=== PATIENT | female | born 1980 | race Caucasian/White ===

== ENCOUNTER → 2020-12-06 16:07 | Outpatient (CLI) | payer OTHER, SELFPAY ==
[2020-12-06 15:27] VITALS: BMI 27.3
[2020-12-09 21:04] LABS: HPV APTIMA, High Risk Negative (Negative)
== END ==
PROVIDERS: PCP Family Medicine; Referring Provider Nurse Practitioner Women's Health; Visit Provider Nurse Practitioner Women's Health
DX: Z12.4 Encounter for screening for malignant neoplasm of cervix (principal)
CPT/HCPCS: 87624; 88175; G0145

== ENCOUNTER → 2021-04-06 12:27 | Outpatient (CLI) | payer OTHER, SELFPAY ==
[2020-12-06 15:27] VITALS: BMI 27.3
--- NOTE | 2021-04-06 12:38 | MRI_ITS ---
STUDY: MRI BRAIN WITH AND WITHOUT CONTRAST (ATTENTION INTERNAL AUDITORY CANALS - I.A.C.''s) REASON FOR EXAM: Female, 40 years old. DIZZINESS --attn IAC TECHNIQUE: Standardized multiplanar fat and water weighted pulse sequences were obtained. IV 13cc dotarem was administered for the contrast portion of the examination. COMPARISON: None. FINDINGS: Normal bilateral temporal bones. Normal bilateral internal auditory canals. There is no demonstrated intracanalicular or cisternal vestibular schwannoma (acoustic neuroma). There is no enhancement of the bilateral VIIth or VIIIth cranial nerves. Normal bilateral cochlea, vestibules and semicircular canals. Normal size of the ventricles and extra-axial spaces for the patient''s age. Normal white matter tracts of the supratentorial brain. There is no evidence for recent intracranial ischemia or other cause of cytotoxic edema on diffusion weighted imaging (DWI). Normal bilateral basal ganglia. Normal thalami. Normal flow voids within the major intracranial circulation suggesting patency by spin echo criteria. Normal venous enhancement. There is no enhancing intra-axial or extra-axial abnormality. There is no extra-axial fluid accumulation. Normal sella turcica, pituitary gland, infundibular stalk, optic chiasm and hypothalamus. Normal tectal plate and pineal gland. Normal midbrain, fatou and medulla. Normal cerebellum. Normal basal cisterns. No demonstrated orbital abnormality, within the constraints of a routine brain study. Normal visualized paranasal sinuses. Normal calvarium and skull base. Normal visualized soft tissue structures. Normal visualized upper cervical spine. MRI/Brain W/WO Contrast IMPRESSION: Normal unenhanced and enhanced MRI of the bilateral internal auditory canals (I.A.C''s). Electronically Signed: Adarsh Mendoza MD at 10:21 EDT Tel , Service support ,
== END ==
PROVIDERS: PCP Family Medicine; Referring Provider Otolaryngology; Visit Provider Otolaryngology
DX: R42 Dizziness and giddiness (principal)
CPT/HCPCS: 70553; A9575

== ENCOUNTER → 2022-03-01 | Outpatient (CLI) | payer OTHER, SELFPAY ==
--- NOTE | 2022-03-01 12:19 | BI_ITS ---
MAMMOGRAPHY - BILATERAL SCREENING REASON FOR EXAM: Female, 41 years old. Routine annual screening examination. PERTINENT HISTORY: Non-contributory. TECHNIQUE: Digital bilateral breast kaylan (3D mammographic acquisition) in the CC and MLO projections. 2-D mediolateral oblique (MLO) and craniocaudad (CC) views of both breasts were obtained. CAD: Full Field Digital Mammography with Computer Added Detection was performed. COMPARISON: Comparison is made with prior outside examination dated 05/06/2018. FINDINGS: Breast Composition: The breasts are heterogeneously dense, which may obscure small masses. There are no dominant masses or suspicious calcifications. No other significant abnormalities are identified. There has been no significant change since the prior study. BI/SCRN MAMM (CAD)W/KAYLAN BILAT IMPRESSION: Stable bilateral screening mammogram. Yearly follow-up mammogram recommended. (A) ASSESSMENT CATEGORY: BIRADS Category 1: Negative. A letter regarding these results will be sent to the patient by the facility within 30 days. Approximately 10% of breast cancers are not detected by mammography. A normal mammogram should not delay biopsy of a clinically suspicious abnormality. [id number] Electronically Signed: Arian Zhu MD at 13:02 EDT ,
== END | disposition home or self-care (01) ==
LOC: OPBI 12:19
PROVIDERS: PCP Family Medicine; Referring Provider Nurse Practitioner Women's Health; Visit Provider Nurse Practitioner Women's Health
DX: Z12.31 Encounter for screening mammogram for malignant neoplasm of breast (principal)
CPT/HCPCS: 77063; 77067

== ENCOUNTER → 2022-03-05 | Outpatient (CLI) | payer OTHER, SELFPAY ==
--- NOTE | 2022-03-05 | SKTAG_PTH ---
PATIENT: JANETTE BARLOW LOC: [facility] U#:[id number] AGE/SX: 41/F ROOM: RE03/05/[address]: Dr. Cassidy Villa MD : 1980 BED: DIS: 03/05/2022 SPEC #: [id number] RECD: 03/05/22 16:23 STATUS: PAU TATUM #: [id number] SUE: 03/05/22 00:[address]: Cassidy Villa DEPT: SURGICAL PATHOLOGY RECD BY: Jose Ramon Catherine ENTERED: 03/06/22 11:55 SP TYPE: SKIN TAG LANIE DR: Dr. Saad Rocha MD Tissues: Skin appendage, NOS Procedures: Surgery Specimen Level IV HEADER OPERATION: Skin tag removal (vulva) PRE-OP DIAGNOSIS: Vulvar skin tag TISSUE SUBMITTED: Vulvar skin tag MICROSCOPIC DIAGNOSIS Vulvar lesion, biopsy: Polypoid intradermal nevus. AM:flora 03/07/2022 MICROSCOPIC DESCRIPTION Slides are reviewed. GROSS DESCRIPTION Received is one container labeled with the patient's name and not further designated. The specimen consists of a piece of stewart-white skin measuring 0.5 x 0.5 x 0.3 cm. The specimen is bisected and submitted entirely in one cassette. / LILIBETH:flora 03/06/2022 TC:5 CPT: 38524
== END | disposition home or self-care (01) ==
LOC: LABSPEC 16:32
PROVIDERS: PCP Family Medicine; Visit Provider Obstetrics & Gynecology
DX: L91.8 Other hypertrophic disorders of the skin (principal)
CPT/HCPCS: 88304; 88305

== ENCOUNTER → 2023-03-15 | Outpatient (CLI) | payer OTHER, SELFPAY ==
--- NOTE | 2023-03-15 10:30 | BI_ITS ---
MAMMOGRAPHY - BILATERAL SCREENING REASON FOR EXAM: Female, 42 years old. Routine annual screening examination. PERTINENT HISTORY: Non-contributory. TECHNIQUE: Digital bilateral breast kaylan (3D mammographic acquisition) in the CC and MLO projections. 2-D mediolateral oblique (MLO) and craniocaudad (CC) views of both breasts were obtained. CAD: Full Field Digital Mammography with Computer Added Detection was performed. COMPARISON: Mammogram from 03/01/2022. FINDINGS: Breast Composition: The breasts are heterogeneously dense, which may obscure small masses. There are no dominant masses or suspicious calcifications. No other significant abnormalities are identified. There has been no significant change since the prior study. BI/SCRN MAMM (CAD)W/KAYLAN BILAT IMPRESSION: Stable bilateral screening mammogram. Yearly follow-up mammogram recommended. (A) ASSESSMENT CATEGORY: BIRADS Category 1: Negative. A letter regarding these results will be sent to the patient by the facility within 30 days. Approximately 10% of breast cancers are not detected by mammography. A normal mammogram should not delay biopsy of a clinically suspicious abnormality. Electronically Signed: Devin Triplett DO at 16:06 EDT ,
== END | disposition home or self-care (01) ==
LOC: OPBI 10:27
PROVIDERS: PCP Family Medicine; Referring Provider Nurse Practitioner Women's Health; Visit Provider Nurse Practitioner Women's Health
DX: Z12.31 Encounter for screening mammogram for malignant neoplasm of breast (principal)
CPT/HCPCS: 77063; 77067

== ENCOUNTER → 2024-03-10 | Outpatient (CLI) | payer OTHER, SELFPAY ==
[2024-03-10 13:38] LABS: HIV - WCH Non-Reactive (Nonreactive); Hepatitis C Antibody Non-Reactive (Nonreactive); Syphilis Antibodies Non-reactive
[2024-03-11 10:09] LABS: HSV 1 IgG < 0.91 index (0.00-0.90); HSV 2 IgG < 0.91 index (0.00-0.90)
[2024-03-12 20:09] LABS: Chlamydia By Nucleic Acid AMP Negative (Negative); Gonococcus By Nucleic Acid AMP Negative (Negative)
== END | disposition home or self-care (01) ==
PROVIDERS: PCP Family Medicine; Referring Provider Nurse Practitioner Women's Health; Visit Provider Nurse Practitioner Women's Health
DX: Z20.2 Contact with and (suspected) exposure to infections with a predominantly sexual mode of transmission (principal)
CPT/HCPCS: 36415; 86695; 86696; 86703; 86780; 86803; 87491; 87591

== ENCOUNTER → 2024-03-16 | Outpatient (CLI) | payer OTHER, SELFPAY ==
--- NOTE | 2024-03-16 13:13 | BI_ITS ---
MAMMOGRAPHY - BILATERAL SCREENING REASON FOR EXAM: Female, 43 years old. Routine annual screening examination. PERTINENT HISTORY: Non-contributory. TECHNIQUE: Digital bilateral breast kaylan (3D mammographic acquisition) in the CC and MLO projections. 2-D mediolateral oblique (MLO) and craniocaudad (CC) views of both breasts were obtained. CAD: Full Field Digital Mammography with Computer Added Detection was performed. COMPARISON: Comparison is made with prior study dated March 15, 2023 and March 01, 2022. FINDINGS: Breast Composition: The breasts are heterogeneously dense, which may obscure small masses. There are no dominant masses or suspicious calcifications. No other significant abnormalities are identified. There has been no significant change since the prior study. BI/SCRN MAMM (CAD)W/KAYLAN BILAT IMPRESSION: Stable bilateral screening mammogram. Yearly follow-up mammogram recommended. (A) ASSESSMENT CATEGORY: BIRADS Category 1: Negative. A letter regarding these results will be sent to the patient by the facility within 30 days. Approximately 10% of breast cancers are not detected by mammography. A normal mammogram should not delay biopsy of a clinically suspicious abnormality. [id number] Electronically Signed: Arian Zhu MD at 14:26 EDT ,
== END | disposition home or self-care (01) ==
PROVIDERS: PCP Family Medicine; Referring Provider Nurse Practitioner Women's Health; Visit Provider Nurse Practitioner Women's Health
DX: Z12.31 Encounter for screening mammogram for malignant neoplasm of breast (principal)
CPT/HCPCS: 77063; 77067

== ENCOUNTER → 2024-06-23 | Outpatient (CLI) | payer OTHER, SELFPAY ==
--- NOTE | 2024-06-23 16:21 | US_ITS ---
HISTORY: check position of IUD. TECHNIQUE: Transabdominal and transvaginal pelvic ultrasound was performed with alegre scale and color Doppler evaluation. 158 images. COMPARISON: None. FINDINGS: UTERUS: 8.5 x 4.5 x 5.9 cm. 1.2 x 1.3 x 1.4 cm and 1.5 x 1.7 x 1.8 cm round heterogeneous lesions anteriorly. ENDOMETRIAL THICKNESS: 4 mm. Intrauterine device in place. RIGHT OVARY: 1.1 x 1.1 x 3.2 cm. No adnexal masses. LEFT OVARY: 3 x 5 x 5.4 cm. 3.4 x 4.3 x 4.5 cm simple cyst. FREE FLUID: Very mild. URINARY BLADDER: Well-distended at 457 cc. US/Pelvic w/ Transvaginal IMPRESSION: Intrauterine device in place. Leiomyomatous uterus. 4.5 cm left ovarian cyst with mild free fluid in the pelvis; no follow-up is necessary. Electronically Signed: Angie Anderson MD at 8:37 EDT ,
== END | disposition home or self-care (01) ==
LOC: US 16:20
PROVIDERS: PCP Family Medicine; Referring Provider Nurse Practitioner Women's Health; Visit Provider Nurse Practitioner Women's Health
DX: R10.2 Pelvic and perineal pain (principal); Z30.431 Encounter for routine checking of intrauterine contraceptive device
CPT/HCPCS: 76830; 76856

== ENCOUNTER → 2025-03-19 | Outpatient (CLI) | payer OTHER, SELFPAY ==
--- NOTE | 2025-03-19 15:30 | BI_ITS ---
EXAM: SCRN MAMM (CAD)W/KAYLAN BILAT DATE: 03/19/2025 CLINICAL HISTORY: F, Age 44 y/o , SCREENING FOR BREAST CANCER TECHNIQUE: SCRN MAMM (CAD)W/KAYLAN BILAT COMPARISON: Prior exam(s) were compared FINDINGS: TISSUE DENSITY: The breasts are heterogeneously dense, which may obscure small masses. Bilateral Breast Mammographic Findings: Right breast: There is an asymmetry in the inner right breast posterior depth. Left breast: No significant masses, calcifications or other abnormalities are identified. BI/SCRN MAMM (CAD)W/KAYLAN BILAT IMPRESSION: Additional views are recommended of the right breast. No mammographic evidence of malignancy in the left breast. OVERALL FINAL ASSESSMENT BI-RADS 0: INCOMPLETE - NEED ADDITIONAL IMAGING EVALUATION. RECOMMENDATION: Additional Views obtained/call backs A letter with findings and recommendations will be mailed to the patient. Reading Location: [id number]
== END | disposition home or self-care (01) ==
LOC: OPBI 15:25
PROVIDERS: PCP Family Medicine; Referring Provider Nurse Practitioner Women's Health; Visit Provider Nurse Practitioner Women's Health
DX: Z12.31 Encounter for screening mammogram for malignant neoplasm of breast (principal)
CPT/HCPCS: 77063; 77067

== ENCOUNTER → 2025-03-23 | Outpatient (CLI) | payer OTHER, SELFPAY ==
--- NOTE | 2025-03-23 09:29 | BI_ITS ---
EXAM: DIAG MAMM W/CAD, UNILAT; BREAST LIMITED UNILATERAL; RT BRST UNILAT KAYLAN ADD-ON 03/23/2025 CLINICAL HISTORY: F, Age 44 y/o , ASYMMETRY TECHNIQUE: DIAG MAMM W/CAD, UNILAT; BREAST LIMITED UNILATERAL; RT BRST UNILAT KAYLAN ADD-ON. COMPARISON: Prior exam(s) dated 03/19/2025, 03/16/2024, 03/15/2023, 03/01/2022. FINDINGS: MAMMOGRAM: TISSUE DENSITY: The breasts are heterogeneously dense, which may obscure small masses. The mammogram demonstrates that the patient has dense breasts. Supplemental screening with whole breast ultrasound or MRI may be considered for further evaluation. Unilateral Right Breast Mammographic Findings: Follow-up examination performed for the asymmetry in the right breast visualized on examination of 03/19/2025. On the present examination, the asymmetry in the medial right breast at posterior depth partially effaces. ULTRASOUND: Targeted right breast ultrasound performed of the medial right breast. On the present examination, there is no sonographic correlate. BI/Rt Brst Unilat Kaylan Add-On IMPRESSION: The asymmetry in the medial right breast likely represents dense fibroglandular tissues. OVERALL FINAL ASSESSMENT BI-RADS 2: BENIGN RECOMMEND ANNUAL MAMMOGRAPHIC SCREENING. RECOMMENDATION: Routine annual follow-up in 1 Year A letter with findings and recommendations will be mailed to the patient. Reading Location: [id number]
--- NOTE | 2025-03-23 09:29 | BI_ITS ---
EXAM: DIAG MAMM W/CAD, UNILAT; BREAST LIMITED UNILATERAL; RT BRST UNILAT KAYLAN ADD-ON 03/23/2025 CLINICAL HISTORY: F, Age 44 y/o , ASYMMETRY TECHNIQUE: DIAG MAMM W/CAD, UNILAT; BREAST LIMITED UNILATERAL; RT BRST UNILAT KAYLAN ADD-ON. COMPARISON: Prior exam(s) dated 03/19/2025, 03/16/2024, 03/15/2023, 03/01/2022. FINDINGS: MAMMOGRAM: TISSUE DENSITY: The breasts are heterogeneously dense, which may obscure small masses. The mammogram demonstrates that the patient has dense breasts. Supplemental screening with whole breast ultrasound or MRI may be considered for further evaluation. Unilateral Right Breast Mammographic Findings: Follow-up examination performed for the asymmetry in the right breast visualized on examination of 03/19/2025. On the present examination, the asymmetry in the medial right breast at posterior depth partially effaces. ULTRASOUND: Targeted right breast ultrasound performed of the medial right breast. On the present examination, there is no sonographic correlate. BI/DIAG MAMM W/CAD, UNILAT IMPRESSION: The asymmetry in the medial right breast likely represents dense fibroglandular tissues. OVERALL FINAL ASSESSMENT BI-RADS 2: BENIGN RECOMMEND ANNUAL MAMMOGRAPHIC SCREENING. RECOMMENDATION: Routine annual follow-up in 1 Year A letter with findings and recommendations will be mailed to the patient. Reading Location: [id number]
--- OUTSIDE RECORDS SUMMARY | 2025-03-23 19:55 | XMS RPT_ITS | CCD ---
Author Organization [facility] CliniSynj Care Team Providers Care Internal Auditor Name Role Phone Cassidy Villa MD Unavailable Schloneger, Lara E Unavailable Unavailable Schloneger Lara E Unavailable Unavailable SOUZDALNITSKI, NEHA Admitting Unavailabl e SOUZDALNITSKI, NEHA Attending Unavailabl e AA UNKNOWN PCP, UNKNOWN Primary Care Unavaila ble SOUZDANICOLAKI, NEHA Admitting Unavailabl e SOUZDALNITSKI, NEHA Attending Unavailabl e AA UNKNOWN PCP, UNKNOWN Primary Care Unavaila Deniz [place] Primary Care Provider [phone] Dr. Deniz Melchor Primary Care Provider Dr. Deniz Melchor Referring Provider Mohamud ENGINE LATHE SET UP OPERATORCORNELIUS Attending Provider Dr. Cassidy Villa Attending Provider [phone] Dr. Deniz Melchor Primary Care Provider [phone] Dr. Deniz Melchor Referring Provider Mohamud ENGINE LATHE SET UP OPERATORCORNELIUS Attending Provider [phone] DENIZ MELCHOR MD Primary Care Physician Ashly PT, Sue Unavailable DENIZ Solis MD Primary Care Unavailable DENIZ MELCHOR MD Attending Unavailable PAIGE GIBSON MD Attending Unavailable DENIZ MELCHOR MD Primary Care Unavailable DENIZ MELCHOR MD Primary Care Unavailable PAIGE GIBSON MD Attending Unavailable DENIZ MELCHOR MD Primary Care Unavailable DENIZ MELCHOR MD Attending Unavailable DENIZ MELCHOR MD Attending Unavailable DENIZ MELCHOR MD Primary Care Unavailable Dr. Deniz Melchor MD Primary Care Provider Dr. Deniz Melchor MD Referring Provider [place] ENGINE LATHE SET UP OPERATOR-C, Kesha Attending Provider [place] ENGINE LATHE SET UP OPERATOR, Kesha Attending Unavailable Deniz Melchor Primary Care Unavailable Deniz Melchor Referring Unavailable [place] ENGINE LATHE SET UP OPERATOR, Kesha Attending Unavailable Mohamud ENGINE LATHE SET UP OPERATOR, Kesha Referring Unavailable Ray Melchoren Primary Care Unavailable [place] ENGINE LATHE SET UP OPERATOR, Kesha Attending Unavailable Mohamud ENGINE LATHE SET UP OPERATOR, Kesha Referring Unavailable Deniz Melchor Primary Care Unavailable Mohamud ENGINE LATHE SET UP OPERATOR, Kesha Referring Unavailable [place] ENGINE LATHE SET UP OPERATOR, Kesha Attending Unavailable Ray Melchoren Primary Care Unavailable Mohamud ENGINE LATHE SET UP OPERATOR, Kesha Attending Unavailable AjRayen Primary Care Unavailable Deniz Melchor Referring Unavailable [place] ENGINE LATHE SET UP OPERATOR-C, Kesha Referring Provider Allergies Allergy Classification Reported Allergen(s) Allergy Type Date of Onset Reaction(s) Facility (4 sources) [facility]ript[facility] Drug Allergy 7 [facility] (2 sources) Albuterol Drug Allergy 0 [facility] Work Phone: (7 sources) POISON BEA EXTRACT Drug Allergy 0 Hives, Itching, Swelling [facility] Work Phone: (11 sources) [facility]riptan; Translations: [sumatriptan] Drug Allergy 7 Anaphylaxis, Other (See Comments), Anaphylaxis (disorder) [facility] Work Phone: (2 sources) Food Propensity to adverse reactions to drug 0 [facility] Work Phone: (2 sources) Other Propensity to adverse reactions 0 Nausea Only [facility] Work Phone: (9 sources) Albuterol; Translations: [albuterol] Drug Allergy 2 Pulse fast (finding), Dizziness and giddiness (finding) [facility] (6 sources) SUMAtriptan; Translations: [sumatriptan succinate] Drug Allergy 2 Anaphylaxis [facility] (1 source) Albuterol Drug Allergy 5 [facility] Repository (1 source) [facility]riptan Drug Allergy 5 [facility] Repository (1 source) poison bea extract Drug allergy (disorder) 5 [facility] Repository Medications Current Medications Medication Drug Class(es) Dates Sig (Normalized) Sig (Original) acetaminophen 325 mg oral capsule (11 sources) Start: 03-31-2024 acetaminophen 325 mg oral capsule Dose : 325 mg = 1 cap(s), Oral, q4h, PRN as needed for pain, # 20 cap(s), 0 Refill(s) Start Date: 03/31/24 Status: Ordered Start: 12-13-2020 take 650 mg by mouth every six hours, then take 4000 mg by mouth every twenty-four hours 650 mg, Oral, EVERY 6 HOURS, First dose on Sat12/13/20 at 1900 Maximum dose of acetaminophen is 4000 mg from all sources in 24 hours. Post-op Start: 12-13-2020 End: 12-13-2020 acetaminophen (TYLENOL) tabl et 1,000 mg Start: 10-28-2019 take 1 capsule by [facility] once as needed Acetaminophen 325 mg capsule Active 325 mg PO ONCE as needed October 28, 2019 1:00am acetaminophen (T YLENOL) 325 MG tablet 1 tablet as needed 0 Active acetaminophen 325 mg / HYDROcodone bitartrate 5 mg oral tablet (1 source) Opioid Agonist Start: 04-02-2024 End: 04-09-2024 [place] 325- 5 mg oral tablet Dose = 1 tab(s), Oral, q4h, PRN Pain, scale 1-6, X 7 day(s), # 15 tab(s), 0 Refill(s), Pharmacy: [facility]/pharmacy #[id number], Acute post-operative pain, 162.6, cm, 04/02/24 10:22:00 EDT, Height, 68.2, kg, 04/02/24 10:22:00 EDT, Dosing Weight Start Date: 04/02/24 Stop Date: 04/09/24 Status: Ordered acetaminophen 325 mg / oxyCODONE hydrochloride 5 mg oral tablet (1 source) Opioid Agonist Start: 12-16-2020 End: 12-23-2020 take 1 tablet by mouth every six hours as needed for pain, then take 1 tablet by mouth as needed for pain oxyCODONE-acetamin ophen (PERCOCET) 5-325 MG per tablet Indications: Neurogenic thoracic outlet syndrome of right brachial plexus Take 1 tablet by mouth every 6 hours as needed for Pain for up to 7 days. Intended supply: 7 days. Take lowest dose possible to manage pain 28 tablet 0 12/16/2020 12/23/2020 Active ascorbic acid 60 mg / beta carotene 5000 unt / copper sulfate 40 mg / dl-alpha tocopheryl acetate 30 unt / sodium selenite 0.04 mg / zinc oxide 40 mg oral tablet (2 sources) Vitamin C take 1 tablet by mouth once daily Multiple Vitamins-Minerals (HAIR/SKIN/NAILS/B IOTIN) TABS Take 5,000 mcg by mouth daily 0 Active bisacodyl 10 mg rectal suppository (1 source) Stimulant Laxative Start: 12-13-2020 take 10 mg rectal route once daily as needed for constipation 10 mg, Rectal, DAILY PRN, Constipation, Starting Sat12/13/20 at 1839 Second line therapy for constipation, After 24 hours, if no result from first line PRN therapy, give second line therapy in combination with first line therapy. Post-op Suyjdazjnl-BYWL-Wr ffeine (FIORICET PO) (2 sources) Butalbital-APAP- Ca ffeine (FIORICET PO) Take by mouth as needed 0 Active docusate sodium 50 mg / sennosides, longterm 8.6 mg oral tablet (1 source) Start: 12-14-2020 take 2 tablets by mouth once daily 2 tablet, Oral, DAILY, First dose on Sat12/14/20 at 0900 0.4 ml enoxaparin sodium 100 mg/ml prefilled syringe (1 source) Low Molecular Weight Heparin Start: 12-14-2020 inject 40 mg by subcutaneous injection once daily 40 mg, Subcutaneous, DAILY, First dose on Sat12/14/20 at 0900, Post-op fluticasone propionate 0.05 mg/actuat metered dose nasal spray (17 sources) Corticosteroid Start: 04-14-2021 Flonase 50 mcg/inh nasal spray qDay, PRN Allergy symptoms, 0 Refill(s) Start Date: 04/14/21 Status: Ordered Start: 12-13-2020 take 2 spray(s) nasa l route once daily 2 spray, Each Nostril, DAILY, First dose on Sat12/13/20 at 1900 Start: 12-06-2020 take 50 ug nasal rou te once daily Fluticasone Propionate (Flonase Allergy Relief) 50 mcg/actuation spray,suspension Active 1 NMA INTRANASAL DAILY December 06, 2020 12:00am administer into each nostril Start: 12-06-2020 take 1 spray(s) nasa l route once daily Fluticasone Propionate (Flonase Allergy Relief) 50 mcg/actuation spray,suspension Active 1 SPRAY INTRANASAL DAILY December 06, 2020 12:00am administer into each nostril Start: 07-14-2018 End: 10-28-2019 Fluticasone Propionate (Flon ase Allergy Relief) 50 mcg/actuation spray,suspension Discontinued 1 NMA INTRANASAL DAILY July 14, 2018 12:00am October 28, 2019 3:02pm Start: 07-14-2018 End: 10-28-2019 Fluticasone Propionate (Flon ase Allergy Relief) 50 mcg/actuation spray,suspension Discontinued 1 SPRAY INTRANASAL DAILY July 14, 2018 12:00am October 28, 2019 3:02pm fluticasone (LUC NASE ALLERGY RELIEF) 50 MCG/ACT nasal spray 1 spray in each nostril 0 Active 1 ml hydrALAZINE hydrochloride 20 mg/ml injection (1 source) Arteriolar Vasodilator Start: 12-13-2020 10 mg, Intravenous, EVERY 1 HOUR PRN, High Blood Pressure, Starting Sat12/13/20 at 1839 2nd Line: Give for SBP greater than 140 mmHG and HR <110 BPM Post-op Ibuprofen (1 source) Nonsteroidal Anti-inflammatory Drug Start: 04-02-2024 ibuprofen Dose : 200 mg =, 0 Refill(s) Start Date: 04/02/24 Status: Ordered ketoconazole 20 mg/ml medicated shampoo (4 sources) Azole Antifungal Start: 04-14-2021 ketoconazole 2% topical shampoo Apply 1 quinn, Topical, Once, PRN as needed, # 120 mL, 0 Refill(s), Shampoo, 68.4 Start Date: 04/14/21 Status: Ordered labetalol hydrochloride 5 mg/ml injectable solution (1 source) beta-Adrenergic Mark Start: 12-13-2020 10 mg, Intravenous, EVERY 2 HOURS PRN, High Blood Pressure, Starting Sat12/13/20 at 1839 1st Line: Give for SBP greater than 140 mmHG and HR >60 BPM Post-op levonorgestrel 0.853036 mg/hr intrauterine system (2 sources) Progestin, Progestin-containing Intrauterine Device Start: 03-16-2024 Levonorgestrel (Mirena) 21 mcg/24 hr (8 yrs) 52 mg intrauterine device Active 1 NMA INTRA-UTER ONCE March 16, 2024 12:00am as a single dose meclizine hydrochloride 12.5 mg oral tablet (17 sources) Antiemetic Start: 04-11-2020 meclizine 12.5 mg oral tablet Dose : 12.5 mg = 1 tab(s), Oral, TID, PRN as needed for dizziness, # 30 tab(s), 0 Refill(s) Start Date: 04/11/20 Status: Ordered Start: 10-28-2019 End: 02-27-2022 take 1 tablet by mouth once daily as needed Meclizine 12.5 mg tablet Active 12.5 mg PO DAILY as needed February 27, 2022 10:00am 1 ml morphine sulfate 2 mg/ml injection (1 source) Opioid Agonist Start: 12-13-2020 take 2 mg by mouth every four hours as needed for pain 2 mg, Intravenous, EVERY 4 HOURS PRN, breakthrough pain, Starting Sat12/13/20 at 1839 If oral and IV narcotics ordered, use oral first and only use IV if oral is ineffective or cannot take oral. Do Not give oral and IV within 1 hour of each other unless specifically ordered. Multivitamin preparation (4 sources) Start: 06-14-2021 take 1 tablet by mouth once daily Multivitamin Dose = 1 tab(s), Oral, Daily, 0 Refill(s) Start Date: 06/14/21 Status: Ordered Multivitamin With Minerals (Hair,Skin And Nails) tablet (5 sources) Start: 12-06-2020 take 1 tablet by mouth once daily Multivitamin With Minerals (Hair,Skin And Nails) tablet Active 1 TABLET PO DAILY December 06, 2020 3:26pm Start: 12-06-2020 Multivitamin W ith Minerals (Hair,Skin And Nails) tablet Active 1 {tbl} PO DAILY December 06, 2020 12:00am Start: 12-06-2020 take 1 tablet by fernando th once daily Multivitamin With Minerals (Hair,Skin And Nails) tablet Active 1 TABLET PO DAILY December 06, 2020 12:00am nystatin 088235 unt/ml topical cream (1 source) Polyene Antifungal Start: 12-17-2023 nystatin 100,000 units/g topical cream Apply 1 quinn, Topical, BID, # 30 gram(s), 1 Refill(s), Pharmacy: [facility]/pharmacy #[id number], Cream, 167, cm, 12/17/23 7:38:00 EDT, Height, 70.7, kg, 12/17/23 7:38:00 EDT, Dosing Weight Start Date: 12/17/23 Status: Ordered ondansetron (ZOFRAN-ODT) disintegrating tablet 4 mg (1 source) Start: 12-13-2020 ondansetron (ZOFRAN-ODT) disintegrating tablet 4 mg oxyCODONE (1 source) Opioid Agonist Start: 12-13-2020 oxyCODONE (ROXICODONE) immediate release tablet 5 mg polyethylene glycol 3350 71500 mg powder for oral solution (1 source) Osmotic Laxative Start: 12-16-2020 polyethylene glycol (GLYCOLAX) packet 17 g pramoxine hydrochloride 10 mg/ml topical lotion (1 source) Start: 02-24-2024 End: 03-23-2024 apply 1 dose topically three times daily as needed Prax 1% topical lotion Dose = 1 quinn, Topical, TID, PRN for itching, X 14 day(s), # 120 mL, 1 Refill(s), Pharmacy: [facility]/pharmacy #[id number], 162, cm, 02/24/24 15:07:00 EDT, Height, kg, 02/24/24 15:07:00 EDT, Dosing Weight Start Date: 02/24/24 Stop Date: 03/23/24 Status: Ordered predniSONE 5 mg oral tablet (2 sources) Start: 04-28-2024 Prednisone 5 mg tablets,dose pack Active 5 mg PO As Directed April 28, 2024 12:00am see taper instructions psyllium 520 mg oral capsule (2 sources) Start: 03-31-2024 take 5 capsules by mouth twice daily as needed for constipation Metamucil 520 mg oral capsule 5 cap(s), Oral, BID, PRN for constipation, 0 Refill(s) Start Date: 03/31/24 Status: Ordered sertraline 50 mg oral tablet (12 sources) Serotonin Reuptake Inhibitor Start: 10-28-2019 End: 04-26-2024 take 1 tablet by mouth once daily Sertraline (Zoloft) 50 mg tablet Active 50 mg PO DAILY October 28, 2019 1:00am 3 ml sodium chloride 9 mg/ml injection (2 sources) Start: 12-13-2020 10 mL, Intravenous, EVERY 12 HOURS SCHEDULED (2 times per day), First dose on Sat12/13/20 at 2100, Post-op Start: 12-13-2020 take 10 mL intravenous route o nce 10 mL, Intravenous, PRN, Line Care, Starting Sat12/13/20 at 1839 After every IV line use Post-op tiZANidine 2 mg oral capsule (2 sources) Central alpha-2 Adrenergic Agonist Start: 03-15-2025 take 1 capsule by mouth every eight hours as needed Tizanidine (Zanaflex) 2 mg capsule Active 2 mg PO Q8H as needed March 15, 2025 12:00am Completed/Discontinued Medications Medication Drug Class(es) Dates Sig (Normalized) Sig (Original) acetaminophen 325 mg / butalbital 50 mg / caffeine 40 mg oral tablet (14 sources) Barbiturate, Central Nervous System Stimulant, Methylxanthine Start: 04-24-2021 take 1 tablet by mouth every four hours as needed, then take 6 tablets by mouth once daily as needed APAP/butalbital/c affeine 325-50-40 mg oral tablet (Fioricet) Dose = 2 tab(s), Oral, q4h, PRN as needed, Not to exceed 6 tablets/day. To replace previously sent Rx., # 30 tab(s), 0 Refill(s), [facility], 167.5, cm, 04/14/21 10:53:00 EDT, Height, kg, 04/14/21 10:53:00 EDT, Dosing Weight Start Date: 04/24/21 Status: Ordered Start: 12-06-2020 End: 03-15-2025 Ouzncuohtd-Xrmqozufdjfbv-Tyu f 50-325-40 mg tablet Discontinued 1 {tbl} PO EVERY 6 HOURS as needed February 27, 2022 9:59am March 15, 2025 1:23pm Start: 12-06-2020 End: 02-27-2022 take 1 tablet by mouth every six hours Zqsdcjxknv-Loyhfupozsuri-Juym Active 1 T ABLET PO EVERY 6 HOURS February 27, 2022 9:59am calcium chloride 0.0014 meq/ ml / potassium chloride 0.004 meq/ml / sodium chloride 0.103 meq/ml / sodium lactate 0.028 meq/ml injectable solution (2 sources) Start: 12-13-2020 End: 12-13-2020 Intravenous, at 125 mL/hr, CONTINUOUS, Starting Sat12/13/20 at 1900, For 5 hours, Post-op Start: 12-13-2020 End: 12-13-2020 lactated ringers infusion ceFAZolin 2000 mg injection (1 source) Cephalosporin Antibacterial Start: 12-13-2020 End: 12-13-2020 ceFAZolin (ANCEF) 2000 mg in dextrose 4 % 100 mL IVPB (premix) celecoxib 200 mg oral capsule (1 source) Nonsteroidal Anti-inflammatory Drug Start: 12-13-2020 End: 12-13-2020 celecoxib (CELEBREX) capsule 200 mg cetirizine hydrochloride 10 mg oral tablet (5 sources) Histamine-1 Receptor Antagonist Start: 10-28-2019 End: 12-06-2020 take 1 tablet by mouth once daily Cetirizine (Zyrtec) 10 mg tablet Discontinued 10 mg PO DAILY October 28, 2019 1:00am December 06, 2020 3:24pm clobetasol propionate 0.0005 mg/mg topical ointment (4 sources) Corticosteroid Start: 07-03-2017 CLOBETASOL PROPIONATE 0.05 % OINT apply pea sized amount nightly x 6-12 weeks then 1-2x weekly CLOBETASOL PROPIONATE [id number] Cassidy Villa MD famotidine 20 mg oral tablet (1 source) Histamine-2 Receptor Antagonist Start: 12-13-2020 End: 12-13-2020 famotidine (PEPCID) tablet 20 mg 2 ml fentaNYL 0.05 mg/ml injection (1 source) Opioid Agonist Start: 12-13-2020 End: 12-13-2020 fentaNYL (SUBLIMAZE) injection 50 mcg gabapentin 100 mg oral capsule (1 source) Anti-epileptic Agent Start: 12-13-2020 End: 12-13-2020 gabapentin (NEURONTIN) capsule 100 mg 1 ml HYDROmorphone hydrochloride 1 mg/ml cartridge (1 source) Opioid Agonist Start: 12-13-2020 End: 12-13-2020 HYDROmorphone (DILAUDID) injection 0.5 mg 2 ml ondansetron 2 mg/ml injection (1 source) Serotonin-3 Receptor Antagonist Start: 12-13-2020 End: 12-13-2020 ondansetron (ZOFRAN) injection 4 mg Vit,Qftx38-Ucyr-Ebe ic (3 sources) Start: 01-29-2014 End: 07-07-2018 take 1 tablet by mouth once daily Vit,Afno67-Neha-Wa lic Discontinued 1 TABLET PO DAILY January 29, 2014 6:43am July 07, 2018 1:50pm Start: 01-29-2014 End: 07-07-2018 take 1 tablet by mouth once daily Vit,Rmwp43-Drgb-Pftgo Discontinued 1 TABLET PO DAILY January 29, 2014 12:00am July 07, 2018 1:50pm Vit,Mymw27-Ggbw-Urcgb 1 TABLET tablet (2 sources) Start: 01-29-2014 End: 07-07-2018 take 1 tablet by mouth once daily Vit,Nllj87-Fotx-Yjarj 1 TABLET tablet Discontinued 1 {tbl} PO DAILY January 29, 2014 12:00am July 07, 2018 1:50pm 1 ml promethazine hydrochloride 25 mg/ml injection (1 source) Phenothiazine Start: 12-13-2020 End: 12-13-2020 promethazine (PHENERGAN) injection 12.5 mg Start: 12-13-2020 End: 12-13-2020 promethazine (PHENERGAN) inj ection 12.5 mg Turmeric Root Extract (7 sources) Start: 12-06-2020 End: 02-27-2022 take 500 mg by mouth once daily Turmeric Root Extract Discontinued 500 MG PO DAILY December 06, 2020 3:26pm February 27, 2022 10:00am Start: 12-06-2020 End: 02-27-2022 take 1 capsule by mouth once daily Turmeric Root Extract 500 mg capsule Discontinued 500 mg PO DAILY December 06, 2020 12:00am February 27, 2022 10:00am Start: 12-06-2020 End: 02-27-2022 take 500 mg by mouth once daily Turmeric Root Extract Discontinued 500 MG PO DAILY December 06, 2020 12:00am February 27, 2022 10:00am take 1 tablet by fernando th once daily Turmeric 500 MG TABS Take 500 mg by mouth daily 0 Active Problems Active Problems Problem Classification Problem Date Documented Da te Episodic/Chronic Abdominal pain (3 sources) Pain in pelvis; Translations: [Pelvic and perineal pain] Onset: 4 06-19-2024 Episodic Allergic reactions (4 sources) Perianal dermatitis 12-17-2023 Episodic Anxiety disorders (11 sources) Anxiety; Translations: [Anxiety disorder, unspecified] Onset: 0 07-27-2020 Chronic Conditions associated with dizziness or vertigo (15 sources) Vertigo; Translations: [Dizziness and giddiness] Onset: 0 07-27-2020 Episodic Hemorrhoids (7 sources) Thrombosed external hemorrhoids; Translations: [Hemorrhoids] 12-17-2023 Episodic Mood disorders (4 sources) Depressive disorder 06-02-2019 Chronic Other aftercare (1 source) Other operations research manager (current) drug therapy; Translations: [OTH ALF CURRENT DRUG THERAPY] Onset: 0 Episodic Other bone disease and musculoskeletal deformities (4 sources) Costal chondritis 05-02-2023 Episodic Other female genital disorders (1 source) Other specified noninflammatory disorders of vulva and perineum; Translations: [Other specified noninflammatory disorders of vulva and perineum] Episodic Other gastrointestinal disorders (4 sources) Irritable bowel syndrome 06-02-2019 Chronic Other inflammatory condition of skin (2 sources) Pruritus ani 03-23-2024 Episodic Other injuries and conditions due to external causes (4 sources) Injury of buttock 12-17-2023 Episodic Other nervous system disorders (2 sources) Brachial plexus disorders; Translations: [BRACHIAL PLEXUS DISORDERS] Onset: 0 Chronic Other nervous system disorders (1 source) Neurogenic thoracic outlet syndrome; Translations: [Neurogenic thoracic outlet syndrome] Onset: 0 07-27-2020 Chronic Other nervous system disorders (2 sources) Brachial plexus disorder; Translations: [Brachial plexus disorders] Onset: 0 07-27-2020 Chronic Other nervous system disorders (2 sources) Thoracic outlet syndrome; Translations: [Thoracic outlet syndrome] Onset: 1 12-13-2020 Chronic Other nervous system disorders (1 source) Postoperative pain ; Translations: [Other acute postprocedural pain] Onset: 4 Episodic Other nervous system disorders (3 sources) Neurogenic thoracic outlet syndrome of right brachial plexus; Translations: [Neurogenic thoracic outlet syndrome of right brachial plexus] Onset: 0 12-13-2020 Other non-traumatic joint disorders (2 sources) Arthritis of acromioclavicular joint; Translations: [Acromioclavicular joint arthritis] Onset: 0 07-27-2020 Chronic Other screening for suspected conditions (not mental disorders or infectious disease) (3 sources) Encounter for screening mammogram for malignant neoplasm of breast; Translations: [Encounter for other screening for malignant neoplasm of breast] Onset: 5 Episodic Other skin disorders (6 sources) Lichen sclerosus et atrophicus; Translations: [Lichen sclerosus et atrophicus] Onset: 7 07-03-2017 Chronic Other upper respiratory disease (4 sources) Seasonal allergy 05-02-2023 Chronic Spondylosis; intervertebral disc disorders; other back problems (2 sources) Cervical radiculopathy; Translations: [Cervical radiculopathy] Onset: 0 07-27-2020 Chronic Spondylosis; intervertebral disc disorders; other back problems (1 source) Cervicalgia; Translations: [CERVICALGIA] Onset: 0 Episodic Unclassified (4 sources) Screening for malignant neoplasm of cervix ; Translations: [Encounter for screening for malignant neoplasm of cervix] Onset: 7 07-04-2017 Unclassified (4 sources) Gynecologic examination ; Translations: [Encounter for gynecological examination (general) (routine) with abnormal findings] Onset: 7 07-03-2017 Unclassified (1 source) Myalgia, other site; Translations: [MYALGIA OTHER SITE] Onset: 0 Unclassified (2 sources) Female genitalia finding; Translations: [Normal pelvic exam] Onset: 7 07-27-2020 Unclassified (2 sources) IUD surveillance 06-19-2024 Past or Other Problems Problem Classification Problem Date Documented Date Episodic/Chronic Immunizations and screening for infectious disease (4 sources) Encounter for screening for human papillomavirus (HPV); Translations: [Encounter for screening for human papillomavirus (HPV)] Onset: 07-03-2017 07-04-2017 Episodic Malaise and fatigue (2 sources) Fatigue; Translations: [Other fatigue] Onset: 03-25-2018 07-27-2020 Episodic Other connective tissue disease (2 sources) Muscle pain; Translations: [Myalgia, other site] Onset: 07-14-2020 07-27-2020 Episodic Other connective tissue disease (2 sources) Impingement syndrome of shoulder region; Translations: [Impingement syndrome of shoulder region] Onset: 10-28-2019 07-27-2020 Episodic Unclassified (2 sources) Cancer cervix screening status; Translations: [Screening for malignant neoplasm of cervix] Onset: 07-03-2017 Resolved: 08-26-2020 08-26-2020 Unclassified (2 sources) Patient encounter status; Translations: [Encounter for screening for human papillomavirus (HPV)] Onset: 07-03-2017 Resolved: 08-26-2020 08-26-2020 Results Test Name Value Interpretation Reference Range Facility Breast imaging reportOrdered By: Aminta Black on 03-19-2025 Study report [facility] Imaging Services [address] [place] [id number] SCRN MAMM (CAD)W/KAYLAN BILAT MR#: [id number] Acct: [id number] Name: JANETTE BARLOW Rep #: [id number] : 1980 F 44 From: Silvestre Joseph MD PCP: Dr. Deniz Melchor MD Status: REG CLI Study:SCRN MAMM (CAD)W/KAYLAN BILAT Date of Exa m: 03/19/25 Exam# [id number] Ordering Dr: Kesha Mallory ENGINE LATHE SET UP OPERATOR ENGINE LATHE SET UP OPERATOR-C EXAM: SCRN MAMM (CAD)W/KAYLAN BILAT DATE: 03/19/2025 CLINICAL HISTORY: F, Age 44 y/o , SCREENING FOR BREAST CANCER TECHNIQUE: SCRN MAMM (CAD)W/KAYLAN BILAT COMPARISON: Prior exam(s) were compared FINDINGS: TISSUE DENSITY: The breasts are heterogeneously dense, which may obscure small masses. Bilateral Breast Mammographic Findings: Right breast: There is an asymmetry in the inner right breast posterior depth. Left breast: No significant masses, calcifications or other abnormalities are identified. BI/SCRN MAMM (CAD)W/KAYLAN BILAT IMPRESSION: Additional views are recommended of the right breast. No mammographic evidence of malignancy in the left breast. OVERALL FINAL ASSESSMENT BI-RADS 0: INCOMPLETE - NEED ADDITIONAL IMAGING EVALUATION. RECOMMENDATION: Additional Views obtained/call backs A letter with findings and recommendations will be mailed to the patient. Reading Location: [id number] CC: ENGINE LATHE SET UP OPERATOR-C Kesha Mallory; Dr. Deniz Melchor MD ~ Skidway Worker: Signed [facility] SCRN MAMM (CAD)W/KAYLAN BILATo n 03-19-2025 SCRN MAMM (CAD)W/KAYLAN BILAT [facility] Imaging Services [address] [place] [address] SCRN MAMM (CAD)W/KAYLAN BILAT MR#: [id number] Acct: [id number] Name: JANETTE BARLOW Rep #: [id number] : 1980 F 44 From: Aminta Urena i, MD PCP: Dr. Deniz Melchor MD Status: [facility] Study: SCRN MAMM (CAD)W/KAYLAN BILAT Date of Exam: 02/22 04/16 Exam# [id number] Ordering Dr: Kesha Mallory NP ENGINE LATHE SET UP OPERATOR -C EXAM: SCRN MAMM (CAD)W/KAYLAN BILAT DATE: 03/19/2025 CLINICAL HISTORY: F, Age 44 y/o , SCREENING FOR BREAST CANCER TECHNIQUE: SCRN MAMM (CAD)W/KAYLAN BILAT COMPARISON: Prior exam(s) were compared FINDINGS: TISSUE DENSITY: The breasts are heterogeneously dense, which may obscure small masses. Bilateral Breast Mammographic Findings: Right breast: There is an asymmetry in the inner right breast posterior depth. Left breast: No significant masses, calcifications or other abnormalities are identified. BI/SCRN MAMM (CAD)W/KAYLAN BILAT IMPRESSION: Additional views are recommended of the right breast. No mammographic evidence of malignancy in the left breast. OVERALL FINAL ASSESSMENT BI-RADS 0: INCOMPLETE - NEED ADDITIONAL IMAGING EVALUATION. RECOMMENDATION: Additional Views obtained/call backs A letter with findings and recommendations will be mailed to the patient. Reading Location: [id number] CC: CORNELIUS Mallory; Dr. Deniz Melchor MD Skidway Worker: Signed Normal [facility] Inspector Air Carrier Office Visit Reporton 03-15-2025 Inspector Air Carrier Office Visit Report [facility]'s [address], [address] [place] [address] OFFICE VISIT Date of Service: 03/15/25 MR#: [id number] Acct: [id number] Name: JANETTE BARLOW Rep #: [id number] : 1980 Provider: CORNELIUS hdz Age/Sex: 44/F Location: [facility] Status: Signed Intake Vital Signs 04/28/24 14:45 03/15/25 13:19 03/15/25 13:23 Height 5 ft 3 in 5 ft 3 in 5 ft 3 in Weight: 165 lb 6 oz BMI 29.2 BP 120/70 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 Is patient in pain?: No Allergies albuterol (From ProAir HFA) Allergy (Mild, Verified 03/15/25 13:18) rapid heartrate poison bea extract (Poison Bea Extract) Allergy (Verified 03/15/25 13:18) Hives sumatriptan (From Imitrex) Allergy (Verified 03/15/25 13:18) Anaphylaxis sumatriptan succinate (From Imitrex) Allergy (Verified 03/15/25 13:18) Anaphylaxis Medications ???Medication ???Instructions ???Recorded ???Confirmed ???Type acetaminophen 325 mg capsule 325 mg PO ONCE PRN 10/28/19 History sertraline 50 mg tablet (Zoloft) 50 mg PO DAILY 10/28/19 03/15/25 H istory fluticasone propionate 50 1 spray intranasal DAILY 12/06/20 03/15/25 History mcg/actuation nasal spray,suspension (Flonase Allergy Relief) multivitamin with minerals 1 tablet PO DAILY 12/06/20 5 History (Hair,Skin and Nails tablet) meclizine 12.5 mg tablet 12.5 mg PO DAILY PRN 02/27/2202/22 History levonorgestrel (Mirena) 1 device intrauterine ONCE 4 03/15/25 History prednisone 5 mg tablets in a dose 5 mg PO DIRECTED 04/28/2402/22 History pack tizanidine 2 mg capsule (Zanaflex) 2 mg PO Q8H PRN 03/15/25 5 History Is last menstrual period known: No Post menopausal: No Patient : No : No Nurse's Note: No menses with IUD. 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 current occupational exposures/hazards: No pets and animals: Yes history of recent travel: No Smoking Status: Never smoker second hand exposure: No alcohol intake: current alcohol intake frequency: holidays/special occasions only substance use type: does not use caffeine: Yes what type of physical activity do you participate in: none frequency: 1-2 times per week seatbelt use: always do you feel safe at home: Yes additional social history: History 2 Elective abortions Hx Para 2 Spontaneous abortions Hx # Term Pregnancies Ectopic pregnancies Hx # Pregnancies Multiple births # of living children Past Pregnancies Del. Date Name GA/Weeks Outcome Route Bth Weight Gen Labor Lgth Anesthesia Del [facility] Provider FOB Unknown 2010 Kristyn Unknown 2013 Mike HPI Encounter for routine gynecological examination Details: JANETTE BARLOW is a 44 year old who presents for annual exam. Continues with off and on breast tenderness but not new complaint. Significant caffeine intake. Same sexual partner. No menses with IUD Last PAP: 2020 History of abnormal PAP: no Last mammogram: 02/2024 History of abnormal mammogram: no Colon cancer screening: age 46 Other preventative health care screenings: Aj Ibarra Constitutional: Denies fatigue, weight gain or weight loss Cardio Card: Denies chest pain Resp Resp: Denies cough or dyspnea on exertion GI GI: Denies abdominal pain, bloating, change in stool character, constipation or vomiting : Reports as per HPI; Denies difficulty voiding, pelvic pain, urinary frequency, urinary incontinence, urinary urgency, vaginal discharge or vaginal pruritus Exam Const General: cooperative, healthy appearing, no acute distress and well developed Orientation: alert, oriented to person and oriented to place HENMT Head: normal to inspection Neck Neck: normal visual inspection Thyroid: thyroid normal Lymphatic: no lymphadenopathy noted Chest Breast inspection: normal inspection of the breasts and normal inspection of the axillae Breast palpation: normal palpation of the breasts, normal palpation of the axillae and no axillary lymp (more content not included)... Normal [facility] Pelvic w/ Transvaginalon Pelvic w/ Transvaginal [facility] Imaging Services [address] [place], [place] [id number] Pelvic w/ Transvaginal MR#: [id number] Acct: [id number] Name: JANETTE BARLOW Rep #: [id number] : 1980 F 44 From: Angie jaime MD PCP: Dr. Deniz Melchor MD Status: REG CLI Study: Pelvic w/ Transvaginal Date of Exam: 06/23/24 Exam# [id number] Ordering Dr: MohamudKesha howard NP, [place] [id number] HISTORY: check position of IUD. TECHNIQUE: Transabdominal and transvaginal pelvic ultrasound was performed with alegre scale and color Doppler evaluation. 158 images. COMPARISON: None. FINDINGS: UTERUS: 8.5 x 4.5 x 5.9 cm. 1.2 x 1.3 x 1.4 cm and 1.5 x 1.7 x 1.8 cm round heterogeneous lesions anteriorly. ENDOMETRIAL THICKNESS: 4 mm. Intrauterine device in place. RIGHT OVARY: 1.1 x 1.1 x 3.2 cm. No adnexal masses. LEFT OVARY: 3 x 5 x 5.4 cm. 3.4 x 4.3 x 4.5 cm simple cyst. FREE FLUID: Very mild. URINARY BLADDER: Well-distended at 457 cc. US/Pelvic w/ Transvaginal IMPRESSION: Intrauterine device in place. Leiomyomatous uterus. 4.5 cm left ovarian cyst with mild free fluid in the pelvis; no follow-up is necessary. Electronically Signed: Angie Anderson MD at 8:37 EDT , CC: CORNELIUS Mallory; Dr. Deniz Melchor MD Skidway Worker: Signed Normal [facility] Inspector Air Carrier Office Visit Reporton 04-28-2024 Inspector Air Carrier Office Visit Report [facility] [address] [place] [address]. 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 Is patient in pain?: No Allergies albuterol (From ProAir HFA) Allergy (Mild, Verified 04/28/24 14:40) rapid heartrate poison bea extract (Poison Bea Extract) Allergy (Verified 04/28/24 14:40) Hives sumatriptan (From Imitrex) Allergy (Verified 04/28/24 14:40) Anaphylaxis sumatriptan succinate (From Imitrex) Allergy (Verified 04/28/24 14:40) Anaphylaxis Medications ???Medication ???Instructions ???Recorded ???Confirmed ???Type acetaminophen 325 mg capsule 325 mg PO ONCE PRN 10/28/19 04/28/24 History sertraline 50 mg tablet (Zoloft) 50 mg PO DAILY 10/28/19 04/28/24 History fluticasone propionate 50 1 spray intranasal DAILY 12/06/20 04/28/24 History mcg/actuation nasal spray,suspension (Flonase Allergy Relief) multivitamin with minerals 1 tablet PO DAILY 12/06/20 04/28/24 History (Hair,Skin and Nails tablet) butalbital-acetaminoph en-caffeine 1 tab PO Q6H PRN 02/27/22 04/28/24 History 50 mg-325 mg-40 mg tablet meclizine 12.5 mg tablet 12.5 mg PO DAILY PRN 02/27/22 04/28/24 History levonorgestrel 21 mcg/24 hr (up to 1 device intrauterine ONCE 03/16/24 04/28/24 History 8 years) 52 mg intrauterine device (Mirena) prednisone 5 mg tablets in a dose 5 mg PO DIRECTED 04/28/24 04/28/24 History pack Is last menstrual period known: No Post menopausal: No Patient : No : No PFSH Medical History Thoracic outlet syndrome Lichen sclerosus IBS (irritable bowel syndrome) Anxiety with depression Surgical History Rib deformity History of wisdom tooth extraction, class II edentulism Hx laparoscopic cholecystectomy Family History Father Heart disease Diabetes Grandmother Diabetes Social History adopted: No housing: house number of children: 2 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 Denies pain although continues to have off and on light bleeding since placement. History 2 Elective abortions Hx Para 2 Spontaneous abortions Hx # Term Pregnancies Ectopic pregnancies Hx # Pregnancies Multiple births # of living children Past Pregnancies Del. Date Name GA/Weeks Outcome Route B[facility] 2010 Kristyn Unknown 2013 Mike ROS Const Constitutional: Reports system reviewed and no additional complaints, except as documented Eyes Eyes: Reports system reviewed and no additional complaints, except as documented GI GI: Denies abdominal pain or change in bowel habits : Reports as per HPI Exam Const General: cooperative and no acute distress Orientation: oriented x3 General: bladder normal to palpation External Female Exam: normal external appearance and normal appearance of the urethra Urethra: normal appearance of the urethra Speculum Exam - Vagina: normal appearance of the vagina, normal vaginal discharge, no lesions and nontender Speculum Exam - Cervix: normal appearance of the cervix (IUD strings noted 2-3 cm from os) Bimanual Exam- Vagina Uterus: normal bimanual exam, uterine size normal, bladder normal to palpation, uterine shape normal, uterine mobility normal and non-tender Bimanual Exam- Adnexa, other: normal adnexae, no masses and non-tender Coding Level of Care Code Off vis,est,level 2 Diagnoses IUD check up Z30.431 Assessment and Plan Assessment and Plan (1) IUD check up: (more content not included)... Normal [facility] LABORATORYOrdered By: Paige bailey on 04-02-2024 HCG ( test) Ql Negative (04/02/24 10:08 AM) Normal AO Manual Urine SS test (u) int Not detected Invalid Interpretation Code AO Manual Urine SS LABORATORYOrdered By: SYSTEM SYSTEM on 03-31-2024 Basophil, Absolute 0.1 103/mcL Normal 0.0 - 0.2 10^3/mcL AO Workflow SS Basophils/100 WBC (Bld) 1.2 % Normal 0.0 - 2.5 % AO Workflow SS Calcium [Mass/Vol] 9.4 mg/dL Normal 8.4 - 10. 2 mg/dL AO ADM SS Chloride [Moles/Vol] 105 mmol/L Normal 98 - 10 7 mmol/L AO ADM SS CO2 [Moles/Vol] 25 mmol/L Normal 22 - 29 mmol/L AO ADM SS Creatinine [Mass/Vol] 0.77 mg/dL Normal 0.55 - 1.02 mg/dL AO ADM SS Electrolyte Balance 10.0 mEq/L Normal 4.0 - 15 .0 mEq/L AO ADM SS Eosinophil, Absolute 0.1 103/mcL Normal 0.0 - 0 .4 10^3/mcL AO Workflow SS Eosinophils/100 WBC (Bld) 1.3 % Normal 0.0 - 7.0 % AO Workflow SS Erythrocyte distribution width (RBC) [Ratio] 14.0 % Normal 11.5 - 14.5 % AO Workflow SS GFR/1.73 sq M.predicted among blacks MDRD (S/P/Bld) [Vol rate/Area] 100 ml/min/1.73sqm Invalid Interpretation Code AO Chemistry S Comment on above: Interpretive Data: GFR Population mean for , Non- Americans Ages 20-29 = 116 mL/min/1.73 sq.m. Ages 30-39 = 107 mL/min/1.73 sq.m. Ages 40-49 = 99 mL/min/1.73 sq.m. Ages 50-59 = 93 mL/min/1.73 sq.m. Ages 60-69 = 85 mL/min/1.73 sq.m. Ages 70+ = 75 mL/min/1.73 sq.m. Chronic Kidney Disease: Less than 60 mL/min/1.73 square meters End Stage Renal Disease: Less than 15 mL/min/1.73 square meters GFR/1.73 sq M.predicted among non-blacks MDRD (S/P/Bld) [Vol rate/Area] 82 ml/min/1.73sqm Invalid Interpretation Code AO Chemistry S Comment on above: Interpretive Data: GFR Population mean for , Non- Americans Ages 20-29 = 116 mL/min/1.73 sq.m. Ages 30-39 = 107 mL/min/1.73 sq.m. Ages 40-49 = 99 mL/min/1.73 sq.m. Ages 50-59 = 93 mL/min/1.73 sq.m. Ages 60-69 = 85 mL/min/1.73 sq.m. Ages 70+ = 75 mL/min/1.73 sq.m. Chronic Kidney Disease: Less than 60 mL/min/1.73 square meters End Stage Renal Disease: Less than 15 mL/min/1.73 square meters Glucose [Mass/Vol] 100 mg/dL Normal 70 - 105 mg/dL AO ADM SS Hematocrit (Bld) [Volume fraction] 38.0 % Normal 37.0 - 47.0 % AO Workflow SS Hemoglobin (Bld) [Mass/Vol] 12.9 G/dL Normal 12.0 - 16.0 G/dL AO Workflow SS Lymphocyte, Absolute 1.8 103/mcL Normal 0.8 - 3 .9 10^3/mcL AO Workflow SS Lymphocytes/100 WBC (Bld) 17.9 % Normal 10.0 - 50.0 % AO Workflow SS MCH (RBC) [Entitic mass] 29.5 pg Normal 27.0 - 31.2 pg AO Workflow SS MCHC 33.9 G/dL Normal 33.0 - 37.0 G/dL AO Workflow SS MCV (RBC) [Entitic vol] 86.9 fL Normal 80.0 - 94.0 fL AO Workflow SS Monocyte, Absolute 0.7 103/mcL Normal 0.2 - 1.0 10^3/mcL AO Workflow SS Monocytes/100 WBC (Bld) 6.5 % Normal 1.7 - 13.0 % AO Workflow SS Neutrophil, Absolute 7.6 103/mcL High 2.9 - 6 .2 10^3/mcL AO Workflow SS Neutrophils/100 WBC (Bld) 73.1 % Normal 37.0 - 80.0 % AO Workflow SS Platelet mean volume (Bld) [Entitic vol] 8.1 fL Normal 7.4 - 10.4 fL AO Workflow SS Platelets (Bld) [#/Vol] 357 103/mcL Normal 130 - 400 10^3/mcL AO Workflow SS Potassium [Moles/Vol] 4.3 mmol/L Normal 3.5 - 5.1 mmol/L AO ADM SS RBC (Bld) [#/Vol] 4.38 106/mcL Normal 4.20 - 5.4 0 10^6/mcL AO Workflow SS Sodium [Moles/Vol] 140 mmol/L Normal 136 - 145 mmol/L AO ADM SS Urea nitrogen [Mass/Vol] 11 mg/dL Normal 7 - 18 mg/dL AO ADM SS Urea nitrogen/Creatinine [Mass ratio] 14 ratio Normal 7 - 27 ratio AO ADM SS WBC (Bld) [#/Vol] 10.3 103/mcL Normal 4.6 - 10.8 10^3/mcL AO Workflow SS MRI HIP W/O CONTRAST LEFTon 02-25-2024 MRI HIP W/O CONTRAST LEFT ORIGINAL EXAMINATION: MRI OF THE LEFT HIP WITHOUT CONTRAST 02/25/2024 9:58 am TECHNIQUE: Multiplanar multisequence MRI of the hip was performed without the administration of intravenous contrast. COMPARISON: Left hip radiographs 01/09/2024 HISTORY: ORDERING SYSTEM PROVIDED HISTORY: Reason for Exam: soft tissue injury FINDINGS: There is no bone marrow edema or acute fracture. The cartilage appears intact. There is no joint effusion and there are no bursal fluid collections. There is no evidence of labral tear. Muscle signal and volume is normal. There is no tendon tear. IMPRESSION: Unremarkable left hip. Interpreted by: Ty Marinelli Preliminary Report By: Ty Marinelli Electronically signed By Ty Marinelli Dictated Date: 02/25/2024 11:48:57 AM Prelim Date: 02/25/2024 11:52:34 AM Sign Date: 02/25/2024 11:52:34 AM Ordering Provider: DENIZ Freeman [facility] (MD) XR HIP 2-3 VIEWS LEFTon 12-23 XR HIP 2-3 VIEWS LEFT ORIGINAL EXAMINATION: 2 XRAY VIEWS OF THE LEFT HIP 01/09/2024 3:39 pm COMPARISON: None. HISTORY: ORDERING SYSTEM PROVIDED HISTORY: Reason for Exam: Soft tissue injury FINDINGS: The hip demonstrates normal alignment. No evidence of acute fracture. No focal osseus lesion. Pelvis is intact. IMPRESSION: No acute abnormality of the hip. Interpreted by: Kaiden Waters DO Preliminary Report By: Kaiden Waters DO Electronically signed By Kaiden Waters DO Dictated Date: 01/12/2024 9:20:21 AM Prelim Date: 01/12/2024 9:20:39 AM Sign Date: 01/12/2024 9:20:39 AM Ordering Provider: DENIZ Freeman [facility] (MD) Basic Metabolic Panelon 03-2 Anion gap [Moles/Vol] 9 mmol/L Normal 3-13 [facility] Comment on above: Performed By: #### H RAFFI BMP3M #### [place] [address] [place] [address] Calcium [Mass/Vol] 9.6 mg/dL Normal 8.4-10.4 [facility] Comment on above: Performed By: #### H RAFFI BMP3M #### [facility] [address] [place] [address] CO2 [Moles/Vol] 25 mmol/L Normal 22-30 [facility] Comment on above: Performed By: #### H RAFFI BMP3M #### [place] [address] [place] [address] Glucose [Mass/Vol] 103 mg/dL High 70-100 [facility] Comment on above: Performed By: #### H RAFFI BMP3M #### [facility] [address] [place] [address] Urea nitrogen [Mass/Vol] 14 mg/dL Normal 7-20 [facility] Comment on above: Performed By: #### H RAFFI BMP3M #### [facility] [address] [place] [address] Creatinine [Mass/Vol] 0.70 mg/dL Normal 0.52-1.25 [facility] Comment on above: Performed By: #### H RAFFI BMP3M #### [place] [address] [place] [address] GFR/1.73 sq M predicted among blacks MDRD (S/P/Bld) [Vol rate/Area] mL/min/{1.73_m2} Normal >60 [facility] Comment on above: Performed By: #### H RAFFI BMP3M #### [facility] [address] [place] [address] GFR/1.73 sq M predicted among non-blacks MDRD (S/P/Bld) [Vol rate/Area] mL/min/{1.73_m2} Normal >60 [facility] Comment on above: Result Comment: KDIG O guidelines provide the following GFR categories: Stage GFR(ml/min/1.73 m2) Terms G1 >=90 Normal or high G2 60-89 Mildly decreased* G3a 45-59 Mildly to moderately decreased G3b 30-44 Moderately to severely decreased G4 15-29 Severely decreased G5 <15 Kidney failure *Relative to young adult level. In the absence of evidence of kidney damage, neither GFR category G1 nor G2 fulfill the criteria for CKD. The CKD-EPI equation is validated in individuals 18 years of age and older. Currently the best equation for estimating glomerular filtration rate (GFR) from serum creatinine in children is the Bedside López equation. It is less accurate in patients with extremes of muscle mass, restriction of dietary protein, ingestion of creatine, extra-renal metabolism of creatinine, or treatment with medications that affect renal tubular creatinine secretion. Performed By: #### H RAFFI BMP3M #### [facility] [address] [place], [place] Potassium [Moles/Vol] 4.1 mmol/L Normal 3.5-5.1 [facility] Comment on above: Performed By: #### H RAFFI BMP3M #### [facility] [address] [place], [place] Chloride [Moles/Vol] 102 mmol/L Normal 98-107 [facility] Comment on above: Performed By: #### H RAFFI BMP3M #### [place] [address] [address] [place], [place] Sodium [Moles/Vol] 136 mmol/L Normal 135-145 [facility] Comment on above: Performed By: #### H EMD, BMP3M #### [facility] [address] [place] [address] Basic Metabolic Panel w/ Ref casey to MGon 12-16-2020 Anion gap [Moles/Vol] 9 mmol/L 3 - 13 mmol/L [employer] Work Phone: Calcium [Mass/Vol] 9.6 mg/dL 8.4 - 10. 4 mg/dL [facility] Work Phone: Chloride [Moles/Vol] 102 mmol/L 98 - 10 7 mmol/L [facility] Work Phone: CO2 [Moles/Vol] 25 mmol/L 22 - 30 mmol/L [facility] Work Phone: Creatinine [Mass/Vol] 0.7 mg/dL 0.52 - 1.25 mg/dL [employer] Work Phone: EGFR IF NonAfrican Greenlandic >90.0 >60 mL/min [facility] Work Phone: Comment on above: KDIGO guidelines pro vide the following GFR categories: Stage GFR(ml/min/1.73 m2) Terms G1 >=90 Normal or high G2 60-89 Mildly decreased* G3a 45-59 Mildly to moderately decreased G3b 30-44 Moderately to severely decreased G4 15-29 Severely decreased G5 <15 Kidney failure *Relative to young adult level. In the absence of evidence of kidney damage, neither GFR category G1 nor G2 fulfill the criteria for CKD. The CKD-EPI equation is validated in individuals 18 years of age and older. Currently the best equation for estimating glomerular filtration rate (GFR) from serum creatinine in children is the Bedside López equation. It is less accurate in patients with extremes of muscle mass, restriction of dietary protein, ingestion of creatine, extra-renal metabolism of creatinine, or treatment with medications that affect renal tubular creatinine secretion. GFR/1.73 sq M predicted among blacks MDRD (S/P/Bld) [Vol rate/Area] mL/min/{1.73_m2} >60 mL/min [facility] Work Phone: Glucose [Mass/Vol] 103 mg/dL High 70 - 100 mg/dL [facility] Work Phone: Interpretation and review of laboratory results Abnormal [employer] Work Phone: Potassium [Moles/Vol] 4.1 mmol/L 3.5 - 5.1 mmol/L [employer] Work Phone: Sodium [Moles/Vol] 136 mmol/L 135 - 145 mmol/L [employer] Work Phone: Urea nitrogen [Mass/Vol] 14 mg/dL 7 - 20 mg/dL [employer] Work Phone: Test Performed by [employer], [address] [place] [address] [facility] Work Phone: CBC auto differentialon 11-22 Absolute Baso # 0.1 10*3/uL 0.0 - 0.2 10*3/uL [facility] Work Phone: Absolute Neut # 7.0 10*3/uL 1.8 - 7.0 10*3/uL [employer] Work Phone: Basophils/100 WBC (Bld) 0.8 % 0.0 - 2.0 % [facility] Work Phone: Eosinophils (Bld) [#/Vol] 0.3 10*3/uL 0.0 - 0.5 10*3/uL [employer] Work Phone: Eosinophils/100 WBC (Bld) 2.2 % 1.0 - 6.0 % [facility] Work Phone: Erythrocyte distribution width (RBC) [Ratio] 13.7 % 11.5 - 14.5 % [employer] Work Phone: Granulocytes/100 WBC (Bld) 61.5 % 40.0 - 80.0 % [employer] Work Phone: Hematocrit (Bld) [Volume fraction] 40.1 % 35.0 - 47.0 % [employer] Work Phone: Hemoglobin (Bld) [Mass/Vol] 13.6 g/dL 11.7 - 16.0 g/dL [employer] Work Phone: Interpretation and review of laboratory results Abnormal [employer] Work Phone: Lymphocytes (Bld) [#/Vol] 3.2 10*3/uL 1.0 - 4.3 10*3/uL [employer] Work Phone: Lymphocytes/100 WBC (Bld) 28.2 % 20.0 - 40.0 % [employer] Work Phone: MCH (RBC) [Entitic mass] 29.3 pg 26.0 - 34.0 pg [employer] Work Phone: MCHC (RBC) [Mass/Vol] 33.8 % 32.0 - 36.0 % [employer] Work Phone: MCV (RBC) [Entitic vol] 86.8 fL 79.0 - 98.0 fL [employer] Work Phone: Monocytes (Bld) [#/Vol] 0.8 10*3/uL 0.0 - 0.8 10*3/uL [employer] Work Phone: Monocytes/100 WBC (Bld) 7.3 % 2.0 - 10.0 % [employer] Work Phone: Platelet mean volume (Bld) [Entitic vol] 7.7 fL 7.4 - 10.4 fL [employer] Phone: Platelets (Bld) [#/Vol] 298 10*3/uL 140 - 440 10*3/uL [employer] Work Phone: RBC (Bld) [#/Vol] 4.62 10*6/uL 3.80 - 5.2 0 10*6/uL [employer] Work Phone: WBC (Bld) [#/Vol] 11.4 10*3/uL High 3.6 - 10.7 10*3/uL [employer] Work Phone: Test Performed by [employer], [address] [place] [address] [employer] Work Phone: Hemogram w/ Autodiffon 12-16 Abs Baso Cnt 0.1 10*3/uL Normal 0.0-0.2 [facility] Comment on above: Performed By: #### H EMDF BMP3M #### [place] [address] [address] [place], [place] Abs Neutrophile Cnt 7.0 10*3/uL Normal 1.8-7.0 [facility] Comment on above: Performed By: #### H EMDF BMP3M #### [place] [address] [place], [place] Basophils/100 WBC (Bld) 0.8 % Normal 0.0-2.0 [facility] Comment on above: Performed By: #### H EMDF BMP3M #### [place] [address] [place], [place] Eosinophils (Bld) [#/Vol] 0.3 10*3/uL Normal 0.0-0.5 [facility] Comment on above: Performed By: #### H EMDF BMP3M #### [place] [address] [place], [place] Eosinophils/100 WBC (Bld) 2.2 % Normal 1.0-6.0 [facility] Comment on above: Performed By: #### H EMDF BMP3M #### [address] Erythrocyte distribution width (RBC) [Ratio] 13.7 % Normal 11.5-14.5 [facility] Comment on above: Performed By: #### H EMDF BMP3M #### [place] [address] [place], [place] Granulocytes/100 WBC (Bld) 61.5 % Normal 40.0-80.0 [facility] Comment on above: Performed By: #### H EMDF BMP3M #### [address] Hematocrit (Bld) [Volume fraction] 40.1 % Normal 35.0-47.0 [facility] Comment on above: Performed By: #### H EMDF BMP3M #### [address] Hemoglobin (Bld) [Mass/Vol] 13.6 g/dL Normal 11.7-16.0 [facility] Comment on above: Performed By: #### Marissa NUGENT BMP3M #### [place] [address] [address] [place], [place] Lymphocytes (Bld) [#/Vol] 3.2 10*3/uL Normal 1.0-4.3 [facility] Comment on above: Performed By: #### Marissa NUGENT BMP3M #### [place] [address] [address] [place], [place] Lymphocytes/100 WBC (Bld) 28.2 % Normal 20.0-40.0 [facility] Comment on above: Performed By: #### Marissa NUGENT BMP3M #### [place] [address] [address] [place], [place] MCH (RBC) [Entitic mass] 29.3 pg Normal 26.0-34.0 [facility] Comment on above: Performed By: #### Marissa NUGENT BMP3M #### [place] [address] [address] [place], [place] MCHC (RBC) [Mass/Vol] 33.8 % Normal 32.0-36.0 [facility] Comment on above: Performed By: #### Marissa NUGENT BMP3M #### [place] [address] [address] [place], [place] MCV (RBC) [Entitic vol] 86.8 fL Normal 79.0-98.0 [facility] Comment on above: Performed By: #### Marissa NUGENT BMP3M #### [place] [address] [address] [place], [place] Monocytes (Bld) [#/Vol] 0.8 10*3/uL Normal 0.0-0.8 [facility] Comment on above: Performed By: #### Marissa NUGENT BMP3M #### [place] [address] [address] [place], [place] Monocytes/100 WBC (Bld) 7.3 % Normal 2.0-10.0 [facility] Comment on above: Performed By: #### H RAFFI BMP3M #### [facility] [address], [place] Platelet mean volume (Bld) [Entitic vol] 7.7 fL Normal 7.4-10.4 [facility] Comment on above: Performed By: #### H RAFFI BMP3M #### [facility] [address] [place], [place] Platelets (Bld) [#/Vol] 298 10*3/uL Normal 140-440 [facility] Comment on above: Performed By: #### H RAFFI BMP3M #### [place] [address] [address] [place], [place] RBC (Bld) [#/Vol] 4.62 10*6/uL Normal 3.80-5.20 [facility] Comment on above: Performed By: #### H RAFFI BMP3M #### [place] [address] [address] [place], [place] WBC (Bld) [#/Vol] 11.4 10*3/uL High 3.6-10.7 [facility] Comment on above: Performed By: #### Marissa NUGENT BMP3M #### [place] [address] [address] [place], [place] Basic Metabolic Panelon 03-2 Anion gap [Moles/Vol] 10 mmol/L Normal 3-13 [facility] Comment on above: Performed By: #### B MP3Yvrose HEMDF #### [place] [address] [address] [place], [place] Calcium [Mass/Vol] 9.4 mg/dL Normal 8.4-10.4 [facility] Comment on above: Performed By: #### B MP3Yvrose, HEMDF #### [place] [address] [address] [place], [place] CO2 [Moles/Vol] 23 mmol/L Normal 22-30 [facility] Comment on above: Performed By: #### B MP3M, HEMDF #### [place] [address] [place] [address] Glucose [Mass/Vol] 90 mg/dL Normal 70-100 [facility] Comment on above: Performed By: #### B MP3M, HEMDF #### [facility] [address] [place] [address] Urea nitrogen [Mass/Vol] 12 mg/dL Normal 7-20 [facility] Comment on above: Performed By: #### B MP3M, HEMDF #### [facility] [address] [place] [address] Creatinine [Mass/Vol] 0.67 mg/dL Normal 0.52-1.25 [facility] Comment on above: Performed By: #### B MP3M, HEMDF #### [place] [address] [place] [address] GFR/1.73 sq M predicted among blacks MDRD (S/P/Bld) [Vol rate/Area] mL/min/{1.73_m2} Normal >60 [facility] Comment on above: Performed By: #### B MP3M, HEMDF #### [facility] [address] [place] [address] GFR/1.73 sq M predicted among non-blacks MDRD (S/P/Bld) [Vol rate/Area] mL/min/{1.73_m2} Normal >60 [facility] Comment on above: Result Comment: KDIG O guidelines provide the following GFR categories: Stage GFR(ml/min/1.73 m2) Terms G1 >=90 Normal or high G2 60-89 Mildly decreased* G3a 45-59 Mildly to moderately decreased G3b 30-44 Moderately to severely decreased G4 15-29 Severely decreased G5 <15 Kidney failure *Relative to young adult level. In the absence of evidence of kidney damage, neither GFR category G1 nor G2 fulfill the criteria for CKD. The CKD-EPI equation is validated in individuals 18 years of age and older. Currently the best equation for estimating glomerular filtration rate (GFR) from serum creatinine in children is the Bedside López equation. It is less accurate in patients with extremes of muscle mass, restriction of dietary protein, ingestion of creatine, extra-renal metabolism of creatinine, or treatment with medications that affect renal tubular creatinine secretion. Performed By: #### B MP3M, HEMDF #### [facility] [address] [place] [address] Potassium [Moles/Vol] 4.3 mmol/L Normal 3.5-5.1 [facility] Comment on above: Performed By: #### B MP3M, HEMDF #### [facility] [address] [place] [address] Chloride [Moles/Vol] 106 mmol/L Normal 98-107 [facility] Comment on above: Performed By: #### B MP3M, HEMDF #### [facility] [facility] [address] [place] [address] Sodium [Moles/Vol] 139 mmol/L Normal 135-145 [facility] Comment on above: Performed By: #### B MP3M, HEMDF #### [facility] [address] [place] [address] Basic Metabolic Panel w/ Ref casey to MGon 12-15-2020 Anion gap [Moles/Vol] 10 mmol/L 3 - 13 mmol/L [facility] Work Phone: Calcium [Mass/Vol] 9.4 mg/dL 8.4 - 10. 4 mg/dL [facility] Work Phone: Chloride [Moles/Vol] 106 mmol/L 98 - 10 7 mmol/L [facility] Work Phone: CO2 [Moles/Vol] 23 mmol/L 22 - 30 mmol/L [facility] Work Phone: Creatinine [Mass/Vol] 0.67 mg/dL 0.52 - 1.25 mg/dL [facility] Work Phone: EGFR IF NonAfrican Greenlandic >90.0 >60 mL/min [facility] Work Phone: Comment on above: KDIGO guidelines pro vide the following GFR categories: Stage GFR(ml/min/1.73 m2) Terms G1 >=90 Normal or high G2 60-89 Mildly decreased* G3a 45-59 Mildly to moderately decreased G3b 30-44 Moderately to severely decreased G4 15-29 Severely decreased G5 <15 Kidney failure *Relative to young adult level. In the absence of evidence of kidney damage, neither GFR category G1 nor G2 fulfill the criteria for CKD. The CKD-EPI equation is validated in individuals 18 years of age and older. Currently the best equation for estimating glomerular filtration rate (GFR) from serum creatinine in children is the Bedside López equation. It is less accurate in patients with extremes of muscle mass, restriction of dietary protein, ingestion of creatine, extra-renal metabolism of creatinine, or treatment with medications that affect renal tubular creatinine secretion. GFR/1.73 sq M predicted among blacks MDRD (S/P/Bld) [Vol rate/Area] mL/min/{1.73_m2} >60 mL/min [employer] Work Phone: Glucose [Mass/Vol] 90 mg/dL 70 - 100 mg/dL [employer] Work Phone: Potassium [Moles/Vol] 4.3 mmol/L 3.5 - 5.1 mmol/L [employer] Work Phone: Sodium [Moles/Vol] 139 mmol/L 135 - 145 mmol/L [employer] Work Phone: Urea nitrogen [Mass/Vol] 12 mg/dL 7 - 20 mg/dL [employer] Work Phone: Test Performed by [employer], [address] [place] [address] [employer] Work Phone: CBC auto differentialon 03-2 Absolute Baso # 0.1 10*3/uL 0.0 - 0.2 10*3/uL [employer] Work Phone: Absolute Neut # 7.3 10*3/uL High 1.8 - 7.0 10*3/uL [employer] Work Phone: Basophils/100 WBC (Bld) 0.5 % 0.0 - 2.0 % [employer] Work Phone: Eosinophils (Bld) [#/Vol] 0.1 10*3/uL 0.0 - 0.5 10*3/uL [employer] Work Phone: Eosinophils/100 WBC (Bld) 0.9 % Low 1.0 - 6.0 % [employer] Work Phone: Erythrocyte distribution width (RBC) [Ratio] 14.0 % 11.5 - 14.5 % [employer] Work Phone: Granulocytes/100 WBC (Bld) 66.2 % 40.0 - 80.0 % [employer] Work Phone: Hematocrit (Bld) [Volume fraction] 42.9 % 35.0 - 47.0 % [employer] Work Phone: Hemoglobin (Bld) [Mass/Vol] 14.2 g/dL 11.7 - 16.0 g/dL [employer] Work Phone: Interpretation and review of laboratory results Abnormal [employer] Work Phone: Lymphocytes (Bld) [#/Vol] 2.7 10*3/uL 1.0 - 4.3 10*3/uL [employer] Work Phone: Lymphocytes/100 WBC (Bld) 24.6 % 20.0 - 40.0 % [employer] Work Phone: MCH (RBC) [Entitic mass] 29.2 pg 26.0 - 34.0 pg [employer] Work Phone: MCHC (RBC) [Mass/Vol] 33.2 % 32.0 - 36.0 % [employer] Work Phone: MCV (RBC) [Entitic vol] 88.0 fL 79.0 - 98.0 fL [employer] Work Phone: Monocytes (Bld) [#/Vol] 0.9 10*3/uL High 0.0 - 0.8 10*3/uL [employer] Work Phone: Monocytes/100 WBC (Bld) 7.8 % 2.0 - 10.0 % [employer] Work Phone: Platelet mean volume (Bld) [Entitic vol] 7.8 fL 7.4 - 10.4 fL [employer] Work Phone: Platelets (Bld) [#/Vol] 253 10*3/uL 140 - 440 10*3/uL [employer] Work Phone: RBC (Bld) [#/Vol] 4.88 10*6/uL 3.80 - 5.2 0 10*6/uL [employer] Work Phone: WBC (Bld) [#/Vol] 11.0 10*3/uL High 3.6 - 10.7 10*3/uL [employer] Work Phone: Test Performed by [employer], [place] [address] [employer] Work Phone: Hemogram w/ Autodiffon 12-15 Abs Baso Cnt 0.1 10*3/uL Normal 0.0-0.2 [facility] Comment on above: Performed By: #### B MP3M, HEMDF #### [employer] [facility] [place] [address] Abs Neutrophile Cnt 7.3 10*3/uL High 1.8-7.0 [facility] [employer] Comment on above: Performed By: #### B MP3M, HEMDF #### [employer] [facility] [place] [address] Basophils/100 WBC (Bld) 0.5 % Normal 0.0-2.0 [facility] [employer] Comment on above: Performed By: #### B MP3M, HEMDF #### [employer] [address] [place] [phone] Eosinophils (Bld) [#/Vol] 0.1 10*3/uL Normal 0.0-0.5 [facility] [employer] Comment on above: Performed By: #### B MP3M, HEMDF #### [employer] [facility] [place] [address] Eosinophils/100 WBC (Bld) 0.9 % Low 1.0-6.0 [facility] [employer] Comment on above: Performed By: #### B MP3M, HEMDF #### [employer] [address] [place] [phone] Erythrocyte distribution width (RBC) [Ratio] 14.0 % Normal 11.5-14.5 [facility] [employer] Comment on above: Performed By: #### B MP3M, HEMDF #### [facility] [address] [place], [place] Granulocytes/100 WBC (Bld) 66.2 % Normal 40.0-80.0 [facility] Comment on above: Performed By: #### B MP3M, HEMDF #### [facility] [address] [place], [place] Hematocrit (Bld) [Volume fraction] 42.9 % Normal 35.0-47.0 [facility] Comment on above: Performed By: #### B MP3M, HEMDF #### [facility] [address] [place], [place] Hemoglobin (Bld) [Mass/Vol] 14.2 g/dL Normal 11.7-16.0 [facility] Comment on above: Performed By: #### B MP3M, HEMDF #### [place] [address] [address] [place], [place] Lymphocytes (Bld) [#/Vol] 2.7 10*3/uL Normal 1.0-4.3 [facility] Comment on above: Performed By: #### B MP3M, HEMDF #### [place] [address] [address] [place], [place] Lymphocytes/100 WBC (Bld) 24.6 % Normal 20.0-40.0 [facility] Comment on above: Performed By: #### B MP3M, HEMDF #### [facility] [address] [place], [place] MCH (RBC) [Entitic mass] 29.2 pg Normal 26.0-34.0 [facility] Comment on above: Performed By: #### B MP3M, HEMDF #### [facility] [address] [place], [place] MCHC (RBC) [Mass/Vol] 33.2 % Normal 32.0-36.0 [facility] Comment on above: Performed By: #### B MP3M, HEMDF #### [facility] [address] [place], [place] MCV (RBC) [Entitic vol] 88.0 fL Normal 79.0-98.0 [facility] Comment on above: Performed By: #### B MP3M, HEMDF #### [facility] [address] [place], [place] Monocytes (Bld) [#/Vol] 0.9 10*3/uL High 0.0-0.8 [facility] Comment on above: Performed By: #### B MP3M, HEMDF #### [place] [address] [place] [place], [place] Monocytes/100 WBC (Bld) 7.8 % Normal 2.0-10.0 [facility] Comment on above: Performed By: #### B MP3M, HEMDF #### [place] [address] [address] [place], [place] Platelet mean volume (Bld) [Entitic vol] 7.8 fL Normal 7.4-10.4 [facility] Comment on above: Performed By: #### B MP3M, HEMDF #### [place] [address] [place] [place], [place] Platelets (Bld) [#/Vol] 253 10*3/uL Normal 140-440 [facility] Comment on above: Performed By: #### B MP3M, HEMDF #### [place] [address] [place] [place], [place] RBC (Bld) [#/Vol] 4.88 10*6/uL Normal 3.80-5.20 [facility] Comment on above: Performed By: #### B MP3M, HEMDF #### [place] [address] [place], [place] WBC (Bld) [#/Vol] 11.0 10*3/uL High 3.6-10.7 [facility] Comment on above: Performed By: #### B MP3M, HEMDF #### [place] [address] [address] [place], [place] Surgical Pathologyon 021 Sodium [Moles/Vol] SEE BELOW [facility] Work Phone: [phone] [facility] PATHOLOGY AND LABORATORY MEDICINE [address] [place] [address] [place] [id number] FINAL SURGICAL PATHOLOGY REPORT NAME: JANETTE VILLEGAS I : 1980 40 Y F BILLING NO.: [id number] LOCATION: [address] [place] [address] PROCEDURE 12/13/2020 DATE: SURGEON: JULI CANTOR M.D. RECEIVED 12/14/2020 DATE: ATTENDING: JULI CANTOR M.D. REPORT DATE: 12/15/2020 COPIES TO: DIAGNOSIS: A. ANTERIOR SCALENE MUSCLE, EXCISION - SKELETAL MUSCULAR TISSUE WITH NO SIGNIFICANT PATHOLOGIC CHANGES B. RIGHT FIRST RIB, EXCISION - GROSSLY UNREMARKABLE RIB BONE. SKELETAL MUSCULAR TISSUE WITH NO SIGNIFICANT PATHOLOGIC CHANGES SMT/SMT Signature> S DAHLIA DE LA O M.D. CLINICAL INFORMATION: Right thoracic outlet syndrome SPECIMEN: (A) TISSUE NOS (B) RIB(S) GROSS DESCRIPTION: A. Received in formalin labeled anterior scalene muscle is an irregular, shaggy, red-brown, fibromuscular tissue segment measuring 3.5 x 2 x 2 cm. Cut surfaces are grossly unremarkable. A random section is submitted in a single cassette. B. Received in formalin labeled right first rib is a curved, flat portion of bone consistent with rib measuring 4 x 1.5 x 0.5 cm. There is adherent fibromuscular tissue present. Bone is grossly unremarkable. Random sections of fibromuscular tissue are submitted in a single cassette. JCK/JAF Disclaimer: The following statement applies to all immunohistochemistry, in situ hybridization, molecular studies, and immunofluorescence testing. The use of one or more reagents in the above tests is regulated as an analyte specific reagent (ASR). These tests were developed and their performance characteristics determined by the clinical laboratories of [facility]. They have not been cleared by the [place] Food and Drug Administration (FDA). The FDA has determined that such clearance or approval is not necessary. All the above immunostains were performed on paraffin embedded tissue. Appropriate positive and negative controls (where applicable) were run in parallel with the patient's specimen; these controls showed expected staining pattern, with acceptable intensity of staining. Immunohistochemical assays have not been validated on decalcified tissues. Results should be interpreted with caution given the raised possibility of false negativity on decalcified specimens. Professional Performing Location: [place] [address]. DEPARTMENT OF PATHOLOGY AND LABORATORY MEDICINE [place], [place] [address] [facility] Work Phone: Basic Metabolic Panelon - Anion gap [Moles/Vol] 9 mmol/L Normal 3-13 [facility] Comment on above: Performed By: #### H EMDCordell BMP3M #### [address] [address] Calcium [Mass/Vol] 8.8 mg/dL Normal 8.4-10.4 [facility] Comment on above: Performed By: #### H RAFFI BMP3M #### [address] [address] CO2 [Moles/Vol] 20 mmol/L Low 22-30 [facility] Comment on above: Performed By: #### H RAFFI BMP3M #### [facility] [address] [place] [address] Creatinine [Mass/Vol] 0.58 mg/dL Normal 0.52-1.25 [facility] Comment on above: Performed By: #### H RAFFI BMP3M #### [facility] [address] [place] [address] GFR/1.73 sq M predicted among blacks MDRD (S/P/Bld) [Vol rate/Area] mL/min/{1.73_m2} Normal >60 [facility] Comment on above: Performed By: #### H RAFFI BMP3M #### [facility] [address] [place] [address] GFR/1.73 sq M predicted among non-blacks MDRD (S/P/Bld) [Vol rate/Area] mL/min/{1.73_m2} Normal >60 [facility] Comment on above: Result Comment: KDIG O guidelines provide the following GFR categories: Stage GFR(ml/min/1.73 m2) Terms G1 >=90 Normal or high G2 60-89 Mildly decreased* G3a 45-59 Mildly to moderately decreased G3b 30-44 Moderately to severely decreased G4 15-29 Severely decreased G5 <15 Kidney failure *Relative to young adult level. In the absence of evidence of kidney damage, neither GFR category G1 nor G2 fulfill the criteria for CKD. The CKD-EPI equation is validated in individuals 18 years of age and older. Currently the best equation for estimating glomerular filtration rate (GFR) from serum creatinine in children is the Bedside López equation. It is less accurate in patients with extremes of muscle mass, restriction of dietary protein, ingestion of creatine, extra-renal metabolism of creatinine, or treatment with medications that affect renal tubular creatinine secretion. Performed By: #### H RAFFI BMP3M #### [facility] [address] [place], [place] Glucose [Mass/Vol] 152 mg/dL High 70-100 [facility] Comment on above: Performed By: #### H RAFFI BMP3M #### [facility] [address] [place], [place] Urea nitrogen [Mass/Vol] 8 mg/dL Normal 7-20 [facility] Comment on above: Performed By: #### H RAFFI BMP3M #### [facility] [address] [place], [place] Chloride [Moles/Vol] 106 mmol/L Normal 98-107 [facility] Comment on above: Performed By: #### H RAFFI BMP3M #### [facility] [facility] [address] [place], [place] Potassium [Moles/Vol] 4.8 mmol/L Normal 3.5-5.1 [facility] Comment on above: Performed By: #### H RAFFI BMP3M #### [facility] [address] [place], [place] Sodium [Moles/Vol] 135 mmol/L Normal 135-145 [facility] Comment on above: Performed By: #### H RAFFI BMP3M #### [facility] [address] [place], [place] Basic Metabolic Panel w/ Ref casey to MGon 12-14-2020 Anion gap [Moles/Vol] 9 mmol/L 3 - 13 mmol/L [facility] Work Phone: Calcium [Mass/Vol] 8.8 mg/dL 8.4 - 10. 4 mg/dL [facility] Work Phone: Chloride [Moles/Vol] 106 mmol/L 98 - 10 7 mmol/L [facility] Work Phone: CO2 [Moles/Vol] 20 mmol/L Low 22 - 30 mmol/L [facility] Work Phone: Creatinine [Mass/Vol] 0.58 mg/dL 0.52 - 1.25 mg/dL [facility] Work Phone: EGFR IF NonAfrican Greenlandic >90.0 >60 mL/min [facility] Work Phone: Comment on above: KDIGO guidelines pro vide the following GFR categories: Stage GFR(ml/min/1.73 m2) Terms G1 >=90 Normal or high G2 60-89 Mildly decreased* G3a 45-59 Mildly to moderately decreased G3b 30-44 Moderately to severely decreased G4 15-29 Severely decreased G5 <15 Kidney failure *Relative to young adult level. In the absence of evidence of kidney damage, neither GFR category G1 nor G2 fulfill the criteria for CKD. The CKD-EPI equation is validated in individuals 18 years of age and older. Currently the best equation for estimating glomerular filtration rate (GFR) from serum creatinine in children is the Bedside López equation. It is less accurate in patients with extremes of muscle mass, restriction of dietary protein, ingestion of creatine, extra-renal metabolism of creatinine, or treatment with medications that affect renal tubular creatinine secretion. GFR/1.73 sq M predicted among blacks MDRD (S/P/Bld) [Vol rate/Area] mL/min/{1.73_m2} >60 mL/min [employer] Work Phone: Glucose [Mass/Vol] 152 mg/dL High 70 - 100 mg/dL [employer] Work Phone: Interpretation and review of laboratory results Abnormal [employer] Work Phone: Potassium [Moles/Vol] 4.8 mmol/L 3.5 - 5.1 mmol/L [employer] Work Phone: Sodium [Moles/Vol] 135 mmol/L 135 - 145 mmol/L [employer] Work Phone: Urea nitrogen [Mass/Vol] 8 mg/dL 7 - 20 mg/dL [employer] Work Phone: Test Performed by [employer], [address] [place] [address] [employer] Work Phone: CBC auto differentialon 11-22 Absolute Baso # 0.0 10*3/uL 0.0 - 0.2 10*3/uL [employer] Work Phone: Absolute Neut # 10.2 10*3/uL High 1.8 - 7.0 10*3/uL [employer] Work Phone: Basophils/100 WBC (Bld) 0.1 % 0.0 - 2.0 % [employer] Work Phone: Eosinophils (Bld) [#/Vol] 0.0 10*3/uL 0.0 - 0.5 10*3/uL [facility] Work Phone: Eosinophils/100 WBC (Bld) 0.0 % Low 1.0 - 6.0 % [employer] Work Phone: Erythrocyte distribution width (RBC) [Ratio] 13.6 % 11.5 - 14.5 % [employer] Work Phone: Granulocytes/100 WBC (Bld) 91.1 % High 40.0 - 80.0 % [employer] Work Phone: Hematocrit (Bld) [Volume fraction] 36.9 % 35.0 - 47.0 % [employer] Work Phone: Hemoglobin (Bld) [Mass/Vol] 12.2 g/dL 11.7 - 16.0 g/dL [employer] Work Phone: Interpretation and review of laboratory results Abnormal [employer] Work Phone: Lymphocytes (Bld) [#/Vol] 0.5 10*3/uL Low 1.0 - 4.3 10*3/uL [employer] Work Phone: Lymphocytes/100 WBC (Bld) 4.1 % Low 20.0 - 40.0 % [employer] Phone: MCH (RBC) [Entitic mass] 28.8 pg 26.0 - 34.0 pg [employer] Work Phone: MCHC (RBC) [Mass/Vol] 33.1 % 32.0 - 36.0 % [employer] Work Phone: MCV (RBC) [Entitic vol] 87.2 fL 79.0 - 98.0 fL [employer] Work Phone: Monocytes (Bld) [#/Vol] 0.5 10*3/uL 0.0 - 0.8 10*3/uL [employer] Work Phone: Monocytes/100 WBC (Bld) 4.7 % 2.0 - 10.0 % [employer] Work Phone: Platelet mean volume (Bld) [Entitic vol] 7.6 fL 7.4 - 10.4 fL [employer] Work Phone: Platelets (Bld) [#/Vol] 250 10*3/uL 140 - 440 10*3/uL [employer] Work Phone: RBC (Bld) [#/Vol] 4.23 10*6/uL 3.80 - 5.2 0 10*6/uL [employer] Work Phone: WBC (Bld) [#/Vol] 11.2 10*3/uL High 3.6 - 10.7 10*3/uL [employer] Work Phone: Hemogram w/ Autodiffon 12-14 Abs Baso Cnt 0.0 10*3/uL Normal 0.0-0.2 [facility] Comment on above: Performed By: #### H EMDF BMP3M #### [facility] [address] [place] [address] Abs Neutrophile Cnt 10.2 10*3/uL High 1.8-7.0 [facility] Comment on above: Performed By: #### H EMDF, BMP3M #### [facility] [address] [place] [address] Basophils/100 WBC (Bld) 0.1 % Normal 0.0-2.0 [facility] Comment on above: Performed By: #### H EMDF, BMP3M #### [facility] [address] [place] [address] Eosinophils (Bld) [#/Vol] 0.0 10*3/uL Normal 0.0-0.5 [facility] Comment on above: Performed By: #### H EMDF, BMP3M #### [facility] [employer] [facility] [address] [place] [address] Eosinophils/100 WBC (Bld) 0.0 % Low 1.0-6.0 [facility] Comment on above: Performed By: #### H EMDF, BMP3M #### [facility] [address] [place] [address] Erythrocyte distribution width (RBC) [Ratio] 13.6 % Normal 11.5-14.5 [facility] Comment on above: Performed By: #### H EMDF BMP3M #### [place] [address], [place] Granulocytes/100 WBC (Bld) 91.1 % High 40.0-80.0 [facility] Comment on above: Performed By: #### H EMDF BMP3M #### [place] [address], [place] Hematocrit (Bld) [Volume fraction] 36.9 % Normal 35.0-47.0 [facility] Comment on above: Performed By: #### H EMDF BMP3M #### [place] [address] [place], [place] Hemoglobin (Bld) [Mass/Vol] 12.2 g/dL Normal 11.7-16.0 [facility] Comment on above: Performed By: #### H EMDF BMP3M #### [place] [address] [place], [place] Lymphocytes (Bld) [#/Vol] 0.5 10*3/uL Low 1.0-4.3 [facility] Comment on above: Performed By: #### H EMDF BMP3M #### [place] [address] [place], [place] Lymphocytes/100 WBC (Bld) 4.1 % Low 20.0-40.0 [facility] Comment on above: Performed By: #### H EMDF BMP3M #### [place] [address], [place] MCH (RBC) [Entitic mass] 28.8 pg Normal 26.0-34.0 [facility] Comment on above: Performed By: #### H EMDF BMP3M #### [address] MCHC (RBC) [Mass/Vol] 33.1 % Normal 32.0-36.0 [facility] Comment on above: Performed By: #### H EMDF BMP3M #### [place] [address] [place], [place] MCV (RBC) [Entitic vol] 87.2 fL Normal 79.0-98.0 [facility] Comment on above: Performed By: #### JUNG WARNER3M #### [address] Monocytes (Bld) [#/Vol] 0.5 10*3/uL Normal 0.0-0.8 [facility] Comment on above: Performed By: #### Marissa NUGENT BMP3M #### [facility] [employer] [place] [address] [place], [place] Monocytes/100 WBC (Bld) 4.7 % Normal 2.0-10.0 [facility] Comment on above: Performed By: #### Marissa NUGENT BMP3M #### [address] Platelet mean volume (Bld) [Entitic vol] 7.6 fL Normal 7.4-10.4 [facility] Comment on above: Performed By: #### Marissa NUGENT BMP3M #### [facility] [employer] [address] Platelets (Bld) [#/Vol] 250 10*3/uL Normal 140-440 [facility] Comment on above: Performed By: #### Marissa NUGENT BMP3M #### [address] RBC (Bld) [#/Vol] 4.23 10*6/uL Normal 3.80-5.20 [facility] Comment on above: Performed By: #### H RAFFI BMP3M #### [facility] [employer] [address] WBC (Bld) [#/Vol] 11.2 10*3/uL High 3.6-10.7 [facility] Comment on above: Performed By: #### H RAFFI BMP3M #### [address] Otheron 12-14-2020 [facility], [address] [place] [address] [facility] Work Phone: CR Chest Portableon 12-14-19 21 CR Chest Portable Patient Name: JANETTE VILLEGAS I Diagnostic Radiology ACCESSION EXAM DATE/TIME PROCEDURE ORDERING PROVIDER [id number] 12/13/2020 16:47 EDT CR Chest Portable MD FERRER ANDREW CPT code 46689 Reason For Exam (CR Chest Portable) assessment for right pneumothorax, diaphragm paralysis of pleural effusion Report CLINICAL INFORMATION: Chest pain. Portable view of the chest at 1610 hours is provided without comparison. FINDINGS: The cardiac silhouette and mediastinum are within normal limits. The lungs are free of infiltrate or pleural effusion. There is no pneumothorax. The patient is status post right upper thoracic surgery (resection of the 1st rib). IMPRESSION: 1. No pneumothorax. Report Dictated on Final Dictated: 12/13/2020 5:22 pm Dictating Physician: MD CHAO JEFFREY Signed Date and Time: 12/13/2020 5:24 pm Signed by: MD CHAO JEFFREY Transcribed Date and Time: 12/13/2020 5:22 Normal [facility] HCG,Urine Qualon 12-13-2020 Beta HCG ( test) Ql (U) Negative Negative NA [facility] Comment on above: Result Comment: Plea se note: Very dilute urine specimens, as indicated by a low specific gravity, may not contain entry level account representative levels of hCG. If is still suspected, a first morning urine specimen should be collected 48 hours later and tested. is the most common reason for HCG in urine, although choriocarcinoma, hydatidiform mole, and certain nontropho- blastic malignancies also result in detectable urinary HCG levels. Sensitivity = 20mIU/mL. Performed By: #### H CGUR #### [facility] [employer] [address] [address] Please note: Very di lute urine specimens, as indicated by a low specific gravity, may not contain entry level account representative levels of hCG. If is still suspected, a first morning urine specimen should be collected 48 hours later and tested. is the most common reason for HCG in urine, although choriocarcinoma, hydatidiform mole, and certain nontropho- blastic malignancies also result in detectable urinary HCG levels. Sensitivity = 20mIU/mL. Op Noteon 12-13-2020 Op Note PATIENT: SUNDEEP VILLEGAS I ADMISSION DATE: 12/13/2020 SURGERY DATE: 12/13/2020 DATE OF : 1980 AGE: 40 ADMITTING PHYSICIAN: Juli Cantor MD ATTENDING PHYSICIAN: Juli Cantor MD DICTATING PHYSICIAN: Juli Cantor MD OPERATIVE RECORD Procedures: RIGHT THORACIC OUTLET DECOMPRESSION AND PECTORALIS MINOR TENOTOMY. Preoperative Diagnosis: Right neurogenic thoracic outlet syndrome. Postoperative Diagnosis: Right neurogenic thoracic outlet syndrome. Anesthesia: General. Traffic Monitor Specialist: Dr. Ferrer. Indications: A 40-year-old white female brought to the operating room for decompression of right thoracic outlet syndrome. Description of Procedure: The patient was placed in the supine position and general anesthesia was induced. The right arm and neck was prepped and draped in the usual sterile fashion. Incision was made and the deltopectoral groove over the coracoid process and this incision was carried down through the fascia between the deltoid and pectoralis major muscles exposing the coracoid process. The insertion of the pectoralis minor on the coracoid was dissected circumferentially and then divided with electrocautery completely decompressing that muscle. The fascia of the pectoralis major and deltoid was then closed with running 2-0 Vicryl suture followed by a running 3-0 Vicryl subcutaneous closure and then a 4-0 Vicryl skin closure. A transverse incision was made in the right supraclavicular fossa about a cm above the clavicle. Through this incision, the platysma was divided with electrocautery as was the lateral edge of the sternocleidomastoid muscle. The scalene fat pad was mobilized from medial to lateral exposing the underlying anterior scalene muscle. The phrenic nerve was identified and dissected off of the anterior scalene muscle. The anterior scalene muscle was then completely excised from the transverse processes down to the first rib. The brachial plexus neurolysis was then performed from C5 through T1. The patient had moderate amounts of fibrous tissue around the lower part of the brachial plexus. Once these nerves were completely dissected circumferentially, the medial half of the middle scalene was also excised. During the dissection, the long thoracic nerve was identified and preserved. The anterior half of the first rib was then removed using bone cutters. were used to smooth down the cut edges. After everything was removed, again the nerves were examined and found to be intact as was the underlying pleura. The 7 mm FABRICIO drain was then placed through a lateral stab incision and brought into the wound and placed in the bed of the first rib. This was sutured to the skin with a 2-0 silk stitch. The scalene fat pad was sutured medially with interrupted 2-0 Vicryl suture. Platysma was closed with a running 3-0 Vicryl suture and then the skin closed with a running 4-0 Vicryl subcuticular stitch, Steri-Strips, and a dry sterile dressing. Estimated blood loss for the procedure was 50 cc. Sponge and needle counts were correct at the end of the case. The patient was taken to the recovery room in stable condition postoperatively. [employer] Job ID: [id number] Juli Cantor MD DOD:12/13/2020 03:26 P DP/rudy DOT:12/13/2020 08:00 P Job Number: [id number] Document Number: [id number] cc: Juli Cantor MD [address] [place] [id number] [facility] Surgical Pathologyon 021 Surgical Pathology [id number] [facility] PATHOLOGY AND LABORATORY MEDICINE [address] [place], [place] [id number] FINAL SURGICAL PATHOLOGY REPORT NAME: JANETTE VILLEGAS I : 1980 40 Y F BILLING NO.: [id number] LOCATION: [address] [place] [address] PROCEDURE 12/13/2020 DATE: SURGEON: JULI CANTOR M.D. RECEIVED 12/14/2020 DATE: ATTENDING: JULI CANTOR M.D. REPORT DATE: 12/15/2020 COPIES TO: DIAGNOSIS: A. ANTERIOR SCALENE MUSCLE, EXCISION - SKELETAL MUSCULAR TISSUE WITH NO SIGNIFICANT PATHOLOGIC CHANGES B. RIGHT FIRST RIB, EXCISION - GROSSLY UNREMARKABLE RIB BONE. SKELETAL MUSCULAR TISSUE WITH NO SIGNIFICANT PATHOLOGIC CHANGES SMT/SMT Signature> S DAHLIA DE LA O M.D. CLINICAL INFORMATION: Right thoracic outlet syndrome SPECIMEN: (A) TISSUE NOS (B) RIB(S) GROSS DESCRIPTION: A. Received in formalin labeled anterior scalene muscle is an irregular, shaggy, red-brown, fibromuscular tissue segment measuring 3.5 x 2 x 2 cm. Cut surfaces are grossly unremarkable. A random section is submitted in a single cassette. B. Received in formalin labeled right first rib is a curved, flat portion of bone consistent with rib measuring 4 x 1.5 x 0.5 cm. There is adherent fibromuscular tissue present. Bone is grossly unremarkable. Random sections of fibromuscular tissue are submitted in a single cassette. JCK/JAF Disclaimer: The following statement applies to all immunohistochemistry, in situ hybridization, molecular studies, and immunofluorescence testing. The use of one or more reagents in the above tests is regulated as an analyte specific reagent (ASR). These tests were developed and their performance characteristics determined by the clinical laboratories of [facility]. They have not been cleared by the US Food and Drug Administration (FDA). The FDA has determined that such clearance or approval is not necessary. All the above immunostains were performed on paraffin embedded tissue. Appropriate positive and negative controls (where applicable) were run in parallel with the patient's specimen; these controls showed expected staining pattern, with acceptable intensity of staining. Immunohistochemical assays have not been validated on decalcified tissues. Results should be interpreted with caution given the raised possibility of false negativity on decalcified specimens. Professional Performing Location: [address] [address]. DEPARTMENT OF PATHOLOGY AND LABORATORY MEDICINE [place], [place] [address] [email or web address] Normal [facility] XR CHEST PORTABLEon 12-14-19 [facility] Incoming Radiology Results From [facility] - 12/13/2020 5:25 PM EDT Patient Name: JANETTE VILLEGAS I Diagnostic Radiology ACCESSION EXAM DATE/TIME PROCEDURE ORDERING PROVIDER [id number] 12/13/2020 16:47 EDT CR Chest Portable MD FERRER ANDREW CPT code 80499 Reason For Exam (CR Chest Portable) assessment for right pneumothorax, diaphragm paralysis of pleural effusion Report CLINICAL INFORMATION: Chest pain. Portable view of the chest at 1610 hours is provided without comparison. FINDINGS: The cardiac silhouette and mediastinum are within normal limits. The lungs are free of infiltrate or pleural effusion. There is no pneumothorax. The patient is status post right upper thoracic surgery (resection of the 1st rib). IMPRESSION: 1. No pneumothorax. Report Dictated on --- Final --- Dictated: 12/13/2020 5:22 pm Dictating Physician: MD CHAO JEFFREY Signed Date and Time: 12/13/2020 5:24 pm Signed by: MD CHAO JEFFREY Transcribed Date and Time: 12/13/2020 5:22 [facility] Work Phone: Patient Name: JANETTE VILLEGAS I Diagnostic Radiology ACCESSION EXAM DATE/TIME PROCEDURE ORDERING PROVIDER [id number] 12/13/2020 16:47 EDT CR Chest Portable MD FERRER ANDREW CPT code 43617 Reason For Exam (CR Chest Portable) assessment for right pneumothorax, diaphragm paralysis of pleural effusion Report CLINICAL INFORMATION: Chest pain. Portable view of the chest at 1610 hours is provided without comparison. FINDINGS: The cardiac silhouette and mediastinum are within normal limits. The lungs are free of infiltrate or pleural effusion. There is no pneumothorax. The patient is status post right upper thoracic surgery (resection of the 1st rib). IMPRESSION: 1. No pneumothorax. Report Dictated on --- Final --- Dictated: 12/13/2020 5:22 pm Dictating Physician: MD CHAO JEFFREY Signed Date and Time: 12/13/2020 5:24 pm Signed by: MD CHAO JEFFREY Transcribed Date and Time: 12/13/2020 5:22 [facility] Work Phone: Basic Metabolic Panelon 11-21 Anion gap [Moles/Vol] 11 mmol/L Normal 3-13 [facility] Comment on above: Performed By: #### Gerard COHEN3, HEMOG #### [facility] [address] [place] [address] Calcium [Mass/Vol] 9.4 mg/dL Normal 8.4-10.4 [facility] Comment on above: Performed By: #### Gerard MP3, HEMOG #### [facility] [address] [place] [address] CO2 [Moles/Vol] 24 mmol/L Normal 22-30 [facility] Comment on above: Performed By: #### Gerard MP3, HEMOG #### [facility] [address] [place] [address] Glucose [Mass/Vol] 95 mg/dL Normal 70-100 [facility] Comment on above: Performed By: #### Gerard MP3, HEMOG #### [facility] [address] [place] [address] Urea nitrogen [Mass/Vol] 10 mg/dL Normal 7-20 [facility] Comment on above: Performed By: #### B MP3, HEMOG #### [employer] [address] [place] [address] Creatinine [Mass/Vol] 0.61 mg/dL Normal 0.52-1.25 [facility] Comment on above: Performed By: #### B MP3, HEMOG #### [employer] [address] [place] [address] GFR/1.73 sq M predicted among blacks MDRD (S/P/Bld) [Vol rate/Area] mL/min/{1.73_m2} Normal >60 [facility] Comment on above: Performed By: #### B MP3, HEMOG #### [employer] [address] [place] [address] GFR/1.73 sq M predicted among non-blacks MDRD (S/P/Bld) [Vol rate/Area] mL/min/{1.73_m2} Normal >60 [facility] Comment on above: Result Comment: KDIG O guidelines provide the following GFR categories: Stage GFR(ml/min/1.73 m2) Terms G1 >=90 Normal or high G2 60-89 Mildly decreased* G3a 45-59 Mildly to moderately decreased G3b 30-44 Moderately to severely decreased G4 15-29 Severely decreased G5 <15 Kidney failure *Relative to young adult level. In the absence of evidence of kidney damage, neither GFR category G1 nor G2 fulfill the criteria for CKD. The CKD-EPI equation is validated in individuals 18 years of age and older. Currently the best equation for estimating glomerular filtration rate (GFR) from serum creatinine in children is the Bedside López equation. It is less accurate in patients with extremes of muscle mass, restriction of dietary protein, ingestion of creatine, extra-renal metabolism of creatinine, or treatment with medications that affect renal tubular creatinine secretion. Performed By: #### B MP3, HEMOG #### [employer] [address] [place] [address] Potassium [Moles/Vol] 4.6 mmol/L Normal 3.5-5.1 [facility] Comment on above: Performed By: #### B MP3, HEMOG #### [facility] [address] [place] [address] Sodium [Moles/Vol] 139 mmol/L Normal 135-145 [facility] Comment on above: Performed By: #### B MP3, HEMOG #### [facility] [address] [place] [address] Chloride [Moles/Vol] 104 mmol/L Normal 98-107 [facility] Comment on above: Performed By: #### B MP3, HEMOG #### [facility] [address] [place] [address] Anion gap [Moles/Vol] 11 mmol/L 3 - 13 mmol/L [facility] Work Phone: Calcium [Mass/Vol] 9.4 mg/dL 8.4 - 10. 4 mg/dL [facility] Work Phone: Chloride [Moles/Vol] 104 mmol/L 98 - 10 7 mmol/L [facility] Work Phone: CO2 [Moles/Vol] 24 mmol/L 22 - 30 mmol/L [facility] Work Phone: Creatinine [Mass/Vol] 0.61 mg/dL 0.52 - 1.25 mg/dL [facility] Work Phone: EGFR IF NonAfrican Greenlandic >90.0 >60 mL/min [facility] Work Phone: Comment on above: KDIGO guidelines pro vide the following GFR categories: Stage GFR(ml/min/1.73 m2) Terms G1 >=90 Normal or high G2 60-89 Mildly decreased* G3a 45-59 Mildly to moderately decreased G3b 30-44 Moderately to severely decreased G4 15-29 Severely decreased G5 <15 Kidney failure *Relative to young adult level. In the absence of evidence of kidney damage, neither GFR category G1 nor G2 fulfill the criteria for CKD. The CKD-EPI equation is validated in individuals 18 years of age and older. Currently the best equation for estimating glomerular filtration rate (GFR) from serum creatinine in children is the Bedside López equation. It is less accurate in patients with extremes of muscle mass, restriction of dietary protein, ingestion of creatine, extra-renal metabolism of creatinine, or treatment with medications that affect renal tubular creatinine secretion. GFR/1.73 sq M predicted among blacks MDRD (S/P/Bld) [Vol rate/Area] mL/min/{1.73_m2} >60 mL/min [employer] Work Phone: Glucose [Mass/Vol] 95 mg/dL 70 - 100 mg/dL [employer] Work Phone: Potassium [Moles/Vol] 4.6 mmol/L 3.5 - 5.1 mmol/L [employer] Work Phone: Sodium [Moles/Vol] 139 mmol/L 135 - 145 mmol/L [employer] Work Phone: Urea nitrogen [Mass/Vol] 10 mg/dL 7 - 20 mg/dL [employer] Work Phone: Test Performed by [employer], [address] [place] [id number] [employer] Work Phone: CBC (Hemogram)on 12-06-2020 Erythrocyte distribution width (RBC) [Ratio] 13.3 % 11.5 - 14.5 % [employer] Work Phone: Hematocrit (Bld) [Volume fraction] 38.7 % 35.0 - 47.0 % [employer] Work Phone: Hemoglobin (Bld) [Mass/Vol] 13.0 g/dL 11.7 - 16.0 g/dL [employer] Phone: MCH (RBC) [Entitic mass] 29.0 pg 26.0 - 34.0 pg [employer] Work Phone: MCHC (RBC) [Mass/Vol] 33.7 % 32.0 - 36.0 % [employer] Phone: MCV (RBC) [Entitic vol] 86.1 fL 79.0 - 98.0 fL [employer] Work Phone: Platelet mean volume (Bld) [Entitic vol] 7.5 fL 7.4 - 10.4 fL [employer] Work Phone: Platelets (Bld) [#/Vol] 338 10*3/uL 140 - 440 10*3/uL [employer] Work Phone: RBC (Bld) [#/Vol] 4.49 10*6/uL 3.80 - 5.2 0 10*6/uL [facility] Work Phone: WBC (Bld) [#/Vol] 7.1 10*3/uL 3.6 - 10.7 10*3/uL [facility] Work Phone: Test Performed by [facility], [address] [place] [address] [facility] Work Phone: Hemogramon 12-06-2020 Erythrocyte distribution width (RBC) [Ratio] 13.3 % Normal 11.5-14.5 [facility] Comment on above: Performed By: #### B MP3, HEMOG #### [facility] [address] [place] [place] [address] Hematocrit (Bld) [Volume fraction] 38.7 % Normal 35.0-47.0 [facility] Comment on above: Performed By: #### B MP3, HEMOG #### [facility] [address] [place] [place] [address] Hemoglobin (Bld) [Mass/Vol] 13.0 g/dL Normal 11.7-16.0 [facility] Comment on above: Performed By: #### B MP3, HEMOG #### [facility] [address] [place] [place] [address] MCH (RBC) [Entitic mass] 29.0 pg Normal 26.0-34.0 [facility] Comment on above: Performed By: #### B MP3, HEMOG #### [facility] [address] [place] [address] MCHC (RBC) [Mass/Vol] 33.7 % Normal 32.0-36.0 [facility] Comment on above: Performed By: #### B MP3, HEMOG #### [facility] [address] [place] [address] MCV (RBC) [Entitic vol] 86.1 fL Normal 79.0-98.0 [facility] Comment on above: Performed By: #### B MP3, HEMOG #### [facility] [address] [place] [address] Platelet mean volume (Bld) [Entitic vol] 7.5 fL Normal 7.4-10.4 [facility] Comment on above: Performed By: #### B MP3, HEMOG #### [facility] [address] [place] [address] Platelets (Bld) [#/Vol] 338 10*3/uL Normal 140-440 [facility] Comment on above: Performed By: #### B MP3, HEMOG #### [facility] [address] [place] [address] RBC (Bld) [#/Vol] 4.49 10*6/uL Normal 3.80-5.20 [facility] Comment on above: Performed By: #### B MP3, HEMOG #### [facility] [address] [place] [address] WBC (Bld) [#/Vol] 7.1 10*3/uL Normal 3.6-10.7 [facility] Comment on above: Performed By: #### B MP3, HEMOG #### [facility] [address] [place] [address] TS GELon 12-06-2020 TS GEL ABO Group: A Rh, Gel: POS Antibody Screen Gel: NEG Normal [facility] Comment on above: Performed By: #### T SGL #### [facility] TYPE AND SCREENon 12-06-2020 Sodium [Moles/Vol] Negative [employer] Work Phone: Sodium [Moles/Vol] Positive [facility] Work Phone: Sodium [Moles/Vol] A [facility] Work Phone: Test Performed by [facility] [employer] [facility], [address] [place], [place] [address] [employer] Work Phone: Lab Report: PAP I-G HPV Hi R iskon 07-11-2017 HPV HC,[facility] RISK Negative Invalid Interpretation Code Negative [facility] Work Phone: Office Visit: annualon 07-03 Documentation of current medications (procedure) Done Invalid Interpretation [facility] No Invalid Interpretation Code [facility] Tobacco smoking status NHIS Never Invalid Interpretation Code [facility] Tobacco use CPHS Never smoker Invalid Interpretation Code [facility] CNCOon 06-11-2017 CNCO Letter Carli Reynoso M.D.[facility] [place], [place] [address]Orpjs: Janette Villegas[address] [facility] [id number] #: [id number] ,Due to unforeseen circumstances, there has been a change in the schedule forDr. Aparna Reynoso's office . Your original appointment was scheduled for06/20/17 at 3:50pm. Please give our office a call at [phone] toreschedule your appointment. We apologize for any inconvenience this maycause you.Sincerely,[facility] Normal [facility] Office Visit: annualon 03-23 General categories [Interpretation] of Cervical or vaginal smear or scraping by Cyto stain Normal Invalid Interpretation Code [facility] Vital Signs Date Time Vital Sign Value Performing Clinician Faci jamie 03-15-2025 13:23-0400 Body height 160.[address] Deniz Melchor MD Work Phone: [facility] 03-15-2025 13:19-0400 Body mass index (BMI) [Ratio] 29.2 kg/m2 Dr. Deniz Melchor MD Work Phone: [facility] 03-15-2025 13:19-0400 Body weight 75.[address] Deniz Melchor MD Work Phone: [facility] 03-15-2025 13:19-0400 Diastolic blood pressure 70 mm[Hg] Dr. Deniz Melchor MD Work Phone: [facility] 03-15-2025 13:19-0400 Systolic blood pressure 120 mm[Hg] Dr. Deniz Melchor MD Work Phone: [facility] 04-02-2024 14:03-0400 Diastolic Blood Pressure Non-Invasive 87 mm[Hg] PAIGE GIBSON MD [facility] 04-02-2024 14:03-0400 Heart rate 62 /min PAIGE GIBSON MD [facility] 04-02-2024 14:03-0400 Systolic Blood Pressure Non-Invasive 118 mm[Hg] PAIGE GIBSON MD [facility] 04-02-2024 13:05-0400 Diastolic Blood Pressure Non-Invasive 81 mm[Hg] PAIGE GIBSON MD [facility] 04-02-2024 13:05-0400 Heart rate 63 /min PAIGE GIBSON MD [facility] 04-02-2024 13:05-0400 Systolic Blood Pressure Non-Invasive 117 mm[Hg] PAIGE GIBSON MD [facility] 04-02-2024 12:50-0400 Diastolic Blood Pressure Non-Invasive 71 mm[Hg] PAIGE GIBSON MD [facility] 04-02-2024 12:50-0400 Heart rate 57 /min PAIGE GIBSON MD [facility] 04-02-2024 12:50-0400 Systolic Blood Pressure Non-Invasive 106 mm[Hg] PAIGE GIBSON MD [facility] 04-02-2024 12:20-0400 Body temperature 97.88 [degF] PAIGE GIBSON MD [facility] 04-02-2024 12:05-0400 Body temperature 97.52 [degF] PAIGE GIBSON MD [facility] 04-02-2024 12:00-0400 Respiratory Rate - Anes 8 br/min PAIGE GIBSON MD [facility] 04-02-2024 11:55-0400 Respiratory Rate - Anes 6 br/min PAIGE GIBSON MD [facility] 04-02-2024 11:50-0400 Respiratory Rate - Anes 6 br/min PAIGE GIBSON MD [facility] 04-02-2024 10:17-0400 Body height 162.6 cm PAIGE GIBSON MD [facility] 04-02-2024 10:17-0400 Body temperature 98.06 [degF] PAIGE GIBSON MD [facility] 04-02-2024 10:17-0400 Body weight 68.2 kg PAIGE GIBSON MD [facility] 04-02-2024 10:17-0400 Heart rate 64 /min PAIGE GIBSON MD [facility] 04-02-2024 10:17-0400 Respiratory rate 16 /min PAIGE GIBSON MD [facility] 03-31-2024 14:42-0400 Blood Pressure Cuff Size PAIGE GIBSON MD [facility] 03-31-2024 14:42-0400 Blood Pressure Location PAIGE GIBSON MD [facility] 03-31-2024 14:42-0400 Blood Pressure Method PAIGE GIBSON MD [facility] 03-31-2024 14:42-0400 Body height 162.6 cm PAIGE GIBSON MD [facility] 03-31-2024 14:42-0400 Body weight 68.2 kg PAIGE GIBSON MD [facility] 03-31-2024 14:42-0400 Body weight 25.8 kg/m2 PAIGE GIBSON MD [facility] 03-31-2024 14:42-0400 Diastolic Blood Pressure Non-Invasive 68 mm[Hg] PAIGE GIBSON MD [facility] 03-31-2024 14:42-0400 Heart rate 69 /min PAIGE GIBSON MD [facility] 03-31-2024 14:42-0400 Systolic Blood Pressure Non-Invasive 101 mm[Hg] PAIGE GIBSON MD [facility] 03-05-2023 14:02-0400 Body height 160.[address] Deniz Melchor Work Phone: [facility] 03-05-2022 13:14-0400 Body height 160.[address] Deniz Melchor Work Phone: [facility] Work Phone: 03-05-2022 13:14-0400 Body mass index (BMI) [Ratio] 27.6 kg/m2 Dr. Deniz Melchor Work Phone: [facility] Work Phone: 03-05-2022 13:14-0400 Body weight 70.[address] Deniz Melchor Work Phone: [facility] Work Phone: 03-05-2022 13:14-0400 Diastolic blood pressure 80 mm[Hg] Dr. Deniz Melchor Work Phone: [facility] Work Phone: 03-05-2022 13:14-0400 Systolic blood pressure 126 mm[Hg] Dr. Deniz Melchor Work Phone: [facility] Work Phone: 03-05-2022 13:14-0400 Body height 160.[address] Deniz Melchor Work Phone: [facility] Work Phone: 03-05-2022 13:14-0400 Body mass index (BMI) [Ratio] 27.6 kg/m2 Dr. Deniz Melchor Work Phone: [facility] Work Phone: 03-05-2022 13:14-0400 Body weight 70.[address] Deniz Melchor Work Phone: [facility] Work Phone: 03-05-2022 13:14-0400 Diastolic blood pressure 80 mm[Hg] Dr. Deniz Melchor Work Phone: [facility] Work Phone: 03-05-2022 13:14-0400 Systolic blood pressure 126 mm[Hg] Dr. Deniz Melchor Work Phone: [facility] Work Phone: 02-27-2022 10:02-0400 Body mass index (BMI) [Ratio] 27.4 kg/m2 Dr. Deniz Melchor Work Phone: [facility] Work Phone: 02-27-2022 10:02-0400 Body weight 70.[address] Deniz Melchor Work Phone: [facility] Work Phone: 02-27-2022 10:02-0400 Diastolic blood pressure 60 mm[Hg] Dr. Deniz Melchor Work Phone: [facility] Work Phone: 02-27-2022 10:02-0400 Systolic blood pressure 94 mm[Hg] Dr. Deniz Melchor Work Phone: [facility] Work Phone: 02-27-2022 10:02-0400 Body mass index (BMI) [Ratio] 27.4 kg/m2 Dr. Deniz Melchor Work Phone: [facility] Work Phone: 02-27-2022 10:02-0400 Body weight 70.[address] Deniz Melchor Work Phone: [facility] Work Phone: 02-27-2022 10:02-0400 Diastolic blood pressure 60 mm[Hg] Dr. Deniz Melchor Work Phone: [facility] Work Phone: 02-27-2022 10:02-0400 Systolic blood pressure 94 mm[Hg] Dr. Deniz Melchor Work Phone: [facility] Work Phone: 12-16-2020 07:54-0400 Body Temperature 96.69 [degF] Juli Cantor [employer] Work Phone: 12-16-2020 07:54-0400 BP Diastolic 73 mm[Hg] Juli Cantor [employer] Work Phone: 12-16-2020 07:54-0400 BP Systolic 113 mm[Hg] Juli Cantor [facility] Work Phone: 12-16-2020 07:54-0400 Pulse (Heart Rate) 62 /min Juli Cantor [facility] Work Phone: 12-16-2020 07:54-0400 Pulse Oximetry 98 % Juli Cantor [facility] Work Phone: 12-16-2020 07:54-0400 Respiratory Rate 16 /min Juli Cantor [facility] Work Phone: 12-13-2020 11:34-0400 BMI (Body Mass Index) 27.1 kg/m2 Juli Cantor [facility] Work Phone: 12-13-2020 11:34-0400 Body weight 69.4 kg Juli PAYNEA Work Phone: 12-13-2020 11:34-0400 Height 160 cm Juli PAYNEA Work Phone: 12-06-2020 10:12-0400 Body Temperature 96.8 [degF] Juli PAYNEA Work Phone: 12-06-2020 10:12-0400 BP Diastolic 81 mm[Hg] Juli PAYNEA Work Phone: 12-06-2020 10:12-0400 BP Systolic 122 mm[Hg] Juli PAYNEA Work Phone: 12-06-2020 10:12-0400 Pulse (Heart Rate) 65 /min Juli PAYNEA Work Phone: 12-06-2020 10:12-0400 Pulse Oximetry 99 % Juli PAYNEA Work Phone: 12-06-2020 10:08-0400 BMI (Body Mass Index) 27.17 kg/m2 Juli PAYNEA Work Phone: 12-06-2020 10:08-0400 Body weight 69.58 kg Juli PAYNEA Work Phone: 12-06-2020 10:08-0400 Height 160 cm Juli PAYNEA Work Phone: 12-06-2020 10:08-0400 Respiratory Rate 16 /min Juli PAYNEA Work Phone: 07-03-2017 15:47-0400 BMI (Body Mass Index) 0 kg/m2 Cassidy Villa MD [facility] 07-03-2017 15:47-0400 BP Diastolic 80 mm[Hg] Cassidy Villa MD [facility] 07-03-2017 15:47-0400 BP Systolic 114 mm[Hg] Cassidy Villa MD [facility] 07-03-2017 15:47-0400 Height 160.02 cm Cassidy Villa MD [facility] 07-03-2017 15:47-0400 Weight Cassidy Villa MD [facility] 07-03-2017 15:47-0400 Weight 0 kg Cassidy Villa MD [facility] Encounters Encounter Date Encounter Type Care Provider Facility Start: 03-23-2025 ambulatory Kesha Mohamud ENGINE LATHE SET UP OPERATOR Facil ity:[facility] Start: 03-23-2025 Patient encounter procedure Kesha Mohamud ENGINE LATHE SET UP OPERATOR-C -[facility] Work Phone: Start: 03-19-2025 End: 03-19-2025 Patient encounter procedure Kesha Mohamud ENGINE LATHE SET UP OPERATOR-C -[facility] Work Phone: Start: 03-19-2025 End: 03-19-2025 ambulatory Kesha Mohamud ENGINE LATHE SET UP OPERATOR Facility:[facility] Start: 03-15-2025 End: 03-15-2025 Patient encounter procedure Kesha Mohamud ENGINE LATHE SET UP OPERATOR-C -[facility] Work Phone: Start: 03-15-2025 End: 03-15-2025 Patient encounter status Kesha Mohamud ENGINE LATHE SET UP OPERATOR-C [facility] Start: 03-15-2025 End: 03-15-[address] Deniz Melchor MD Work Phone: [facility] Work Phone: Start: 06-23-2024 End: 06-23-2024 ambulatory Kesha Mohamud ENGINE LATHE SET UP OPERATOR Facility:[facility] Start: 04-28-2024 End: 04-28-2024 ambulatory Kesha [place] ENGINE LATHE SET UP OPERATOR Facility:[facility] Start: 04-02-2024 End: 04-02-2024 SAME DAY STAY PAIGE GIBSON MD [facility] Start: 03-31-2024 End: 03-31-2024 Admission to establishment PAIGE GIBSON MD [facility] Start: 03-24-2024 ambulatory DENIZ MELCHOR MD Faci lity:B Start: 02-25-2024 End: 02-25-2024 ambulatory DENIZ MELCHOR MD Facility:[facility] Start: 02-25-2024 End: 02-25-2024 Patient encounter procedure DENIZ MELCHOR MD [facility] Start: 01-09-2024 End: 01-09-2024 ambulatory DENIZ MELCHOR MD Facility:[facility] Start: 01-09-2024 End: 01-09-2024 Patient encounter procedure DENIZ MELCHOR MD [facility] Start: 12-31-2023 ambulatory DENIZ MELCHOR MD Faci lity:B Start: 03-15-2023 End: 03-15-[address] Deniz Melchor Work Phone: [facility] Work Phone: Start: 03-15-2023 End: 03-15-[address] Deniz Melchor Work Phone: [facility]-Outpatient Breast Imaging Work Phone: Start: 03-05-2023 End: 03-05-[address] Deniz Melchor Work Phone: [facility] Work Phone: Start: 03-05-2022 End: 03-05-[address] Deniz Melchor Work Phone: [facility]-Laboratory, Specimen Start: 03-05-2022 End: 03-05-[address] Deniz Melchor Work Phone: [facility] Start: 03-01-2022 End: 03-01-[address] Deniz Melchor Work Phone: [facility]-Outpatient Breast Imaging Start: 02-27-2022 End: 02-27-[address] Deniz Melchor Work Phone: [facility] Start: 12-13-2020 End: 12-16-2020 Evaluation and management of inpatient Juli Cantor Work Phone: [facility]acity Management Comment on above: Neurogenic thoracic outlet syndrome of right brachial plexus (Primary Dx) Start: 12-06-2020 End: 12-06-2020 Subsequent hospital visit by physician Juli Cantor Work Phone: [facility] Pre-Admit Testing Comment on above: Neurogenic thoracic outlet syndrome of right brachial plexus Start: 07-06-2020 End: 07-07-2020 Patient encounter procedure [facility] Start: 06-27-2020 End: 06-28-2020 Patient encounter procedure [facility] Procedures Date Procedure Procedure Detail Performing Clinician Start: 03-19-2025 Screening mammography Clarice Melchor MD Work Phone: Start: 03-15-2023 Screening mammography Clarice Melchor Work Phone: Start: 03-01-2022 Screening mammography Clarice Melchor Work Phone: Start: 12-16-2020 BASIC METABOLIC PANE L W/ REFLEX TO MG FOR LOW K Daniel Agustin Ferrer Work Phone: Start: 12-16-2020 Blood count complete auto&auto difrntl wbc Daniel Ferrer Work Phone: Start: 12-15-2020 BASIC METABOLIC PANE L W/ REFLEX TO MG FOR LOW K Daniel A Nabil Work Phone: Start: 12-15-2020 Blood count complete auto&auto difrntl wbc Daniel Ferrer Work Phone: Start: 12-14-2020 OPERATIVE REPORT 3m Sca nning Start: 12-14-2020 BASIC METABOLIC PANE L W/ REFLEX TO MG FOR LOW K Daniel Ferrer Work Phone: Start: 12-14-2020 Blood count complete auto&auto difrntl wbc Daniel Ferrer Work Phone: Start: 12-13-2020 Radiologic exam ches t single view Daniel Ferrer Work Phone: Start: 12-13-2020 Level iv surg pathol ogy gross&microscopic exam Juli Cantor Work Phone: Start: 12-13-2020 Urine test visual color cmprsn meths Bud Dubon Work Phone: Start: 12-06-2020 Basic metabolic pane l calcium total Juli Cantor Work Phone: Start: 12-06-2020 Blood count complete automated Juli Cantor Work Phone: Start: 12-06-2020 Blood typing serologic abo Juli Cantor Work Phone: Start: 12-06-2020 Ecg routine ecg w/le ast 12 lds w/i&r Juli Cantor Work Phone: Start: 05-24-2003 Cholecystectomy DENIZ MELCHOR MD Colonoscope, device (physical object) DENIZ MELCHOR MD Comment on above: less than 10 years a gp Excision of rib DENIZ Masters MD Comment on above: 1st rib removal Rhinoplasty augmenta tion with synthetic implant PAIGE GIBSON MD Structure of wisdom tooth (body structure) PAIGE GIBSON MD Plan of Treatment Date Care Activity Detail Author Start: 03-23-2025 Mammography DIAG MAMM W/CA D, UNILAT [facility] Start: 03-23-2025 MG Breast Diagnostic [facility] Start: 03-23-2025 Ultrasonography of breast Alejandra st Limited Unilateral [facility] Start: 11-06-2023 DTaP/Tdap/Td vaccine (8 - Td) DTaP/Tdap/Td vaccine (8 - Td) [facility] Work Phone: Start: 12-26-2020 End: 12-26-2020 Office Visit 12/26/2020 Office Visit Vascular Surgery Juli Cantor MD [address] [place] [address] [phone] [facility] Start: 12-13-2020 End: 12-13-2020 Appointment 12/13/2020 Appointment General Surgery Juli Cantor MD [address] [place] [address] [phone] [facility] General Surgery Start: 12-09-2020 COVID-19 Vaccine (2 - Pfizer 2-dose series) COVID-19 Vaccine (2 - Pfizer 2-dose series) [facility] Work Phone: Start: 2002 Screening for malign ant neoplasm of cervix Cervical cancer screen [facility] Work Phone: Start: 1996 HIV screening HIV screen [facility] Work Phone: Start: 1982 Varicella vaccine (1 of 2 - 2-dose childhood series) Varicella vaccine (1 of 2 - 2-dose childhood series) [facility] Work Phone: Start: 1981 Hepatitis C screening Hepatitis C sc reen [facility] Work Phone: Basic Metabolic Pane l w/ Reflex to MG Basic Metabolic Panel w/ Reflex to MG Lab Routine Daily until discontinued starting 12/14/2020, 3 completed [facility] Work Phone: Comment on above: Daily until disconti nued starting 12/14/2020, 3 completed CBC auto differential CBC auto d ifferential Lab Routine Daily until discontinued starting 12/14/2020, 3 completed [facility] Work Phone: Comment on above: Daily until disconti nued starting 12/14/2020, 3 completed EKG 12 lead EKG 12 lead ECG Routine Neurogenic thoracic outlet syndrome of right brachial plexus 12/06/2020 10:25 AM EDT [facility] Work Phone: End: 12-13-2020 Intermittent pulse oximetry Pulse Oximetry Spot Check Respiratory Care Routine One Time for 1 Occurrences starting 12/13/2020 until 12/13/2020 [facility] Work Phone: Comment on above: One Time for 1 Occur rences starting 12/13/2020 until 12/13/2020 MG Breast - bilatera l Screening [facility] Oxygen therapy [Mini [facility] Data Set] Initiate Oxygen Therapy Protocol Respiratory Care Routine Daily until discontinued starting 12/13/2020 [facility] Work Phone: Comment on above: Daily until disconti nued starting 12/13/2020 Spirometry panel Incentive whitney metry Respiratory Care Routine Every 2hr while awake until discontinued starting 12/13/2020 [facility] Work Phone: Comment on above: Every 2hr while awak e until discontinued starting 12/13/2020 [facility] Immunizations Immunization Date Immunization Notes Care Provider Fa [facility] 06-14-2021 tetanus toxoid, redu christian diphtheria toxoid, and acellular pertussis vaccine, adsorbed; Translations: [Boostrix (Tdap)] DENIZ MELCHOR MD [facility] 07-22-2020 influenza, injectabl e, quadrivalent, preservative free; Translations: [Fluarix PF Quadrivalent ] DENIZ MELCHOR MD [facility] 06-25-2019 influenza, injectabl e, quadrivalent, preservative free; Translations: [Fluarix PF Quadrivalent ] DENIZ MELCHOR MD [facility] 06-18-2018 influenza virus vaccine, unspecified formulation DENIZ MELCHOR MD [facility] 11-06-2013 tetanus toxoid, redu christian diphtheria toxoid, and acellular pertussis vaccine, adsorbed Juli Cantor [employer] Work Phone: 07-04-2013 influenza virus vaccine, unspecified formulation Juli Cantor [employer] Work Phone: 04-02-2013 tetanus toxoid, redu christian diphtheria toxoid, and acellular pertussis vaccine, adsorbed DENIZ MELCHOR MD [facility] 06-21-2010 influenza virus vaccine, unspecified formulation Juli [employer] Work Phone: 01-10-2009 hepatitis B pediatri c vaccine DENIZ MELCHOR MD [facility] 07-23-2008 hepatitis B pediatri c vaccine DENIZ MELCHOR MD [facility] 06-21-2008 hepatitis B pediatri c vaccine DENIZ MELCHOR MD [facility] 03-10-2003 hepatitis B vaccine, unspecified formulation DENIZ MELCHOR MD [facility] 02-04-2003 hepatitis B vaccine, unspecified formulation DENIZ MELCHOR MD [facility] 04-22-1986 diphtheria, tetanus toxoids and acellular pertussis vaccine DENIZ MELCHOR MD [facility] 04-22-1986 poliovirus vaccine, inactivated DENIZ MELCHOR MD [facility] 01-18-1983 diphtheria, tetanus toxoids and acellular pertussis vaccine DENIZ MELCHOR MD [facility] 01-18-1983 poliovirus vaccine, inactivated DENIZ MELCHOR MD [facility] 08-24-1982 measles/mumps/rubell a virus vaccine DENIZ MELCHOR MD [facility] 05-10-1982 measles/mumps/rubell a virus vaccine DENIZ MELCHOR MD [facility] 1981 diphtheria, tetanus toxoids and acellular pertussis vaccine DENIZ MELCHOR MD [facility] 1981 poliovirus vaccine, inactivated DENIZ MELCHOR MD [facility] 1981 diphtheria, tetanus toxoids and acellular pertussis vaccine DENIZ MELCHOR MD [facility] 1981 poliovirus vaccine, inactivated DENIZ MELCHOR MD [facility] 1981 diphtheria, tetanus toxoids and acellular pertussis vaccine DENIZ MELCHOR MD [facility] 1981 poliovirus vaccine, inactivated DENIZ MELCHOR MD [facility] Payers Date Payer Category Payer Self-pay [id number] 1980 Unknown [id number] 2.16.8 [id number] 1981 Unknown [id number] 2.16.8 [id number] 1981 Unknown [id number] 2.16.8 [id number] 1981 Unknown [id number] 2.16.8 [id number] 1981 Unknown [id number] 2.16.8 [id number] 1981 Unknown [id number] 2.16.8 [id number] 1981 Unknown [id number] 2.16.8 [id number] 1959 Unknown [id number] Unknown [id number] 2.16.8 [id number] Unknown [id number] 2.16.8 [id number] Unknown [id number] 2.16.8 [id number] Unknown [id number] 2.16.8 [id number] Unknown [id number] 2.16.8 [id number] Social History Date Type Detail Facility Start: 12-06-2020 End: 03-10-2024 Tobacco smoking status NHIS Never smoker [facility] Start: 12-06-2020 End: 12-13-2020 Tobacco use and exposure Never used [employer] Work Phone: Start: 12-06-2020 End: 12-13-2020 Alcohol intake Ex-drinker (finding) [employer] Work Phone: Start: 05-06-2020 History SDOH Alcohol Frequency 1 [employer] Work Phone: Start: 07-20-2020 Alcohol Comment rare [employer] Work Phone: Sex Assigned At Not on file [employer] Work Phone: Exposure to SARS-CoV -2 (event) Not sure [employer] Work Phone: Start: 03-05-2022 End: 03-05-2023 Tobacco smoking status NHIS Unknown if ever smoked [facility] Start: 01-29-[address] [facility] Start: 1980 Sex Assigned At Female [facility] Medical Equipment Procedure Code Equipment Code Equipment Origin al Text Equipment Identifier Dates Unknown Unknown 02/22/24 Unknown Unknown FDA Start: 02-22-2024 Functional Status Date Assessment Result Facility 04-02-2024 Functional Status bilateral knee high applied/on [facility] 04-02-2024 Functional Status Maintained [facility] 03-31-2024 Functional Status Sensory Deficits None [facility] Mental Status Date Assessment Result Facility 04-02-2024 Mental Status Oriented x 4 [facility] 04-02-2024 Mental Status [facility] Clinical Notes 02-25-2024 to 03-15-2025 Note Date & Type Note Facility 03-15-2025 Evaluation note Diagnosis Onset Date Resolution Encounter for routine gynecological examination noneactive March 15, 2025 1:16pm [facility] Work Phone: 1(992) 856-189806-23-2025 Progress [facility] [address], [address] [place] [address] OFFICE VISIT Date of Service: 03/15/25 MR#: [id number] Acct: [id number] Name: JANETTE BARLOW Rep #: [id number] : 1980 Provider: CORNELIUS Mallory Age/Sex: 44/F Location: [facility] Status: Signed Intake Vital Signs 04/28/24 14:45 03/15/25 13:19 03/15/25 13:23 Height 5 ft 3 in 5 ft 3 in 5 ft 3 in Weight: 165 lb 6 oz BMI 29.2 BP 120/70 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 Is patient in pain?: No Allergies albuterol (From ProAir HFA) Allergy (Mild, Verified 03/15/25 13:18) rapid heartrate poison bea extract (Poison Bea Extract) Allergy (Verified 03/15/25 13:18) Hives sumatriptan (From Imitrex) Allergy (Verified 03/15/25 13:18) Anaphylaxis sumatriptan succinate (From Imitrex) Allergy (Verified 03/15/25 13:18) Anaphylaxis Medications ?Medication ?Instructions ?Recorded ?Confirmed ?Type acetaminophen 325 mg capsule 325 mg PO ONCE PRN 03/15/25 History sertraline 50 mg tablet (Zoloft) 50 mg PO DAILY 03/15/25 History fluticasone propionate 50 1 spray intranasal DAILY 03/15/25 History mcg/actuation nasal spray,suspension (Flonase Allergy Relief) multivitamin with minerals 1 tablet PO DAILY 12/06/20 03/15/25 History (Hair,Skin and Nails tablet) meclizine 12.5 mg tablet 12.5 mg PO DAILY PRN 2 03/15/25 History levonorgestrel (Mirena) 1 device intrauterine ONCE 0 03/16/24 03/15/25 History prednisone 5 mg tablets in a dose 5 mg PO DIRECTED 04/28/24 03/15/25 History pack tizanidine 2 mg capsule (Zanaflex) 2 mg PO Q8H PRN 03/15/25 History Is last menstrual period known: No Post menopausal: No Patient : No : No Nurse's Note: No menses with IUD. PFSH Medical History Thoracic outlet syndrome Lichen sclerosus IBS (irritable bowel syndrome) Anxiety with depression Surgical History Rib deformity History of wisdom tooth extraction, class II edentulism Hx laparoscopic cholecystectomy Family History Father Heart disease Diabetes Grandmother Diabetes Social History adopted: No housing: house number of children: 2 current occupation: [employer] current occupational exposures/hazards: No pets and animals: Yes history of recent travel: No Smoking Status: Never smoker second hand exposure: No alcohol intake: current alcohol intake frequency: holidays/special occasions only substance use type: does not use caffeine: Yes what type of physical activity do you participate in: none frequency: 1-2 times per week seatbelt use: always do you feel safe at home: Yes additional social history: History 2 Elective abortions Hx Para 2 Spontaneous abortions Hx # Term Pregnancies Ectopic pregnancies Hx # Pregnancies Multiple births # of living children Past Pregnancies Del. Date Name GA/Weeks Outcome Route Bth Weight Gen Labor Lgth Anesthesia Del Locatn Provider FOB Unknown 2010 Kristyn Unknown 2013 Mike [facility] Encounter for routine gynecological examination Details: JANETTE BARLOW is a 44 year old who presents for annual exam. Continues with off and on breasttenderness but not new complaint. Significant caffeine intake. Same sexual partner. No menses with IUD Last PAP: 2020 History of abnormal PAP: no Last mammogram: 02/2024 History of abnormal mammogram: no Colon cancer screening: age 46 Other preventative health care screenings: Aj Ibarra Constitutional: Denies fatigue, weight gain or weight loss Cardio Card: Denies chest pain Resp Resp: Denies cough or dyspnea on exertion GI GI: Denies abdominal pain, bloating, change in stool character, constipation or vomiting : Reports as per HPI; Denies difficulty voiding, pelvic pain, urinary frequency, urinary incontinence,urinary urgency, vaginal discharge or vaginal pruritus Exam Const General: cooperative, healthy appearing, no acute distress and well developed Orientation: alert, oriented to person and oriented to place HENMT Head: normal to inspection Neck Neck: normal visual inspection Thyroid: thyroid normal Lymphatic: no lymphadenopathy noted Chest Breast inspection: normal inspection of the breasts and normal inspection of theaxillae Breast palpation: normal palpation of the breasts, normal palpation of the axillae and no axillary lymphadenopathy Resp Effort & Inspection: normal respiratory effort GI Palpation: soft, no masses and nontender Rectal Exam: deferred External Female Exam: normal external appearance and normal appearance of the urethra Urethra: normal appearance of the urethra and normal palpation Speculum Exam - Vagina: normal appearance of the vagina and normal vaginal discharge Speculum Exam - Cervix: normal appearance of the cervix (iud strings noted 3cm from os) Bimanual Exam- Vagina & Uterus: normal bimanual exam, uterine size normal, uterine shape normaland non-tender Bimanual Exam- Adnexa, other: normal adnexae, no masses, normal and non-tender Pelvic Support: normal Neuro General: patient alert and patient oriented x3 Psych Affect: normal affect Coding Level of Care Code Off vis,est,prev 40-64yrs Diagnoses Encounter for gynecological examination without abnormal finding Z01.419 Gynecological examination findings: abnormal findings ABSENT Assessment and Plan Assessment and Plan (1) Encounter for routine gynecological examination: Qualifiers: Gynecological examination findings: abnormal findings ABSENT Qualified Code(s): Z01.419 - Encounterfor gynecological examination (general) (routine) without abnormal findings Orders: Orders SCRN MAMM (CAD)W/KAYLAN BILAT Today Z12.39 - Encounter for other screening for malignant neoplasm of breast Plan Completed breast and pelvic exam Reviewed diet and exercise Pap 2020 Mammogram ordered breast self exam encouraged monthly Contraception mirena IUD Consider trying Vit E oral supplement daily and decrease caffeine intake for breast tenderness RTO 1 year, prn with problems Kesha Mallory ROLL RECLAIMER 03/15/25 1335 s ENGINE LATHE SET UP OPERATOR ENGINE LATHE SET UP OPERATOR-C> Date _ Kesha Mallory ENGINE LATHE SET UP OPERATOR ENGINE LATHE SET UP OPERATOR-C Cosigner Signature: Date (if applicable) CC: ~ [facility]07-11-2024 Hospital Discharge instructions Patient Education 04/02/2024 13:02:26 How to Use an Incentive Spirometer How To Use an Incentive Spirometer An incentive spirometer is a tool that measures how well you are filling your lungs with each breath. Learning to take long, deep breaths using this tool can help you keep your lungs clear and active. This may help to reverse or lessen your chance of developing breathing (pulmonary) problems, especially infection. You may be asked to use a spirometer: After a surgery. If you have a lung problem or a history of smoking. After a long period of time when you have been unable to move or be active. If the spirometer includes an indicator to show the highest number that you have reached, your health care provider or respiratory therapist will help you set a goal. Keep a list (log) of your progress as told by your health care provider. What are the risks? Breathing too quickly may cause dizziness or cause you to pass out. Take your time so you do not get dizzy or light-headed. If you are in pain, you may need to take pain medicine before doing incentive spirometry. It is harder to take a deep breath if you are having pain. How to use your incentive spirometer 1.Sit up on the edge of your bed or on a chair. 2.Hold the incentive spirometer so that it is in an upright position. 3.Before you use the spirometer, breathe out normally. 4.Place the mouthpiece in your mouth. Make sure your lips are closed tightly around it. 5.Breathe in slowly and as deeply as you can through your mouth, causing the piston or the ball to rise toward the top of the chamber. 6.Hold your breath for 3 5 seconds, or for as long as possible. If the spirometer includes a swim coach indicator, use this to guide you in breathing. Slow down your breathing if the indicator goes above the marked areas. 7.Remove the mouthpiece from your mouth and breathe out normally. The piston or ball will return tothe bottom of the chamber. 8.Rest for a few seconds, then repeat the steps 10 or more times. Take your time and take a few normal breaths between deep breaths so that you do not get dizzy or light-headed. Do this every 1 2 hours when you are awake. 9.If the spirometer includes a goal marker to show the highest number you have reached (best effort), use this as a goal to work toward during each repetition. 10.After each set of 10 deep breaths, cough a few times. This will help to make sure that your lungs are clear. If you have an incision on your chest or abdomen from surgery, place a pillow or a rolled-up towel firmly against the incision when you cough. This can help to reduce pain from coughing. General tips When you become able to get out of bed, walk around often and continue to cough to help clear your lungs. Keep using the incentive spirometer until your health care provider says it is okay to stop using it. If you have been in the hospital, you may be told to keep using the spirometer at home. Contact a health care provider if: You are having difficulty using the spirometer. You have trouble using the spirometer as often as instructed. Your pain medicine is not giving enough relief for you to use the spirometer as told. You have a fever. You develop shortness of breath. Get help right away if: You develop a cough with bloody mucus from the lungs (bloody sputum). You have fluid or blood coming from an incision site after you cough. Summary An incentive spirometer is a tool that can help you learn to take long, deep breaths to keep your lungs clear and active. You may be asked to use a spirometer after a surgery, if you have a lung problem or a history of smoking, or if you have been inactive for a long period of time. Use your incentive spirometer as instructed every 1 2 hours while you are awake. If you have an incision on your chest or abdomen, place a pillow or a rolled-up towel firmly against your incision when you cough. This will help to reduce pain. This information is not intended to replace advice given to you by your health care provider. Make sure you discuss any questions you have with your health care provider. Document Released: 01/20/2008 Document Revised: 10/02/2018 Document Reviewed: 07/23/2018 [employer] Patient Education 2020 [employer]. 04/02/2024 13:00:07 General Anesthesia, Adult, Care After General Anesthesia, Adult, Care After This sheet gives you information about how to care for yourself after your procedure. Your health care provider may also give you more specific instructions. If you have problems or questions, contact your health care provider. What can I expect after the procedure? After the procedure, the following side effects are common: Pain or discomfort at the IV site. Nausea. Vomiting. Sore throat. Trouble concentrating. Feeling cold or chills. Weak or tired. Sleepiness and fatigue. Soreness and body aches. These side effects can affect parts of the body that were not involved in surgery. Follow these instructions at home: For at least 24 hours after the procedure: Have a responsible adult stay with you. It is important to have someone help care for you until youare awake and alert. Rest as needed. Do not: ?Participate in activities in which you could fall or become injured. ?Drive. ?Use heavy machinery. ?Drink alcohol. ?Take sleeping pills or medicines that cause drowsiness. ?Make important decisions or sign legal documents. ?Take care of children on your own. Eating and drinking Follow any instructions from your health care provider about eating or drinking restrictions. When you feel hungry, start by eating small amounts of foods that are soft and easy to digest (bland), such as toast. Gradually return to your regular diet. Drink enough fluid to keep your urine pale yellow. If you vomit, rehydrate by drinking water, juice, or clear broth. General instructions If you have sleep apnea, surgery and certain medicines can increase your risk for breathing problems. Follow instructions from your health care provider about wearing your sleep device: ?Anytime you are sleeping, including during daytime naps. ?While taking prescription pain medicines, sleeping medicines, or medicines that make you drowsy. Return to your normal activities as told by your health care provider. Ask your health care provider what activities are safe for you. Take jrbq-kwl-pqjuqpj and prescription medicines only as told by your health care provider. If you smoke, do not smoke without supervision. Keep all follow-up visits as told by your health care provider. This is important. Contact a health care provider if: You have nausea or vomiting that does not get better with medicine. You cannot eat or drink without vomiting. You have pain that does not get better with medicine. You are unable to pass urine. You develop a skin rash. You have a fever. You have redness around your IV site that gets worse. Get help right away if: You have difficulty breathing. You have chest pain. You have blood in your urine or stool, or you vomit blood. Summary After the procedure, it is common to have a sore throat or nausea. It is also common to feel tired. Have a responsible adult stay with you for the first 24 hours after general anesthesia. It is important to have someone help care for you until you are awake and alert. When you feel hungry, start by eating small amounts of foods that are soft and easy to digest (bland), such as toast. Gradually return to your regular diet. Drink enough fluid to keep your urine pale yellow. Return to your normal activities as told by your health care provider. Ask your health care provider what activities are safe for you. This information is not intended to replace advice given to you by your health care provider. Make sure you discuss any questions you have with your health care provider. Document Released: 12/16/2001 Document Revised: 09/12/2018 Document Reviewed: 04/25/2018 [employer] Patient Education 2020 [employer]. 04/02/2024 12:59:58 Surgical Procedures for Hemorrhoids, Care After Surgical Procedures for Hemorrhoids, Care After This sheet gives you information about how to care for yourself after your procedure. Your health care provider may also give you more specific instructions. If you have problems or questions, contact your health care provider. What can I expect after the procedure? After the procedure, it is common to have: Rectal pain. Pain when you are having a bowel movement. Slight rectal bleeding. This is more likely to happen with the first bowel movement after surgery. Follow these instructions at home: Medicines Take xxlo-mba-ewwljjy and prescription medicines only as told by your health care provider. If you were prescribed an antibiotic medicine, use it as told by your health care provider. Do not stop using the antibiotic even if your condition improves. Ask your health care provider if the medicine prescribed to you requires you to avoid driving or using heavy machinery. Use a stool softener or a bulk laxative as told by your health care provider. Eating and drinking Follow instructions from your health care provider about what to eat or drink after your procedure. You may need to take actions to prevent or treat constipation, such as: ?Drink enough fluid to keep your urine pale yellow. ?Take oikk-fhb-fyoxhqw or prescription medicines. ?Eat foods that are high in fiber, such as beans, whole grains, and fresh fruits and vegetables. ?Limit foods that are high in fat and processed sugars, such as fried or sweet foods. Activity Rest as told by your health care provider. Avoid sitting for a long time without moving. Get up to take short walks every 1 2 hours. This is important to improve blood flow and breathing. Ask for help if you feel weak or unsteady. Return to your normal activities as told by your health care provider. Ask your health care provider what activities are safe for you. Do not lift anything that is heavier than 10 lb (4.5 kg), or the limit that you are told, until your health care provider says that it is safe. Do not strain to have a bowel movement. Do not spend a long time sitting on the toilet. General instructions Take warm sitz baths for 15 20 minutes, 2 3 times a day to relieve soreness or itching and to keep the rectal area clean. Apply ice packs to the area to reduce swelling and pain. Do not drive for 24 hours if you were given a sedative during your procedure. Keep all follow-up visits as told by your health care provider. This is important. Contact a health care provider if: Your pain medicine is not helping. You have a fever or chills. You have bad smelling drainage. You have a lot of swelling. You become constipated. You have trouble passing urine. Get help right away if: You have very bad rectal pain. You have heavy bleeding from your rectum. Summary After the procedure, it is common to have pain and slight rectal bleeding. Take warm sitz baths for 15 20 minutes, 2 3 times a day to relieve soreness or itching and to keep the rectal area clean. Avoid straining when having a bowel movement. Eat foods that are high in fiber, such as beans, whole grains, and fresh fruits and vegetables. Take zllc-yti-fdgusco and prescription medicines only as told by your health care provider. This information is not intended to replace advice given to you by your health care provider. Make sure you discuss any questions you have with your health care provider. Document Released: 11/29/2004 Document Revised: 02/24/2020 Document Reviewed: 07/28/2019 [employer] Patient Education 2020 [employer]. Follow Up Care 03/24/2024 13:55:51 With:PAIGE GIBSON Address: [address] [place] [phone] Business (1) When:Within 2 Week(s) [facility] 07-11-2024 Summary of episode note Discharge Instructions Thank you for allowing [facility] to assist you with your healthcare needs. The following is importantdischarge information regarding your hospital visit. Your Care Team DENIZ MELCHOR MD Your Diagnosis Acute post-operative pain What to do next Scheduled Follow-Up Appointments Appointment Type When With Where Contact Information StatusPC OV 04/07/2024 11:30 AM EDT DENIZ MELCHOR MD [address] [phone] Confirmed GS OV Post Op 04/16/2024 03:00 PM PAIGE ABEBE MD [facility] Confirmed Follow Up Appointments Follow Up with PAIGE GIBSON When:In 2 weeks Where:[address] [place] [phone] Business (1) The Following Activity and Diet Have Been Ordered for You Discharge Activity - Ordered -- Sexual [place] Restricted No bending, twisting, crawling or squatt, No shower or tub bath for 2 days; no driving for 5 days, no lifting >15 lbs, 04/02/24 12:11:00 EDT Discharge Diet - Ordered -- Follow the post-operative/post-procedure diet instructions provided by your physician's office.,04/02/24 12:11:00 EDT The Following Equipment Has Been Ordered for You Discharge Home Equipment Discharge Wound Care - Ordered -- Dressing Type: Dry sterile drsg, Remove dressing in two (2) days. Leave steristrips on until they fall off, 04/02/24 12:11:00 EDT Allergies Imitrex(Severe) Anaphylaxis ProAir HFA Rapid pulse, Dizzy Medications Please ask your primary doctor or pharmacist before taking any other medication not listed, including over the counter drugs, herbal medications, vitamins and or supplements as they may interact withyour home medications. What How Much When Why Instructions Last Dose New acetaminophen-hydrocodone ([place] 325- 5 mg oral tablet) 1 tab(s) by mouth Every 4 hours as needed for Pain, scale 1-6 Acute post-operative pain Duration: 7 Days Pickup at [facility]/pharmacy #[id number] Unchanged acetaminophen (acetaminophen 325 mg oral capsule) 1 cap by mouth Every 4 hours as needed for as needed for pain Unchanged APAP/ butalbital/ caffeine (APAP/ butalbital/ caffeine 325-50-40 mg oral tablet (Fioricet)) 2 tab(s) by mouth Every 4 hours as needed for as needed Not to exceed 6 tablets/ day. To replace previously sent Rx. Unchanged fluticasone nasal (Flonase 50 mcg/ inh nasal spray) Once a day as needed for Allergy symptoms Unchanged ibuprofen 200 Milligram Unchanged ketoconazole topical (ketoconazole 2% topical shampoo) 1 application Topical Once as needed for as needed Unchanged meclizine (meclizine 12.5 mg oral tablet) 1 tab(s) by mouth Three (3) times a day as needed for as needed for dizziness Unchanged multivitamin (Multivitamin) 1 tab(s) by mouth Every day Unchanged psyllium (Metamucil 520 mg oral capsule) 5 cap by mouth Two (2) times a day as needed for for constipation Unchanged sertraline (sertraline 50 mg oral tablet) 1 tab(s) by mouth Every day Duration: 90 Days Pharmacy Information [facility]/pharmacy #[id number]: [address], [place] [phone] Please take this list to your next doctor s visit. Bring all medications you take, including over the counter medications, herbals and other supplements with you to your doctor s visit. Patients and families are reminded to discard old lists and to update any records with all medication providers or retail pharmacies. Education Materials How To Use an Incentive Spirometer An incentive spirometer is a tool that measures how well you are filling your lungs with each breath. Learning to take long, deep breaths using this tool can help you keep your lungs clear and active. This may help to reverse or lessen your chance of developing breathing (pulmonary) problems, especially infection. You may be asked to use a spirometer: After a surgery. If you have a lung problem or a history of smoking. After a long period of time when you have been unable to move or be active. If the spirometer includes an indicator to show the highest number that you have reached, your health care provider or respiratory therapist will help you set a goal. Keep a list (log) of your progress as told by your health care provider. What are the risks? Breathing too quickly may cause dizziness or cause you to pass out. Take your time so you do not get dizzy or light-headed. If you are in pain, you may need to take pain medicine before doing incentive spirometry. It is harder to take a deep breath if you are having pain. How to use your incentive spirometer 1. Sit up on the edge of your bed or on a chair. 2. Hold the incentive spirometer so that it is in an upright position. 3. Before you use the spirometer, breathe out normally. 4. Place the mouthpiece in your mouth. Make sure your lips are closed tightly around it. 5. Breathe in slowly and as deeply as you can through your mouth, causing the piston or the ball to rise toward the top of the chamber. 6. Hold your breath for 3 5 seconds, or for as long as possible. If the spirometer includes a swim coach indicator, use this to guide you in breathing. Slow down your breathing if the indicator goes above the marked areas. 7. Remove the mouthpiece from your mouth and breathe out normally. The piston or ball will return to the bottom of the chamber. 8. Rest for a few seconds, then repeat the steps 10 or more times. Take your time and take a few normal breaths between deep breaths so that you do not get dizzy or light-headed. Do this every 1 2 hours when you are awake. 9. If the spirometer includes a goal marker to show the highest number you have reached (best effort),use this as a goal to work toward during each repetition. 10. After each set of 10 deep breaths, cough a few times. This will help to make sure that your lungs are clear. If you have an incision on your chest or abdomen from surgery, place a pillow or a rolled-up towel firmly against the incision when you cough. This can help to reduce pain from coughing. General tips When you become able to get out of bed, walk around often and continue to cough to help clear your lungs. Keep using the incentive spirometer until your health care provider says it is okay to stop using it. If you have been in the hospital, you may be told to keep using the spirometer at home. Contact a health care provider if: You are having difficulty using the spirometer. You have trouble using the spirometer as often as instructed. Your pain medicine is not giving enough relief for you to use the spirometer as told. You have a fever. You develop shortness of breath. Get help right away if: You develop a cough with bloody mucus from the lungs (bloody sputum). You have fluid or blood coming from an incision site after you cough. Summary An incentive spirometer is a tool that can help you learn to take long, deep breaths to keep your lungs clear and active. You may be asked to use a spirometer after a surgery, if you have a lung problem or a history of smoking, or if you have been inactive for a long period of time. Use your incentive spirometer as instructed every 1 2 hours while you are awake. If you have an incision on your chest or abdomen, place a pillow or a rolled-up towel firmly against your incision when you cough. This will help to reduce pain. This information is not intended to replace advice given to you by your health care provider. Make sure you discuss any questions you have with your health care provider. Document Released: 01/20/2008 Document Revised: 10/02/2018 Document Reviewed: 07/23/2018 [employer] Patient Education 2020 [employer] General Anesthesia, Adult, Care After This sheet gives you information about how to care for yourself after your procedure. Your health care provider may also give you more specific instructions. If you have problems or questions, contact your health care provider. What can I expect after the procedure? After the procedure, the following side effects are common: Pain or discomfort at the IV site. Nausea. Vomiting. Sore throat. Trouble concentrating. Feeling cold or chills. Weak or tired. Sleepiness and fatigue. Soreness and body aches. These side effects can affect parts of the body that were not involved in surgery. Follow these instructions at home: For at least 24 hours after the procedure: Have a responsible adult stay with you. It is important to have someone help care for you until youare awake and alert. Rest as needed. Do not: ? Participate in activities in which you could fall or become injured. ? Drive. ? Use heavy machinery. ? Drink alcohol. ? Take sleeping pills or medicines that cause drowsiness. ? Make important decisions or sign legal documents. ? Take care of children on your own. Eating and drinking Follow any instructions from your health care provider about eating or drinking restrictions. When you feel hungry, start by eating small amounts of foods that are soft and easy to digest (bland), such as toast. Gradually return to your regular diet. Drink enough fluid to keep your urine pale yellow. If you vomit, rehydrate by drinking water, juice, or clear broth. General instructions If you have sleep apnea, surgery and certain medicines can increase your risk for breathing problems. Follow instructions from your health care provider about wearing your sleep device: ? Anytime you are sleeping, including during daytime naps. ? While taking prescription pain medicines, sleeping medicines, or medicines that make you drowsy. Return to your normal activities as told by your health care provider. Ask your health care provider what activities are safe for you. Take okhi-ioy-xxbgjqs and prescription medicines only as told by your health care provider. If you smoke, do not smoke without supervision. Keep all follow-up visits as told by your health care provider. This is important. Contact a health care provider if: You have nausea or vomiting that does not get better with medicine. You cannot eat or drink without vomiting. You have pain that does not get better with medicine. You are unable to pass urine. You develop a skin rash. You have a fever. You have redness around your IV site that gets worse. Get help right away if: You have difficulty breathing. You have chest pain. You have blood in your urine or stool, or you vomit blood. Summary After the procedure, it is common to have a sore throat or nausea. It is also common to feel tired. Have a responsible adult stay with you for the first 24 hours after general anesthesia. It is important to have someone help care for you until you are awake and alert. When you feel hungry, start by eating small amounts of foods that are soft and easy to digest (bland), such as toast. Gradually return to your regular diet. Drink enough fluid to keep your urine pale yellow. Return to your normal activities as told by your health care provider. Ask your health care provider what activities are safe for you. This information is not intended to replace advice given to you by your health care provider. Make sure you discuss any questions you have with your health care provider. Document Released: 12/16/2001 Document Revised: 09/12/2018 Document Reviewed: 04/25/2018 [employer] Patient Education 2020 [employer] Surgical Procedures for Hemorrhoids, Care After This sheet gives you information about how to care for yourself after your procedure. Your health care provider may also give you more specific instructions. If you have problems or questions, contact your health care provider. What can I expect after the procedure? After the procedure, it is common to have: Rectal pain. Pain when you are having a bowel movement. Slight rectal bleeding. This is more likely to happen with the first bowel movement after surgery. Follow these instructions at home: Medicines Take dpct-tur-lwlgeju and prescription medicines only as told by your health care provider. If you were prescribed an antibiotic medicine, use it as told by your health care provider. Do not stop using the antibiotic even if your condition improves. Ask your health care provider if the medicine prescribed to you requires you to avoid driving or using heavy machinery. Use a stool softener or a bulk laxative as told by your health care provider. Eating and drinking Follow instructions from your health care provider about what to eat or drink after your procedure. You may need to take actions to prevent or treat constipation, such as: ? Drink enough fluid to keep your urine pale yellow. ? Take skct-nya-sgdaioj or prescription medicines. ? Eat foods that are high in fiber, such as beans, whole grains, and fresh fruits and vegetables. ? Limit foods that are high in fat and processed sugars, such as fried or sweet foods. Activity Rest as told by your health care provider. Avoid sitting for a long time without moving. Get up to take short walks every 1 2 hours. This is important to improve blood flow and breathing. Ask for help if you feel weak or unsteady. Return to your normal activities as told by your health care provider. Ask your health care provider what activities are safe for you. Do not lift anything that is heavier than 10 lb (4.5 kg), or the limit that you are told, until your health care provider says that it is safe. Do not strain to have a bowel movement. Do not spend a long time sitting on the toilet. General instructions Take warm sitz baths for 15 20 minutes, 2 3 times a day to relieve soreness or itching and to keep the rectal area clean. Apply ice packs to the area to reduce swelling and pain. Do not drive for 24 hours if you were given a sedative during your procedure. Keep all follow-up visits as told by your health care provider. This is important. Contact a health care provider if: Your pain medicine is not helping. You have a fever or chills. You have bad smelling drainage. You have a lot of swelling. You become constipated. You have trouble passing urine. Get help right away if: You have very bad rectal pain. You have heavy bleeding from your rectum. Summary After the procedure, it is common to have pain and slight rectal bleeding. Take warm sitz baths for 15 20 minutes, 2 3 times a day to relieve soreness or itching and to keep the rectal area clean. Avoid straining when having a bowel movement. Eat foods that are high in fiber, such as beans, whole grains, and fresh fruits and vegetables. Take uipr-zbe-kzsdjgp and prescription medicines only as told by your health care provider. This information is not intended to replace advice given to you by your health care provider. Make sure you discuss any questions you have with your health care provider. Document Released: 11/29/2004 Document Revised: 02/24/2020 Document Reviewed: 07/28/2019 [employer] Patient Education 2020 [employer]. Signatures Patient Education Materials How to Use an Incentive Spirometer General Anesthesia, Adult, Care After Surgical Procedures for Hemorrhoids, Care After Medication Leaflets My discharge plan and instructions have been reviewed and explained to me and I,JANETTE BARLOW I understand my current condition and have read and understand these discharge instructions. I have received a written copy of the plan/instructions. If I have questions, I am aware that I should contact my doctor. Patient/Inside Sales Agent Signature: Date/Time: Relationship to Patient: Witness Name/Signature: Date/Time: [facility]07-11-2024 Anesthesiology Consult note Patient: JANETTE BARLOW I Age: 43 years Sex: Female : 1980 Associated Diagnoses: None Author: URBANO MARROQUIN APRN-TOMI Preoperative Information Time of last food or liquid consumption: 04/01/2024 23:59:00 Anesthesia history Patient's history: negative. Family's history: negative. Review of Systems Ear/Nose/Mouth/Throat: Negative except as documented in history of present illness. Respiratory: Negative except as documented in history of present illness. Cardiovascular: Negative except as documented in history of present illness. Gastrointestinal: Negative except as documented in history of present illness. Genitourinary: Negative except as documented in history of present illness. Endocrine: Negative except as documented in history of present illness. Musculoskeletal: Negative except as documented in history of present illness. Integumentary: Negative except as documented in history of present illness. Neurologic: Negative except as documented in history of present illness. Health Status Allergies: Allergic Reactions (Selected) Severe Imitrex- Anaphylaxis. Severity Not Documented ProAir HFA- Rapid pulse and dizzy., Allergies (2) ActiveSeverityReaction ImitrexSevereAnaphylaxis ProAir HFADizzy, Rapid pulse Current medications: (Selected) Inpatient Medications Ordered LR 1000 mL: 20 mL/hr, Intravenous gabapentin: 300 mg, 1 cap(s), Oral, PREOP pharm Prescriptions Prescribed APAP/butalbital/caffeine 325-50-40 mg oral tablet (Fioricet): 2 tab(s), Oral, q4h, Not to exceed 6 tablets/day. To replace previously sent Rx., PRN: as needed, 30 tab(s), 0 Refill(s) sertraline 50 mg oral tablet: 50 mg, 1 tab(s), Oral, Daily, for 90 day(s), 90 tab(s), 3 Refill(s) Documented Medications Documented Flonase 50 mcg/inh nasal spray: qDay, PRN: Allergy symptoms, 0 Refill(s) Metamucil 520 mg oral capsule: 5 cap(s), Oral, BID, PRN: for constipation, 0 Refill(s) Multivitamin: 1 tab(s), Oral, Daily, 0 Refill(s) acetaminophen 325 mg oral capsule: 325 mg, 1 cap(s), Oral, q4h, PRN: as needed for pain, 20 cap(s),0 Refill(s) ibuprofen: 200 mg, 0 Refill(s) ketoconazole 2% topical shampoo: 1 quinn, Topical, Once, PRN: as needed, 120 mL, 0 Refill(s) meclizine 12.5 mg oral tablet: 12.5 mg, 1 tab(s), Oral, TID, PRN: as needed for dizziness, 30 tab(s), 0 Refill(s), Medications (2) Active Scheduled: (1) gabapentin 300 mg Capsule 300 mg 1 cap(s), Oral, PREOP pharm Continuous: (1) Lactated Ringers Infusion 1000 mL 1,000 mL, Intravenous, 20 mL/hr PRN: (0) Problem list: Medical Costochondritis / SNOMED CT 0419604145 / Confirmed Depression / SNOMED CT 15074191 / Confirmed Dizziness / SNOMED CT 6031822341 / Confirmed Generalized anxiety disorder / SNOMED CT 05454146 / Confirmed Hemorrhoids / SNOMED CT 812581751 / Confirmed Injury of buttock / SNOMED CT 58059746 / Confirmed IBS (irritable bowel syndrome) / SNOMED CT 46103529 / Confirmed Perianal dermatitis / SNOMED CT 443468280 / Confirmed Pruritus ani / SNOMED CT 118581779 / Confirmed Seasonal allergies / SNOMED CT 8869882531 / Confirmed External thrombosed hemorrhoids / SNOMED CT 43443348 / Confirmed Vertigo / SNOMED CT 3938117727 / Confirmed, Active Problems (14) Asthma Costochondritis Depression Dizziness External thrombosed hemorrhoids Generalized anxiety disorder GERD (gastroesophageal reflux disease) Hemorrhoids IBS (irritable bowel syndrome) Injury of buttock Perianal dermatitis Pruritus ani Seasonal allergies Vertigo Histories Past Medical History: No active or resolved past medical history items have been selected or recorded. Family History: Ulcerative colitis Mother (Mayra Machuca) Irritable bowel syndrome Mother (Mayra Machuca) Parkinson disease Father (Jessica Machuca) Diabetes Father (Jessica Machuca) Procedure history: Cholecystectomy (97185679) in the month of 05/2003 at 23 Years. Colonoscope ([id number]). Comments: 02/21/2024 10:19 EDT - CousinsMonik CMA less than 10 years agp Excision of rib ([id number]). Comments: 02/21/2024 10:21 EDT - CousinMonik howard CMA 1st rib removal Rhinoplasty augmentation with synthetic implant ([id number]). [place] tooth ([id number]). Social History: Social & Psychosocial Habits Alcohol 4Risk Assessment: Denies Alcohol Use 04/02/2024 Use: Current Frequency: 1-2 times per year Employment/School 03/23/2024 Status: Employed Description: Full-time, [employer] Substance Abuse 04/02/2024isk Assessment: Denies Substance Abuse 04/02/2024 Use: Never Tobacco 04/02/2024isk Assessment: Denies Tobacco Use 04/02/2024 Tobacco Use: Never (less than 100 in l, No tobacco/smoke exposure Home/Environment 04/02/2024 Primary Glass Production Machine Operator: Self, lives with her children and her parents Nutrition/Health 04/02/2024 Caffeine intake amount: coffee x 2/day Sexual 04/02/2024isk Assessment: No Risk Physical Examination Vital Signs 04/02/2024 10:17 EDT Temperature Temporal Artery 36.7 DegC Peripheral Pulse Rate 64 bpm Respiratory Rate 16 br/min Systolic Blood Pressure Non-Invasive 108 mmHg Diastolic Blood Pressure Non-Invasive 74 mmHg Vital Signs (last 24 hrs) Last Charted Temp Bkmbzjni09.7 DegC (APR 02 10:17) UIM177 mmHg (APR 02 10:) DBP74 mmHg (APR 02:) Measurements from flowsheet : Measurements 04/02/2024 10:17 EDT Height 162.6 cm Height in inches 64 inch(es) Admission Weight 68.2 kg Weight Lbs 150 lb Coleman Body Weight 54.74 kg Admission Body Mass Index 25.8 m2 Pain assessment: Pain Assessment 04/02/2024 10:17 EDT Primary Pain Intensity 0 Pain Scale Type 0-10 Pain scale . General: Alert and oriented. Airway: Normal neck range of motion. Mallampati classification: II (soft palate, fauces, uvula visible). Head: Normocephalic. Dentition Evaluation: Intact, Own teeth. Neck: Full range of motion. Respiratory: Lungs are clear to auscultation. Cardiovascular: Normal rate. Heart Sounds: Normal. Gastrointestinal: Soft. Musculoskeletal Normal range of motion. Integumentary: Intact, Warm, Dry. Neurologic: Alert, Oriented. Review / Management Results review: No qualifying data available , Lab results 04/02/2024 10:30 EDT Preop Nasal Swab Alcohol based (Nozin) 04/02/2024 10:28 EDT SN - Preop - CTm Pt Ready for OR/Proced 04/02/2024 10:28 04/02/2024 10:25 EDT Hand Left 04/02/2024 20 gauge Peripheral IV Activity: Insert new site Peripheral IV Dressing Condition: Clean, Dry, Intact Peripheral IV Dressing Activity: Transparent dressing Peripheral IV Line Status/Patency: Flushes easily, Continuous infusion Peripheral IV Site Condition: No complications Peripheral IV Equipment: Extension set Peripheral IV Number of Attempts: 1 Lactated Ringers Injection Begin Bag 1,000 mL mL 04/02/2024 10:24 EDT ibuprofen 800 mg mg Dextrose 5% in Water 250 mL mL 04/02/2024 10:17 EDT Height 162.6 cm Height in inches 64 inch(es) Admission Weight 68.2 kg Weight Lbs 150 lb Coleman Body Weight 54.74 kg Admission Body Mass Index 25.8 m2 Temperature Temporal Artery 36.7 DegC Peripheral Pulse Rate 64 bpm Respiratory Rate 16 br/min Systolic Blood Pressure Non-Invasive 108 mmHg Diastolic Blood Pressure Non-Invasive 74 mmHg Primary Pain Intensity 0 Pain Scale Type 0-10 Pain scale Cardiac Rhythm Sinus rhythm Monitoring Lead II Respirations Unlabored Respiratory Pattern Regular Oxygen Therapy Room air Oxygen Saturation 97 % Abdomen Description Non-distended, Symmetric, Soft Abdomen Palpation Non-Tender Bowel Sounds All Quadrants Present Urinary Elimination Voiding, no difficulties Skin Temperature Warm Skin Description Normal for ethnicity Skin Integrity Intact Mucous Membrane Color Kirwin Skin Moisture General Dry IV Present Present Neurological Symptoms Headache Extremity Movement Equal Characteristics of Speech Clear Level of Consciousness Alert SPENCER Yes Strength All Extremities Strong Affect/Behavior Appropriate, Calm, Cooperative Orientation Oriented x 4 Allergies Yes Anesthesia Extension Set Applied Yes Healthcare Associate On Yes Consent Form Signed Yes Patient Dressed In Hospital gown, No undergarments Pre-op Preparation Glasses removed CHG Preoperative Wash/Wipe Night before procedure, Day of procedure CHG Skin Prep Completed for Eligible Surgery History & Physical On Chart Yes Obstructive Sleep Apnea Assess Completed Yes Loraine Motor (2) Moves 4 extremities voluntarily or on command Loraine Respirations (2) Spontaneous respiration without support, RR > 10 Loraine Blood Pressure (2) BP 20% above or below preanesthetic level Loraine Pulse (2) Pulse 20% above or below preanesthetic level Loraine Oxygen Saturation (2) 94% or more Loraine Level of Consciousness (2) Fully awake Loraine III Score 12 Belongings At Bedside Cell phone, Glasses, Pants, Shirt, Shoes, Socks, Tablet computer, Undergarments Activity Status ADL Awake NPO Status Maintained Standard Safety ID band on, Allergy Band on, Call device within reach, Bed in low position, Wheels locked, Safety level maintained Demonstrates Correct Call Light Use Yes Allergy Band on and Verified Yes Patient ID Band on and Verified Yes Implants Verified Yes Pacemaker/AICD Verified Yes Site Verified by Patient/Family Yes Blood Consent Signed Yes Last Fluid Intake 04/01/2024 23:59 Last Food Intake 04/01/2024 23:59 04/02/2024 10:15 EDT Designated Person #1 We May Share NIKKI BARLOW [phone] Designated Person #1 Relationship Mother Designated Person #2 We May Share NIKKI BARLOW [phone] Designated Person #2 Relationship Father Privacy Restrictions Requested None Status No, per patient Sensory Deficits None Sleep Apnea Snore No Sleep Apnea Tired Yes Sleep Apnea Obstruction No Sleep Apnea Pressure No Sleep Apnea BMI No Sleep Apnea Age No Sleep Apnea Neck No Sleep Apnea Gender No Sleep Apnea Score 1 Diagnosed With Sleep Apnea No Advanced Directives No - refuses information Infectious Disease Symptoms Patient states no symptoms Infectious Disease Recent Exposure No Alcohol and Drug Use No Employee of Institutional Living No Health Care Employee No History of Exposure to TB No History of Positive Chest X-Ray for TB No History of Positive TB Skin Test No Homeless No Known Immunosuppression No Recent Immigrant No Resident of Institutional Living No Bloody Sputum No Fatigue No Fever No Loss of Appetite No Night Sweats No Persistent Cough > 3 Weeks No Weight Loss No Patient Aware Date/Time Of Surgery Yes Pre-Op Patient Education NPO after midnight, No makeup, No jewelry, Responsible Republican, Aware of surgery location, Pre-op education done, 1 bottle CHG wash with instructions given, No ordered medications, SSI prevention handout given SN - Preprocedure Comments Spoke with patient, Verbalizes/Nonverbally indicates understanding Barriers to Learning None evident Teaching Method Explanation Preferred Spoken Language Grenadian Preferred Written Language Grenadian Teaching Evaluation Verbalizes/Nonverbally indicates understanding Safety Brochure Information Reviewed Yes [facility] Video Viewed No Information Given by Patient Patient's Current Physicians dr melchor - pcp Discharge To, Anticipated Home independently Prev Test Positive/Diagnosis w/COVID-19 No Current Quarantine/Isolated any Illness No Any Contact with Sick Animals/Birds No Traveled Anywhere in Last 30 Days Yes Travel Where Within [facility](s) [place] Lost Weight Unintentionally Recently No Eat Poorly Due to Decreased Appetite No Total MST Score 0 No Personal Devices, Patient Valuables Contact lenses, Glasses Anesthesia/Transfusions Prior anesthesia Admission Note-Nursing Same Day Patient History 04/02/2024 10:08 EDT SN - Preop - CTm Pt in SDS Room 04/02/2024 10:06 04/02/2024 10:08 EDT Test Urine Negative test (u) int test (u) int QC PRGUN Negative QC PRGUP Positive . Assessment and Plan [place] [employer] Anesthesiologists (ASA) physical status classification: Class II. Anesthetic Preoperative Plan Premedication: intravenous. Anesthetic technique: General. Induction: intravenously. Maintenance airway: Laryngeal mask airway. Postoperative pain management: Per surgeon. Risks discussed: nausea, vomiting, headache, sore throat, dental injury, hypotension, allergic reaction, serious complications. Informed consent: signed by patient. Digitally Signed by URBANO MARROQUIN on 04/02/2024 10:[address] AM [address]04-2024 Note ORIGINAL EXAMINATION: MRI OF THE LEFT HIP WITHOUT CONTRAST 02/25/2024 9:58 am TECHNIQUE: Multiplanar multisequence MRI of the hip was performed without the administration of intravenous contrast. COMPARISON: Left hip radiographs 01/09/2024 HISTORY: ORDERING SYSTEM PROVIDED HISTORY: Reason for Exam: soft tissue injury FINDINGS: There is no bone marrow edema or acute fracture. The cartilage appears intact. There is no joint effusion and there are no bursal fluid collections. There is no evidence of labral tear. Muscle signal and volume is normal. There is no tendon tear. IMPRESSION: Unremarkable left hip. Interpreted by: Ty Marinelli Preliminary Report By: Ty Marinelli Electronically signed By Ty Marinelli Dictated Date: 02/25/2024 11:48:57 AM Prelim Date: 02/25/2024 11:52:34 AM Sign Date: 02/25/2024 11:52:34 AM Ordering [facility] Future Appointments Appointment Date:02/24/2024 03:00:00 PM Scheduled Provider:PAIGE GIBSON MD Location:[facility] Appointment Type:GS ENGINE LATHE SET UP OPERATOR Future Scheduled Tests Radiology* CT Hip w/ Contrast Left 01/06/24 [facility] Evaluation + Plan note Future Appointments Appointment Date:03/23/2024 03:40:00 PM Scheduled Provider:PAIGE GIBSON MD Location:[facility] Appointment Type:GS OV Follow Up Future Scheduled Tests Radiology* CT Hip w/ Contrast Left 01/06/24 [facility] Evaluation + Plan note Future Appointments Appointment Date:04/07/2024 11:30:00 AM Scheduled Provider:DENIZ MELCHOR MD Location:[facility] Appointment Type:PC OV Appointment Date:04/16/2024 03:00:00 PM Scheduled Provider:PAIGE GIBSON MD Location:[facility] Appointment Type:GS OV Post Op Future Scheduled Tests Radiology* CT Hip w/ Contrast Left 01/06/24 [facility] Evaluation noteNo assessment information available [facility] Work Phone: Evaluation note* Diagnosis Onset Date Resolution Status Encounter for routine gynecological examination noneactive Skin tag of female perineum noneactive [facility] Work Phone: Evaluation note* Diagnosis Onset Date Resolution Status Encounter for routine gynecological examination noneactive [facility] Work Phone: Evaluation note* Diagnosis Onset Date Resolution Status Admit Date Encounter for routine gynecological examination noneactive February 222024 1:16pm [facility] Work Phone: Hospital course Narrative No data available for this section [facility] Hospital Discharge instructions No data available for this section [facility] Progress note No data available for this section [facility] Progrbep note Author Kesha Mallory [facility] Note Date/Time March 15, 2025 1:35 pm [facility] [address], [address] [place] [address] OFFICE VISIT Date of Service: 03/15/25 MR#: [id number] Acct: [id number] Name: JANETTE BARLOW Rep #: [id number] : 1980 Provider: CORNELIUS Mallory Age/Sex: 44/F Location: [facility] [facility] Status: Signed Intake Vital Signs 04/28/24 14:45 03/15/25 13:19 03/15/25 13:23 Height 5 ft 3 in 5 ft 3 in 5 ft 3 in Weight: 165 lb 6 oz BMI 29.2 BP 120/70 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 Is patient in pain?: No Allergies albuterol (From ProAir HFA) Allergy (Mild, Verified 03/15/25 13:18) rapid heartrate poison bea extract (Poison Bea Extract) Allergy (Verified 03/15/25 13:18) Hives sumatriptan (From Imitrex) Allergy (Verified 03/15/25 13:18) Anaphylaxis sumatriptan succinate (From Imitrex) Allergy (Verified 03/15/25 13:18) Anaphylaxis Medications ?Medication ?Instructions ?Recorded ?Confirmed ?Type acetaminophen 325 mg capsule 325 mg PO ONCE PRN 03/15/25 History sertraline 50 mg tablet (Zoloft) 50 mg PO DAILY 03/15/25 History fluticasone propionate 50 1 spray intranasal DAILY 03/15/25 History mcg/actuation nasal spray,suspension (Flonase Allergy Relief) multivitamin with minerals 1 tablet PO DAILY 12/06/20 03/15/25 History (Hair,Skin and Nails tablet) meclizine 12.5 mg tablet 12.5 mg PO DAILY PRN 2 03/15/25 History levonorgestrel (Mirena) 1 device intrauterine ONCE 0 03/16/24 03/15/25 History prednisone 5 mg tablets in a dose 5 mg PO DIRECTED 04/28/24 03/15/25 History pack tizanidine 2 mg capsule (Zanaflex) 2 mg PO Q8H PRN 03/15/25 History Is last menstrual period known: No Post menopausal: No Patient : No : No Nurse's Note: No menses with IUD. 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 current occupational exposures/hazards: No pets and animals: Yes history of recent travel: No Smoking Status: Never smoker second hand exposure: No alcohol intake: current alcohol intake frequency: holidays/special occasions only substance use type: does not use caffeine: Yes what type of physical activity do you participate in: none frequency: 1-2 times per week seatbelt use: always do you feel safe at home: Yes additional social history: History 2 Elective abortions Hx Para 2 Spontaneous abortions Hx # Term Pregnancies Ectopic pregnancies Hx # Pregnancies Multiple births # of living children Past Pregnancies Del. Date Name GA/Weeks Outcome Route Bth Weight Gen Labor Lgth Anesthesia Del Locatn Provider FOB Unknown 2010 Kristyn Unknown 2013 Mike HPI Encounter for routine gynecological examination Details: JANETTE BARLOW is a 44 year old who presents for annual exam. Continues with off and on breast tenderness but not new complaint. Significant caffeine intake. Same sexual partner. No menses with IUD Last PAP: 2020 History of abnormal PAP: no Last mammogram: 02/2024 History of abnormal mammogram: no Colon cancer screening: age 46 Other preventative health care screenings: Aj Ibarra Constitutional: Denies fatigue, weight gain or weight loss Cardio Card: Denies chest pain Resp Resp: Denies cough or dyspnea on exertion GI GI: Denies abdominal pain, bloating, change in stool character, constipation or vomiting : Reports as per HPI; Denies difficulty voiding, pelvic pain, urinary frequency, urinary incontinence,urinary urgency, vaginal discharge or vaginal pruritus Exam Const General: cooperative, healthy appearing, no acute distress and well developed Orientation: alert, oriented to person and oriented to place HENIN Head: normal to inspection Neck Neck: normal visual inspection Thyroid: thyroid normal Lymphatic: no lymphadenopathy noted Chest Breast inspection: normal inspection of the breasts and normal inspection of theaxillae Breast palpation: normal palpation of the breasts, normal palpation of the axillae and no axillary lymphadenopathy Resp Effort & Inspection: normal respiratory effort GI Palpation: soft, no masses and nontender Rectal Exam: deferred External Female Exam: normal external appearance and normal appearance of the urethra Urethra: normal appearance of the urethra and normal palpation Speculum Exam - Vagina: normal appearance of the vagina and normal vaginal discharge Speculum Exam - Cervix: normal appearance of the cervix (iud strings noted 3cm from os) Bimanual Exam- Vagina & Uterus: normal bimanual exam, uterine size normal, uterine shape normal and non-tender Bimanual Exam- Adnexa, other: normal adnexae, no masses, normal and non-tender Pelvic Support: normal Neuro General: patient alert and patient oriented x3 Psych Affect: normal affect Coding Level of Care Code Off vis,est,prev 40-64yrs Diagnoses Encounter for gynecological examination without abnormal finding Z01.419 Gynecological examination findings: abnormal findings ABSENT Assessment and Plan Assessment and Plan (1) Encounter for routine gynecological examination: Qualifiers: Gynecological examination findings: abnormal findings ABSENT Qualified Code(s): Z01.419 - Encounter for gynecological examination (general) (routine) without abnormal findings Orders: Orders SCRN MAMM (CAD)W/KAYLAN BILAT Today Z12.39 - Encounter for other screening for malignant neoplasm of breast Plan Completed breast and pelvic exam Reviewed diet and exercise Pap 2020 Mammogram ordered breast self exam encouraged monthly Contraception mirena IUD Consider trying Vit E oral supplement daily and decrease caffeine intake for breast tenderness RTO 1 year, prn with problems Kesha Mallory ROLL RECLAIMER 03/15/25 1335 <Electronically signed by Kesha howard ENGINE LATHE SET UP OPERATOR ENGINE LATHE SET UP OPERATOR-C> Date _ Kesha Mallory ENGINE LATHE SET UP OPERATOR ENGINE LATHE SET UP OPERATOR-C Cosigner Signature: Date (if applicable) CC: ~ [facility] Work Phone: Reason for referral (narrative)No reason for referral information availableBlProvidence [facility] Work Phone: Summary Purpose Family History Relationship Condition Age at Onset Recorded Date/T edison father Cardiac disease Unknown Diabetes mellitus Unknown grandmother Diabetes mellitus Unknown Advance Directives Documents on File Type Date Recorded Patient Inside Sales Agent Expl anation ACP-Advance Directive ACP-Power of Public Address System Operator Documents on File Type Date Recorded Patient Inside Sales Agent Expl anation ACP-Advance Directive ACP-Power of Public Address System Operator Latest Code Status on File Code Status Date Activated Date Inactivated Comments Full Code 12/13/2020 6:39 PM Full Code 12/13/2020 11:27 AM 12/13/2020 6:33 PM Reason for Referral Status Reason Specialty Diagnoses / Procedures Referre d By Contact Referred To Contact [facility] Diagnoses Neurogenic thoracic outlet syndrome of right brachial plexus Procedures EKG 12 lead Juli Cantor MD [address] [place] [address] Discharge Instructions * Instructions* Valencia Latif RN - 12/06/2020 ARRIVE 2 HOURS PRIOR TO SURGERY BE AT THE HOSPITAL AT 11:00 am Check in at registration using photo ID and insurance card Have a responsible adult that will be able to take you home and will be able to stay with you when you are home. NO FOOD AFTER MIDNIGHT THE NIGHT BEFORE SURGERY This includes candy, gum, and mints MAY have CLEAR LIQUIDS (WATER, APPLE JUICE, CRANBERRY JUICE, BLACK COFFEE, TEA, CARBONATED POP GATORADE) To drink until arrival time for surgery Wear loose comfortable clean clothing that you can go home in Leave all jewelry, contact lenses and valuables at home ONLY ONE visitor is permitted at this time Bring printed medication list with you Write the date and times of last dose DO NOT USE alcohol, recreational drugs or tobacco products for 24 hours before surgery Please write down any questions that you may have for your surgeon, anesthesiologist, Etc. HOLD MULTIVITAMINS FOR 5 DAYS BEFORE SURGERY MAY TAKE ALL OTHER MEDICATIONS PRESCRIBED * Attachments The following attachments cannot be sent through Care Everywhere. * Thoracic Outlet Syndrome: General Info (Grenadian) documented in this encounter* Discharge Instr - Diet* Alexandria Tineo RN - 12/16/2020 1:11 PM EDT Good nutrition is important when healing from an illness, injury, or surgery. Follow any nutrition recommendations given to you during your hospital stay. If you were given an oral nutrition supplement while in the hospital, continue to take this supplement at home. You can take it with meals, in-between meals, and/or before bedtime. These supplements can be purchased at most local grocery stores, pharmacies, and chain [employer]stores. If you have any questions about your diet or nutrition, call the hospital and ask for the dietitian. * Additional Instructions* Alexandria Tineo RN - 12/16/2020 Pain Control: You may be prescribed an opiate pain medication after your procedure. These are otherwise known as narcotics and should be taken only as prescribed. DO NOT operate a vehicle, heavy machinery, appliances, or drink alcohol while on this medication. For additional pain/swelling relief, you may ice and elevate the surgical site(s). Note: It is normal to have a certain degree of pain after an operation. Our office is only able to prescribe pain medications within a short period after surgery with few exceptions. Due to certain limitations, prescriptions may need to be picked up in person. If requiring a refill over a weekend, we ask that you please call our office before 1:00pm on Saturday. Constipation: Opiates referred as Narcotics may be prescribed for pain and can cause constipation: We recommend that patients take precautions to prevent this: Drink plenty of water (6-8 glasses of 8 oz. per day). Avoid alcohol or excessive caffeine. Eat plenty of fiber (fruits, vegetables and whole grains). Take an over the counter stool softener: Colace or Miralax as instructed on the bottle each day that you are on Narcotics. Nausea: Some pain medications may cause nausea: If this occurs, call your doctor and he/she may prescribe anti-nausea medication as needed. Diet: Resume low-fat, low cholesterol diet high in vegetables. If you are on a specific type of diet for your condition, please resume that instead. Activity: DO NOT lift anything over 5 pounds (gallon of milk) for the first month. Do your physical therapy stretches 2-3 times per day starting in 1 month. Outpatient physical therapy will resume starting in 1 month. Limit repetitive and overhead use of your surgical arm for the first month. Driving: You may drive when you are no longer taking pain medication and you can move your neck from-side -to side and have regained full motion in your neck and chest area. Work: You may return to work after you have received clearance from your surgeon. Dressing and Wound Care Instructions: Thoracic Outlet: 1. You will be discharged with a dressing on you chest. 2. You may wash your incision or shower with soap and water after 72 hours. Rinse and pat dry. DO NOT apply lotions, peroxide or alcohol. 3. DO NOT USE baths, hot tubs, and pools unless told to do so. 4. If your wound becomes red, severely swollen and has pus-like drainage and you have a fever 100 degrees or more, call our office as soon as possible. Emergency: 1. Notify my office if you develop any fever (100 degrees or above), unexpected warmth, redness or swelling or severe increased pain at your surgical site. 2. Call 911 if you develop sudden chest pain or shortness of breath, difficulty with speech, one side of the face drooping or feeling numb, or unexplained clumsiness. 3. Regarding pain medications, please call the office before 1p on Saturday if you do not have enoughpain medicines for the weekend. If you have any questions about your surgery, please call our office documented in this encounter Assessments Diagnosis Neurogenic thoracic outlet syndrome of right brachial plexus Diagnosis Neurogenic thoracic outlet syndrome of right brachial plexus- Primary Thoracic outlet syndrome Brachial plexus lesions Hospital Course Note [facility] Discharge Summary Name: Janette Villegas Age: (40 y.o.) INPATIENT HOSPITAL SUMMARY: Admission Date: 12/13/2020 11:20 AM Admission Diagnosis: Neurogenic Thoracic outlet syndrome, RIGHT Surgery/Intervention: RIGHT thoracic outlet decompression Consults: None Discharge Date: 12/16/20 Discharge Diagnosis: Neurogenic Thoracic outlet syndrome, RIGHT Pt was taken to the OR 12/13/[address] Cantor for R thoracic outlet decompression. She tolerated the procedure well. On POD2 her R FABRICIO drain was removed after 2 days of scant SS output. She was discharged home in good condition. The patient's hospital course was uncomplicated and consisted of physical therapy, incision observation, and a return to normal oral intake. The patient was discharged tolerating a diet, moving bowels, and urinating without difficulty. The incisions were clean and intact. The patient was discharged in satisfactory condition with instructions to call the office for a follow up ap (more content not included)... History of Present Illness * Rigoberto Paulino MD - 12/16/2020 7:19 AM EDT Department of General Surgery Daily Progress Note SUBJECTIVE: No acute events overnight. Pain well controlled this morning. Good ROM in R arm. Still has soreness, but pain is improving. Patient feels ready to go home. OBJECTIVE: VITALS: BP 108/77 Pulse 62 Temp 96.9 F (36.1 C) (Temporal) Resp 16 Ht 5' 3 (1.6 m) Wt 153 lb (69.4 kg) LMP 11/21/2020 SpO2 98% BMI 27.10 kg/m INTAKE/OUTPUT: Date 12/16/20 0000 - 12/16/202358 Shift 1860-1070 7133-3433 0277-2321 24 Hour Total INTAKE Shift Total(mL/kg) OUTPUT Drains(mL/kg) 5(0.1) 5(0.1) Shift Total(mL/kg) 5(0.1) 5(0.1) Weight (kg) 69.4 69.4 69.4 69.4 I/O last 3 completed shifts: In: 650 [P.O.:650] Out: 15 [Drains:15] No intake/output data recorded. PHYSICAL EXAM: Gen: NAD, alert, pain well controlled Heart: RRR, well perfused Lungs: symmetric chest rise, normal work of breathing Abd: soft, non tender, non distended. Non rigid. Ext: no c/c/e no gross deformities Skin: warm, well perfused, <2 cm cap refill, no obvious rashes, cellulitis or gross discoloration, steri strips in place over incision, drain with thin SS output. No winging of either scapula. LABS CBC: Recent Labs 12/14/20 0012 12/15/20 0354 12/16/20 0055 WBC 11.2* 11.0* 11.4* HGB 12.2 14.2 13.6 HCT 36.9 42.9 40.1 PLT 250 253 298 BMP: Recent Labs 12/14/20 0012 12/15/20 0354 12/16/20 0055 NA 135 139 136 K 4.8 4.3 4.1 CL 106 106 102 CO2 20* 23 25 BUN 8 12 14 CREATININE 0.58 0.67 0.70 GLUCOSE 152* 90 103* Hepatic: No results for input(s): AST, ALT, ALB, BILITOT, ALKPHOS in the last 72 hours. Current Inpatient Medications Scheduled Meds: fluticasone 2 spray Each Nostril Daily sertraline 50 mg Oral Daily sodium chloride flush 10 mL Intravenous 2 times per day acetaminophen 650 mg Oral Q6H sennosides-docusate sodium 2 tablet Oral Daily enoxaparin 40 mg Subcutaneous Daily Continuous Infusions: PRN Meds:meclizine, sodium chloride flush, labetalol, hydrALAZINE, oxyCODONE OR oxyCODONE, morphine, ondansetron OR ondansetron, bisacodyl ASSESSMENT AND PLAN: 40 y.o. female s/p R TOD 12/13. Post-operatively, she is doing well. -Regular diet -SLIV -Will plan to remove drain today -OT -PO and IV pain control -likely discharge today Associated attestation - Juli Cantor MD - 12/16/2020 12:26 PM EDT I have evaluated the patient and agree with the assessment and plan. * Chica Mclaughlin - 12/15/2020 7:31 AM EDT .Nutrition rescreen completed. Chart reviewed. Patient to be monitored and followed by the diet windows laptop technician..JESSE Tatum * Rigoberto Paulino MD - 12/15/2020 7:08 AM EDT Department of General Surgery Daily Progress Note SUBJECTIVE: No acute events overnight. Pain well controlled this morning. Good ROM in R arm. Still has soreness but pain is improving. OBJECTIVE: VITALS: BP 112/75 Pulse 59 Temp 97.3 F (36.3 C) (Temporal) Resp 18 Ht 5' 3 (1.6 m) Wt 153 lb (69.4 kg) LMP 11/21/2020 SpO2 97% BMI 27.10 kg/m INTAKE/OUTPUT: Date 12/15/20 - 12/15/20 235 Shift 9883-2665 1124-1833 3443-4492 24 Hour Total INTAKE Shift Total(mL/kg) OUTPUT Drains(mL/kg) 20(0.3) 20(0.3) Shift Total(mL/kg) 20(0.3) 20(0.3) Weight (kg) 69.4 69.4 69.4 69.4 I/O last 3 completed shifts: In: 200 [P.O.:200] Out: 45 [Drains:45] No intake/output data recorded. PHYSICAL EXAM: Gen: NAD, alert, pain well controlled Heart: RRR, well perfused Lungs: symmetric chest rise, normal work of breathing Abd: soft, non tender, non distended. Non rigid. Ext: no c/c/e no gross deformities Skin: warm, well perfused, <2 cm cap refill, no obvious rashes, cellulitis or gross discoloration, steri strips in place over incision, drain with thin SS output. No winging of either scapula. LABS CBC: Recent Labs 12/14/20 0012 12/15/20 0354 WBC 11.2* 11.0* HGB 12.2 14.2 HCT 36.9 42.9 PLT 250 253 BMP: Recent Labs 12/14/20 0012 12/15/20 0354 NA 135 139 K 4.8 4.3 CL 106 106 CO2 20* 23 BUN 8 12 CREATININE 0.58 0.67 GLUCOSE 152* 90 Hepatic: No results for input(s): AST, ALT, ALB, BILITOT, ALKPHOS in the last 72 hours. Current Inpatient Medications Scheduled Meds: fluticasone 2 spray Each Nostril Daily sertraline 50 mg Oral Daily sodium chloride flush 10 mL Intravenous 2 times per day acetaminophen 650 mg Oral Q6H sennosides-docusate sodium 2 tablet Oral Daily enoxaparin 40 mg Subcutaneous Daily Continuous Infusions: PRN Meds:meclizine, sodium chloride flush, labetalol, hydrALAZINE, oxyCODONE OR oxyCODONE, morphine, ondansetron OR ondansetron, bisacodyl ASSESSMENT AND PLAN: 40 y.o. female s/p R TOD 12/13. Post-operatively, she is doing well. -Regular diet -SLIV -Monitor drain output -OT -PO and IV pain control -likely discharge tomorrow Associated attestation - Juli Cantor MD - 12/15/2020 1:38 PM EDT I have evaluated the patient and agree with the assessment and plan. * Logan Whitley MD - 12/14/2020 6:50 AM EDT Department of General Surgery Daily Progress Note SUBJECTIVE: No acute events overnight. Pain well controlled this morning. Good ROM in R arm, pain improved. OBJECTIVE: VITALS: BP (!) 99/56 Pulse 69 Temp 98.7 F (37.1 C) (Temporal) Resp 13 Ht 5' 3 (1.6 m) Wt153 lb (69.4 kg) LMP 11/21/2020 SpO2 97% BMI 27.10 kg/m INTAKE/OUTPUT: Date 12/14/20 0000 - 12/14/202358 Shift 9301-5084 1813-3351 6568-4073 24 Hour Total INTAKE Shift Total(mL/kg) OUTPUT Drains(mL/kg) 50(0.7) 50(0.7) Shift Total(mL/kg) 50(0.7) 50(0.7) Weight (kg) 69.4 69.4 69.4 69.4 I/O last 3 completed shifts: In: 1100 [I.V.:1100] Out: 860 [Emesis/NG output:500; Drains:60; Blood:300] I/O this shift: In: - Out: 50 [Drains:50] PHYSICAL EXAM: Gen: NAD, alert, pain well controlled Heart: RRR, well perfused Lungs: symmetric chest rise, normal work of breathing Abd: soft, non tender, non distended. Non rigid. Ext: no c/c/e no gross deformities Skin: warm, well perfused, <2 cm cap refill, no obvious rashes, cellulitis or gross discoloration R clavicular wound dressin C/D/I, drain with 100cc thin SS output LABS CBC: Recent Labs 12/14/20 0012 WBC 11.2* HGB 12.2 HCT 36.9 PLT 250 BMP: Recent Labs 12/14/20 0012 NA 135 K 4.8 CL 106 CO2 20* BUN 8 CREATININE 0.58 GLUCOSE 152* Hepatic: No results for input(s): AST, ALT, ALB, BILITOT, ALKPHOS in the last 72 hours. Current Inpatient Medications Scheduled Meds: fluticasone 2 spray Each Nostril Daily sertraline 50 mg Oral Daily sodium chloride flush 10 mL Intravenous 2 times per day acetaminophen 650 mg Oral Q6H sennosides-docusate sodium 2 tablet Oral Daily enoxaparin 40 mg Subcutaneous Daily Continuous Infusions: PRN Meds:meclizine, sodium chloride flush, labetalol, hydrALAZINE, oxyCODONE OR oxyCODONE, morphine, ondansetron OR ondansetron, bisacodyl ASSESSMENT AND PLAN: 40 y.o. female POD 1 s/p R TOD -Regular diet -SLIV -Monitor drain output -OT -PO and IV pain control -Dispo planning WDW Dr Danielito Whitley MD PGY1, General Surgery Pager #[phone] Associated attestation - Juli Cantor MD - 12/14/2020 2:23 PM EDT I have evaluated the patient and agree with the assessment and plan. * Lily Cardona RPH - 12/13/2020 6:48 PM EDT Janette Nava Villegas was ordered HAIR/SKIN/NAILS BOTIN. Per [facility] Policy #4005, herbals andcertain dietary supplements are automatically discontinued for the duration of the hospital stay. The product remains on the Home Medication List for resumption at discharge unless specifically discontinued by the prescriber. If there is a need for acute treatment using this agent, please contact the pharmacy for further assistance. Lily Bragg RPh * Kenna Wood RN - 12/13/2020 6:31 PM EDT Patient to be admitted to [facility]. Telephone report given to MAIRA Coburn with all questions answered at this time. Vital signs returned to baseline, patient awakens easily to voice, oriented x4. Monitoring completed. Patient transported via bed with RNx1 . Family notified of room number and transport. * Kenna Wood RN - 12/13/2020 3:43 PM EDT Patient admitted to PACU recovery from OR via bed. ID verified. Monitoring initiated with all audible alarms set. TOBACCO FARMWORKER handoff received at bedside with all questions answered. All vital signs stable at this time. Family updated via messenger. documented in this encounter Chief Complaint and Reason for Visit Chief Complaint Annual (R PROGRAMMER) SCREENING skin tag removal Chief Complaint Annual (R PROGRAMMER) SCREENING skin tag removal Reason for Visit Encounter for routin e gynecological examination Skin tag of female perineum Chief Complaint Annual (R PROGRAMMER) SCREENING Reason for Visit Encounter for routin e gynecological examination Chief Complaint Admit Date Annual (R PROGRAMMER) March 15, 2025 1:16 pm Reason for Visit Admit Date Encounter for routine gynecological exam ination March 15, 2025 1:16pm Chief Complaint Admit Date Annual (R PROGRAMMER) March 15, 2025 1:16 pm Screening for breast cancer March 19, 2 025 3:24pm RIGHT ABNORMAL BI March 23, 2025 9:23a m Additional Source Comments INFORMATION SOURCE (unrecogn ized section and content) DATE CREATED AUTHOR 03/21/2018 [facility] DATE CREATED AUTHOR AUTHOR'S ORGANIZ ATION 07/14/2020 [facility] DATE CREATED AUTHOR AUTHOR'S ORGANIZ ATION 12/11/2020 [facility] [employer] DATE CREATED AUTHOR AUTHOR'S ORGANIZ ATION 12/16/2020 [facility] [employer] DATE CREATED AUTHOR AUTHOR'S ORGANIZ ATION 12/22/2020 [facility] [employer] DATE CREATED AUTHOR AUTHOR'S ORGANIZ ATION 03/25/[address] 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 Intended supply: 7 days. Take lowest dose possible to manage pain 28 tablet 0 12/16/2020 12/23/2020 Goals (unrecognized section and content) Goals may be documented in a n alternate sectionGoals may be documented in an alternate sectionGoals may be documented in an alternate section No data available for this section No data available for this section No data available for this section No data available for this sectionGoals may be documented in an alternate sectionGoals may be documented in an alternate section Care Teams (unrecognized sec tion and content) Team Status: Active Member Role Status Dates Dr. Deniz Melchor MD Family Provider Active Dr. Deniz Melchor MD Primary Care Provider Active Team Status: Inactive Member Role Status Dates Dr. Deniz Melchor MD Primary Care Provider, Referrin g Provider Active Kesha Mallory ENGINE LATHE SET UP OPERATOR, ENGINE LATHE SET UP OPERATOR-C Attending Provider Active Team Status: Inactive Member Role Status Dates Dr. Deniz Melchor MD Primary Care Provider Active Kesha Mallory ENGINE LATHE SET UP OPERATOR, ENGINE LATHE SET UP OPERATOR-C Attending Provider, Referring Provider Active Team Status: Inactive Member Role Status Dates Dr. Deniz Melchor MD Primary Care Provider Active Start: March 15, 2025 End: March 15, 2025 Dr. Deniz Melchor MD Referring Provider Active Start: March 15, 2025 End: March 15, 2025 Kesha Mallory ENGINE LATHE SET UP OPERATOR, ENGINE LATHE SET UP OPERATOR-C Attending Provider Active Start: March 15, 2025 End: March 15, 2025 Team Status: Active Member Role/Relationship Status Dates Dr. Deniz Melchor MD Primary Care Provider Active Team Status: Inactive Member Role/Relationship Status Dates Dr. Deniz Melchor MD Primary Care Provider Active Start: March 15, 2025 End: March 15, 2025 Dr. Deniz Melchor MD Referring Provider Active Start: March 15, 2025 End: March 15, 2025 Kesha Mallory ENGINE LATHE SET UP OPERATOR, ENGINE LATHE SET UP OPERATOR-C Attending Provider Active Start: March 15, 2025 End: March 15, 2025 Team Status: Inactive Member Role/Relationship Status Dates Dr. Deniz Melchor MD Primary Care Provider Active Start: March 19, 2025 End: March 19, 2025 Kesha Mallory ENGINE LATHE SET UP OPERATOR, ENGINE LATHE SET UP OPERATOR-C Attending Provider Active Start: March 19, 2025 End: March 19, 2025 CORNELIUS Rhodes NP Referring Provider Active Start: March 19, 2025 End: March 19, 2025 Team Status: Active Member Role/Relationship Status Dates Dr. Deniz Melchor MD Primary Care Provider Active Start: March 23, 2025 CORNELIUS Rhodes NP Attending Provider Active Start: March 23, 2025 CORNELIUS Rhodes NP Referring Provider Active Start: March 23, 2025 FOR RECORDS PERTAINING TO PATIENTS WHO ARE OR HAVE BEEN ENROLLED IN A CHEMICAL DEPENDENCY/SUBSTANCEABUSE PROGRAM, SOME INFORMATION MAY BE OMITTED. This clinical summary was aggregated from multiple sources. Caution should be exercised in using it in the provision of clinical care. This summary normalizes information from multiple sources, and as a consequence, information in this document may materially change the coding, format and clinical context of patient data. In addition, data may be omitted in some cases. CLINICAL DECISIONS SHOULD BE BASED ON THE PRIMARY CLINICAL RECORDS. [facility] [employer] [facility]. provides no warranty or guarantee of the accuracy or completeness of information in this document.
== END | disposition home or self-care (01) ==
LOC: OPBI 09:26
PROVIDERS: PCP Family Medicine; Referring Provider Nurse Practitioner Women's Health; Visit Provider Nurse Practitioner Women's Health
DX: N64.89 Other specified disorders of breast (principal)
CPT/HCPCS: 76642; 77061; 77065; G0279